=== PATIENT | female | born 1935 | race Caucasian/White ===

== ENCOUNTER 2022-01-25 16:37 | Inpatient (IN) | payer MEDICARE, SELFPAY ==
--- NOTE | ~2022-01-25 | CT_ITS ---
EXAMINATION: CT HEAD WITHOUT CONTRAST CLINICAL INFORMATION: Confusion COMPARISON: None TECHNIQUE: Imaging was performed from the skull base to vertex without intravenous administration of contrast. This CT examination was performed using dose optimization techniques as appropriate, variously including the following: *Automated exposure control *Adjustment of mA and/or kV according to patient size (this includes techniques or standardized protocols for targeted exams where dose is matched to indication/reason for exam; i.e. extremities or head) *Use of iterative reconstruction technique Total exam dose length product: 632 mGy-cm FINDINGS: No intra or extra-axial fluid collection, hemorrhage, or mass. No ventriculomegaly. No midline shift or herniation. Basal cisterns are patent. Serrano-white matter differentiation is maintained. No territorial encephalomalacia. Proportional prominence of the ventricles and sulcal spaces is consistent with mild volume loss. Patchy periventricular and deep white matter hypoattenuation is consistent with moderate small vessel ischemic changes. Basal ganglia, bilateral cerebellar and scattered punctate supratentorial white matter calcifications are noted incidentally. No calvarial fracture or soft tissue abnormality. The mastoid air cells and visualized portions of the paranasal sinuses are well aerated. Status post bilateral lens extractions. CT/CT head/brain wo con IMPRESSION: 1. No acute intracranial pathology. 2. Mild cerebral atrophy and moderate chronic small vessel ischemic white matter change.
--- NOTE | 2022-01-25 16:40 | ED_ITS ---
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 Patient's provider from the assisted living facility, [facility] called and explained the patient has been escalating. States that she tried to order labs on the patient and a urine sample but they haven't been done. She also states she started the patient on Zoloft and Trazadone but it doesn't seem to be helping. Patient is alert and oriented to herself but is confused about time and location. Patient denies any complaints at this time. <IRIS Munroe - Last Filed: 01/25/22 17:46> Onset (ago): day(s) <IRIS Munroe - Last Filed: 01/25/22 17:46> Severity scale (1-10): 1 <IRIS Munroe - Last Filed: 01/25/22 17:46> Relieving factors: none <IRIS Munroe - Last Filed: 01/25/22 17:46> Exacerbating factors: none <IRIS Munroe Last Filed: 01/25/22 17:46> Associated symptoms: denies other symptoms <IRIS Munroe - Last Filed: 01/25/22 17:46> Treatments prior to arrival: none <IRIS Munroe Last Filed: 01/25/22 17:46> Related Data Home medications: Home Medications Medication Instructions Recorded Confirmed sertraline 50 mg tablet 50 mg PO DAILY 01/26/22 01/26/22 trazodone 50 mg tablet 25 mg PO BID 01/26/22 01/26/22 <IRIS Munroe Last Filed: 01/25/22 17:46> Allergies/adverse reactions: Allergies Allergy/AdvReac Type Severity Reaction Status Date / Time codeine Allergy Mild Hives Verified 01/25/22 16:47 Sulfa (Sulfonamide Allergy Mild HIVES Verified 01/25/22 16:47 Antibiotics) <IRIS Munroe Last Filed: 01/25/22 17:46> Review of Systems Constitutional: Constitutional: Reports no additional constitutional complaints, Denies chills, Denies fever(s) and Denies night sweats <IRIS Munroe Last Filed: 01/25/22 17:46> Eyes: Eyes: Reports no additional eye complaints, Denies blurry vision, Denies change in vision, Denies diplopia, Denies eye discharge, Denies loss of vision and Denies eye pain <IRIS Munroe Last Filed: 01/25/22 17:46> ENT: Denies dizziness <IRIS Munroe Last Filed: 01/25/22 17:46> Cardiovascular: Cardiovascular: Reports no additional cardiovascular complaints, Denies chest pain, Denies lightheadedness, Denies Loss of Consciousness and Denies dyspnea <IRIS Munroe Last Filed: 01/25/22 17:46> Respiratory: Respiratory: Reports no additional respiratory complaints and Denies dyspnea <IRIS Munroe Last Filed: 01/25/22 17:46> Gastrointestinal: Gastrointestinal: Reports no additional gastrointestinal complaints, Denies abdominal pain, Denies melena, Denies hematochezia, Denies change in bowel habits and Denies change in stool character <IRIS Munroe Last Filed: 01/25/22 17:46> Genitourinary: Genitourinary: Denies hematuria, Denies urinary frequency, Denies dysuria, Denies urinary incontinence, Denies urinary hesitancy and Denies urinary urgency <IRIS Munroe Last Filed: 01/25/22 17:46> Musculoskeletal: Musculoskeletal: Reports no additional musculoskeletal complaints, Denies numbness and Denies tingling <IRIS Munroe - Last Filed: 01/25/22 17:46> Neurologic: Reports confusion, Denies dizziness, Denies loss of vision, Reports memory loss, Denies numbness and Denies tingling <IRIS Munroe - Last Filed: 01/25/22 17:46> Psychiatric: Psychiatric: Reports confusion, Reports irritability and Reports memory loss <IRIS Munroe - Last Filed: 01/25/22 17:46> Endocrine: Endocrine: Reports no additional endocrine complaints <IRIS Munroe - Last Filed: 01/25/22 17:46> Hematologic/Lymphatic: Hematologic/Lymphatic: Reports no additional hematologic/lymphatic complaints <IRIS Munroe - Last Filed: 01/25/22 17:46> Allergic/Immunologic: Allergic/Immunologic: Reports no additional allergic/imm unologic complaints <IRIS Munroe - Last Filed: 01/25/22 17:46> [facility] Past Medical History Attestation statement: The following information was validated with the patient. <IRIS Munroe - Last Filed: 01/25/22 17:46> Source: old records reviewed <IRIS Munroe - Last Filed: 01/25/22 17:46> Social History Social History: Social History Advance Directives: Yes Advance Directives Information Provided: No Advance Directives on File: No <IRIS Munroe - Last Filed: 01/25/22 17:46> Physical Exam ED Vital Signs: Vital Signs - 24 hr 01/25/22 16:53 01/25/22 18:00 01/25/22 20:00 Temperature 98.4 F 97.9 F 97.2 F Pulse Rate 69 61 64 Respiratory Rate 18 16 16 Blood Pressure 131/49 L 139/76 130/72 Pulse Oximetry 90 L 98 98 Oxygen Delivery Method Room Air Room Air Room Air 01/25/22 22:00 01/26/22 06:00 01/26/22 13:23 Temperature 98.2 F Pulse Rate 61 55 61 Respiratory Rate 16 16 18 Blood Pressure 105/45 L 144/54 H Pulse Oximetry 98 96 97 Oxygen Delivery Method Room Air Nasal Cannula Room Air BMI result Body Mass Index 23.6 <IRIS Munroe - Last Filed: 01/25/22 17:46> Vital Signs - 24 hr 01/25/22 16:53 01/25/22 18:00 01/25/22 20:00 Temperature 98.4 F 97.9 F 97.2 F Pulse Rate 69 61 64 Respiratory Rate 18 16 16 Blood Pressure 131/49 L 139/76 130/72 Pulse Oximetry 90 L 98 98 Oxygen Delivery Method Room Air Room Air Room Air 01/25/22 22:00 01/26/22 06:00 01/26/22 13:23 Temperature 98.2 F Pulse Rate 61 55 61 Respiratory Rate 16 16 18 Blood Pressure 105/45 L 144/54 H Pulse Oximetry 98 96 97 Oxygen Delivery Method Room Air Nasal Cannula Room Air BMI result Body Mass Index 23.6 <IRIS Chacko - Last Filed: 01/26/22 13:40> Const General: confusion <IRIS Munroe - Last Filed: 01/25/22 17:46> Nutritional Appearance: well nourished <IRIS Munroe - Last Filed: 01/25/22 17:46> Orientation/consciousness: confusion <IRIS Munroe - Last Filed: 01/25/22 17:46> Limitations: no limitations <IRIS Munroe - Last Filed: 01/25/22 17:46> HENMT Head: Yes normal to inspection and Yes atraumatic <IRIS Munroe - Last Filed: 01/25/22 17:46> Ears: hearing grossly normal bilaterally and external ears normal <IRIS Munroe - Last Filed: 01/25/22 17:46> General nose exam: Normal external nose present, no nasal discharge noted and no epistaxis <IRIS Munroe - Last Filed: 01/25/22 17:46> Face and sinus: Yes normal facial exam, No abrasion and No laceration <IRIS Munroe Last Filed: 01/25/22 17:46> Mouth: Normal oral and palatal mucosa present, no drooling and no muffled voice <IRIS Munroe Last Filed: 01/25/22 17:46> Eyes General: appearance normal, both eyes and all related structures <IRIS Munroe - Last Filed: 01/25/22 17:46> Periorbital: periorbital findings normal <Xi Harman PA - Last Filed: 01/25/22 17:46> Eyelids: Yes eyelids normal <Xi Harman PA - Last Filed: 01/25/22 17:46> Conjunctivae: conjunctivae normal <Xi Harman PA - Last Filed: 01/25/22 17:46> Pupils: Equal, round and reactive pupils present <Xi Harman PA - Last Filed: 01/25/22 17:46> EOM: EOMs intact bilaterally <Xi Harman PA - Last Filed: 01/25/22 17:46> Neck Neck: Yes normal visual inspection, Yes full ROM and Yes no lymphadenopathy <Xi Harman PA - Last Filed: 01/25/22 17:46> Chest Chest palpation & inspection: normal inspection of the chest <Xi HarmanIRIS - Last Filed: 01/25/22 17:46> Resp Effort & Inspection: normal respiratory effort and able to speak in complete sentences <Xi Harman PA - Last Filed: 01/25/22 17:46> Auscultation: clear to auscultation bilaterally <Xi Harman PA - Last Filed: 01/25/22 17:46> Cardio Rate: regular rate <Xi Harman PA - Last Filed: 01/25/22 17:46> Rhythm: regular rhythm <Xi Harman PA - Last Filed: 01/25/22 17:46> GI Inspection: Yes normal to inspection <Xi Harman PA - Last Filed: 01/25/22 17:46> Palpation (GI): Soft to palpation, not firm, nontender and no guarding <Xi Harman PA - Last Filed: 01/25/22 17:46> Neuro General: confusion <Xi Harman PA - Last Filed: 01/25/22 17:46> Cranial nerves: Yes Equal, round and reactive pupils present <Xi HarmanIRIS - Last Filed: 01/25/22 17:46> Cognition (Neuro): normal cognition <Xi HarmanIRIS - Last Filed: 01/25/22 17:46> Motor exam (neuro): 5/5 motor strength present throughout <IRIS Munroe - Last Filed: 01/25/22 17:46> Sensory Exam: Normal double simultaneous stimulation for sensation <IRIS Munroe - Last Filed: 01/25/22 17:46> Coordination: [id number] test normal <IRIS Munroe - Last Filed: 01/25/22 17:46> Extrem General: Yes normal to inspection, Yes full ROM and Yes capillary refill normal <IRIS Munroe - Last Filed: 01/25/22 17:46> Psych Appearance: grossly normal <IRIS Munroe - Last Filed: 01/25/22 17:46> Mental Status: mental status grossly normal <IRIS Munroe - Last Filed: 01/25/22 17:46> Affect: normal affect <IRIS Munroe - Last Filed: 01/25/22 17:46> Attitude: cooperative <IRIS Munroe - Last Filed: 01/25/22 17:46> Thought process: Illogical thought process present <IRIS Munroe - Last Filed: 0 01/25/22 17:46> Insight: Limited insight present (Psych) <IRIS Munroe - Last Filed: 01/25/22 17:46> Course Course Course Narrative: Spoke to [facility] prior to the patient's arrival. She requested the patient be cleared of delirium with basic labs, urine, and head CT and then started on anti-psychotic medications. She stated that the patient will be accepted back to her current facility as long as she is no longer combative. China can be reached at [phone] <IRIS Munroe - Last Filed: 01/25/22 17:46> Reevaluation(s) Reevaluation #1: 01/26/22--physician observation continued. Labs/imaging reviewed. Pending psychiatry consult. Patient agitated this morning, yelling and arguing with staff, not redirectable. IM Zyprexa ordered for patient and staff safety. <IRIS Chacko Last Filed: 01/26/22 13:40> Time: 09:59 <IRIS Chacko - Last Filed: 01/26/22 13:40> Reevaluation #2: Patient never received previous dose of IM Zyprexa, was able to be redirected. Now patient aggravated/aggressive and striking at staff. Will now give IM Zyprexa <IRIS Chacko - Last Filed: 01/26/22 13:40> Time: 13:24 <IRIS Chacko - Last Filed: 01/26/22 13:40> Medical Decision Making MDM Narrative Medical decision making narrative: Patient is an 86 year old female presenting to the emergency department today with increased agitation. Patient's physical exam was unremarkable. Patient's lab work and imaging is still pending as well as a psychiatry consult. Patient signed out to [facility]. <IRIS Munroe - Last Filed: 01/25/22 17:46> Differential Diagnosis Differential Diagnosis: psychosis <IRIS Munroe - Last Filed: 01/25/22 17:46> Medical Records Medical records reviewed: Yes I reviewed the patient's medical records. <IRIS Munroe - Last Filed: 01/25/22 17:46> Lab Data Result diagrams: : 01/25/22 19:34 01/25/22 19:59 <IRIS Munroe - Last Filed: 01/25/22 17:46> Labs: Lab Results 01/25/22 01/25/22 01/25/22 Range/Units 18:30 18:30 19:34 WBC 12.3 H (4.8-10.8) X10*3/uL RBC 4.19 L (4.20-5.50) X10*6/uL Hgb 13.4 (12.0-16.0) g/dl Hct 39.3 (37.0-47.0) % MCV 93.8 (80.0-98.0) fL MCH 32.0 (27.0-33.0) pg MCHC 34.1 (31.0-35.0) g/dl RDW 12.4 (11.0-16.0) % Plt Count 283 (160-400) X10*3/uL MPV 10.8 (9.4-12.3) fL Immature Gran % (Auto) 0.3 (0.0-0.4) % Neut % (Auto) 63.4 (45-73) % Lymph % (Auto) 27.3 (20-40) % [place] % (Auto) 6.4 (2-11) % Eos % (Auto) 2.0 (0-4) % Baso % (Auto) 0.6 (0-2) % Lymph # (Auto) 3.4 (1.2-4.9) X10*3/uL [place] # (Auto) 0.8 (0.1-1.2) X10*3/uL Eos # (Auto) 0.3 (0.0-0.4) X10*3/uL Baso # (Auto) 0.1 (0.0-0.2) X10*3/uL Abs Immat Gran (auto) 0.04 H (0.00-0.03) X10*3/uL Absolute Neuts (auto) 7.8 (2.0-8.3) x10*3/uL Absolute Nucleated RBC 0.000 (0.0-0.012) X10*3/uL Nucleated RBC % (auto) 0.0 (0.0-0.2) /100WBC Sodium (135-145) mmol/L Potassium (3.3-5.1) mmol/L Chloride (96-108) mmol/L Carbon Dioxide (22-29) mmol/L Anion Gap (12-20) BUN (9-16) mg/dL Creatinine (0.5-1.4) mg/dL Estim Creat Clear Calc Estimated GFR Random Glucose (60-115) mg/dL Calcium (8.4-10.2) mg/dL Magnesium (1.6-2.6) mg/dL Total Bilirubin (0.0-1.0) mg/dL AST (5-31) U/L ALT (0-31) U/L Alkaline Phosphatase (39-117) U/L Total Protein (6.5-8.0) g/dL Albumin (3.5-5.0) g/dL Urine Color Urine Appearance Urine pH (5.0-8.0) Ur Specific Valentine (1.005-1.025) Urine Protein (NEG-TRACE) MG/DL Urine Glucose (UA) (NEG) MG/DL Urine Ketones (NEG) MG/DL Urine Blood (NEG) Urine Nitrite (NEG) Ur Leukocyte Esterase (NEG) Urine RBC (0) /HPF Urine WBC (0-4) /HPF Ur Squamous Epith Cells /LPF Urine Bacteria /LPF Urine Mucus /LPF COVID-19 (KULDIP) Negative (Negative) COVID-19 Clin Com See Note Influenza Type A (LEONIE) Negative (Negative) Influenza Type B (LEONIE) Negative (Negative) Influenza A & B Note See Note 01/25/22 01/25/22 Range/Units 19:59 19:59 WBC (4.8-10.8) X10*3/uL RBC (4.20-5.50) X10*6/uL Hgb (12.0-16.0) g/dl Hct (37.0-47.0) % MCV (80.0-98.0) fL MCH (27.0-33.0) pg MCHC (31.0-35.0) g/dl RDW (11.0-16.0) % Plt Count (160-400) X10*3/uL MPV (9.4-12.3) fL Immature Gran % (Auto) (0.0-0.4) % Neut % (Auto) (45-73) % Lymph % (Auto) (20-40) % [place] % (Auto) (2-11) % Eos % (Auto) (0-4) % Baso % (Auto) (0-2) % Lymph # (Auto) (1.2-4.9) X10*3/uL [place] # (Auto) (0.1-1.2) X10*3/uL Eos # (Auto) (0.0-0.4) X10*3/uL Baso # (Auto) (0.0-0.2) X10*3/uL Abs Immat Gran (auto) (0.00-0.03) X10*3/uL Absolute Neuts (auto) (2.0-8.3) x10*3/uL Absolute Nucleated RBC (0.0-0.012) X10*3/uL Nucleated RBC % (auto) (0.0-0.2) /100WBC Sodium 138 (135-145) mmol/L Potassium 4.0 (3.3-5.1) mmol/L Chloride 110 H (96-108) mmol/L Carbon Dioxide 18 L (22-29) mmol/L Anion Gap 14 (12-20) BUN 20 H (9-16) mg/dL Creatinine 0.82 (0.5-1.4) mg/dL Estim Creat Clear Calc 44.3 Estimated GFR > 60 Random Glucose 102 (60-115) mg/dL Calcium 8.8 (8.4-10.2) mg/dL Magnesium 2.0 (1.6-2.6) mg/dL Total Bilirubin 0.3 (0.0-1.0) mg/dL AST 26 (5-31) U/L ALT 19 (0-31) U/L Alkaline Phosphatase 75 (39-117) U/L Total Protein 6.4 L (6.5-8.0) g/dL Albumin 3.6 (3.5-5.0) g/dL Urine Color YELLOW Urine Appearance CLEAR Urine pH 5.5 (5.0-8.0) Ur Specific Valentine 1.015 (1.005-1.025) Urine Protein NEG (NEG-TRACE) MG/DL Urine Glucose (UA) NEG (NEG) MG/DL Urine Ketones 5 (NEG) MG/DL Urine Blood NEG (NEG) Urine Nitrite NEG (NEG) Ur Leukocyte Esterase TRACE H (NEG) Urine RBC 1-4 (0) /HPF Urine WBC 0-2 (0-4) /HPF Ur Squamous Epith Cells TRACE /LPF Urine Bacteria NONE /LPF Urine Mucus TRACE /LPF COVID-19 (KULDIP) (Negative) COVID-19 Clin Com Influenza Type A (LEONIE) (Negative) Influenza Type B (LEONIE) (Negative) Influenza A & B Note <IRIS Munroe - Last Filed: 01/25/22 17:46> Lab Results 01/25/22 01/25/22 01/25/22 Range/Units 18:30 18:30 19:34 WBC 12.3 H (4.8-10.8) X10*3/uL RBC 4.19 L (4.20-5.50) X10*6/uL Hgb 13.4 (12.0-16.0) g/dl Hct 39.3 (37.0-47.0) % MCV 93.8 (80.0-98.0) fL MCH 32.0 (27.0-33.0) pg MCHC 34.1 (31.0-35.0) g/dl RDW 12.4 (11.0-16.0) % Plt Count 283 (160-400) X10*3/uL MPV 10.8 (9.4-12.3) fL Immature Gran % (Auto) 0.3 (0.0-0.4) % Neut % (Auto) 63.4 (45-73) % Lymph % (Auto) 27.3 (20-40) % [place] % (Auto) 6.4 (2-11) % Eos % (Auto) 2.0 (0-4) % Baso % (Auto) 0.6 (0-2) % Lymph # (Auto) 3.4 (1.2-4.9) X10*3/uL [place] # (Auto) 0.8 (0.1-1.2) X10*3/uL Eos # (Auto) 0.3 (0.0-0.4) X10*3/uL Baso # (Auto) 0.1 (0.0-0.2) X10*3/uL Abs Immat Gran (auto) 0.04 H (0.00-0.03) X10*3/uL Absolute Neuts (auto) 7.8 (2.0-8.3) x10*3/uL Absolute Nucleated RBC 0.000 (0.0-0.012) X10*3/uL Nucleated RBC % (auto) 0.0 (0.0-0.2) /100WBC Sodium (135-145) mmol/L Potassium (3.3-5.1) mmol/L Chloride (96-108) mmol/L Carbon Dioxide (22-29) mmol/L Anion Gap (12-20) BUN (9-16) mg/dL Creatinine (0.5-1.4) mg/dL Estim Creat Clear Calc Estimated GFR Random Glucose (60-115) mg/dL Calcium (8.4-10.2) mg/dL Magnesium (1.6-2.6) mg/dL Total Bilirubin (0.0-1.0) mg/dL AST (5-31) U/L ALT (0-31) U/L Alkaline Phosphatase (39-117) U/L Total Protein (6.5-8.0) g/dL Albumin (3.5-5.0) g/dL Urine Color Urine Appearance Urine pH (5.0-8.0) Ur Specific Valentine (1.005-1.025) Urine Protein (NEG-TRACE) MG/DL Urine Glucose (UA) (NEG) MG/DL Urine Ketones (NEG) MG/DL Urine Blood (NEG) Urine Nitrite (NEG) Ur Leukocyte Esterase (NEG) Urine RBC (0) /HPF Urine WBC (0-4) /HPF Ur Squamous Epith Cells /LPF Urine Bacteria /LPF Urine Mucus /LPF COVID-19 (KULDIP) Negative (Negative) COVID-19 Clin Com See Note Influenza Type A (LEONIE) Negative (Negative) Influenza Type B (LEONIE) Negative (Negative) Influenza A & B Note See Note 01/25/22 01/25/22 Range/Units 19:59 19:59 WBC (4.8-10.8) X10*3/uL RBC (4.20-5.50) X10*6/uL Hgb (12.0-16.0) g/dl Hct (37.0-47.0) % MCV (80.0-98.0) fL MCH (27.0-33.0) pg MCHC (31.0-35.0) g/dl RDW (11.0-16.0) % Plt Count (160-400) X10*3/uL MPV (9.4-12.3) fL Immature Gran % (Auto) (0.0-0.4) % Neut % (Auto) (45-73) % Lymph % (Auto) (20-40) % [place] % (Auto) (2-11) % Eos % (Auto) (0-4) % Baso % (Auto) (0-2) % Lymph # (Auto) (1.2-4.9) X10*3/uL [place] # (Auto) (0.1-1.2) X10*3/uL Eos # (Auto) (0.0-0.4) X10*3/uL Baso # (Auto) (0.0-0.2) X10*3/uL Abs Immat Gran (auto) (0.00-0.03) X10*3/uL Absolute Neuts (auto) (2.0-8.3) x10*3/uL Absolute Nucleated RBC (0.0-0.012) X10*3/uL Nucleated RBC % (auto) (0.0-0.2) /100WBC Sodium 138 (135-145) mmol/L Potassium 4.0 (3.3-5.1) mmol/L Chloride 110 H (96-108) mmol/L Carbon Dioxide 18 L (22-29) mmol/L Anion Gap 14 (12-20) BUN 20 H (9-16) mg/dL Creatinine 0.82 (0.5-1.4) mg/dL Estim Creat Clear Calc 44.3 Estimated GFR > 60 Random Glucose 102 (60-115) mg/dL Calcium 8.8 (8.4-10.2) mg/dL Magnesium 2.0 (1.6-2.6) mg/dL Total Bilirubin 0.3 (0.0-1.0) mg/dL AST 26 (5-31) U/L ALT 19 (0-31) U/L Alkaline Phosphatase 75 (39-117) U/L Total Protein 6.4 L (6.5-8.0) g/dL Albumin 3.6 (3.5-5.0) g/dL Urine Color YELLOW Urine Appearance CLEAR Urine pH 5.5 (5.0-8.0) Ur Specific Valentine 1.015 (1.005-1.025) Urine Protein NEG (NEG-TRACE) MG/DL Urine Glucose (UA) NEG (NEG) MG/DL Urine Ketones 5 (NEG) MG/DL Urine Blood NEG (NEG) Urine Nitrite NEG (NEG) Ur Leukocyte Esterase TRACE H (NEG) Urine RBC 1-4 (0) /HPF Urine WBC 0-2 (0-4) /HPF Ur Squamous Epith Cells TRACE /LPF Urine Bacteria NONE /LPF Urine Mucus TRACE /LPF COVID-19 (KULDIP) (Negative) COVID-19 Clin Com Influenza Type A (LEONIE) (Negative) Influenza Type B (LEONIE) (Negative) Influenza A & B Note <IRIS Chacko - Last Filed: 01/26/22 13:40> Discharge Plan Discharge Clinical Impression: Aggression <IRIS Munroe - Last Filed: 01/25/22 17:46> Patient Disposition: Still a Patient <IRIS Munroe - Last Filed: 01/25/22 17:46> Prescriptions: No Action trazodone 50 mg tablet 25 mg PO BID sertraline 50 mg tablet 50 mg PO DAILY <IRIS Munroe - Last Filed: 01/25/22 17:46>
--- NOTE | 2022-01-25 16:48 | ECG_ITS ---
Test Reason : ALTERED MENTAL Blood Pressure : / mmHG Vent. Rate : 062 BPM Atrial Rate : 062 BPM P-R Int : 134 ms QRS Dur : 088 ms QT Int : 408 ms P-R-T Axes : 062 048 082 degrees QTc Int : 414 ms Normal sinus rhythm Nonspecific T wave abnormality Abnormal ECG No previous ECGs available Referred By: Xi Harman Electronically Signed By:KYLE SANCHEZ MD
[2022-01-25 16:53] VITALS: BP 112/53; BP 131/49; PULSE 100; PULSE 69; RESP 18; TEMP 36.9; O2SAT 90; O2SAT 97; BMI 23.6
[2022-01-25 18:00] VITALS: BP 139/76; PULSE 61; RESP 16; TEMP 36.6; O2SAT 98
[2022-01-25] MEDS: OLANZapine 10 MG TABLET PO (18:36)
[2022-01-25 19:02] LABS: COVID-19 Test Negative (Negative); IDNOW Serial# 16C4AD1C; Influenza A Negative (Negative); Influenza B2 Negative (Negative)
--- NOTE | 2022-01-25 19:16 | PC.NURSE ---
PATIENT IS COMBATIVE ,UNABLE TO GET LABS ,RN AND PROVIDER AWARE .
[2022-01-25 19:40] LABS: MANUAL DIFF FLAG NO
[2022-01-25 19:42] LABS: Basophils Absolute Auto 0.1 X10*3/uL (0.0-0.2); Basophils Percent Auto 0.6 % (0-2); Eosinophils Absolute Auto 0.3 X10*3/uL (0.0-0.4); Hematocrit 39.3 % (37.0-47.0); Hemoglobin 13.4 g/dl (12.0-16.0); Imm Gran Abs Auto 0.04 X10*3/uL (0.00-0.03); Imm Gran Pct Auto 0.3 % (0.0-0.4); Lymphocytes Absolute Auto 3.4 X10*3/uL (1.2-4.9); Lymphocytes Percent Auto 27.3 % (20-40); Mean Corpuscular HGB Conc 34.1 g/dl (31.0-35.0); Mean Corpuscular Volume 93.8 fL (80.0-98.0); Mean Platelet Volume 10.8 fL (9.4-12.3); Monocytes Absolute Auto 0.8 X10*3/uL (0.1-1.2); Monocytes Percent Auto 6.4 % (2-11); Neutrophils Absolute Auto 7.8 x10*3/uL (2.0-8.3); Neutrophils Percent Auto 63.4 % (45-73); Platelet Count 283 X10*3/uL (160-400); Red Blood Count 4.19 X10*6/uL (4.20-5.50); Red Cell Distribution Width 12.4 % (11.0-16.0); White Blood Count 12.3 X10*3/uL (4.8-10.8)
[2022-01-25 20:00] VITALS: BP 130/72; PULSE 64; RESP 16; TEMP 36.2; O2SAT 98
[2022-01-25 20:11] LABS: Appearance Urine CLEAR; Color Urine YELLOW; Glucose Urine UA NEG (NEG); Leukocyte Esterase Urine TRACE (NEG); Nitrite Urine NEG (NEG); PH 5.5 (5.0-8.0); Specific Gravity - Urine 1.015 (1.005-1.025); Urine Blood NEG (NEG); Urine Ketones 5 MG/DL (NEG); Urine Protein NEG (NEG-TRACE)
[2022-01-25 20:25] LABS: Alanine Aminotransferase 19 U/L (0-31); Albumin Level 3.6 g/dL (3.5-5.0); Alkaline Phosphatase 75 U/L (39-117); Anion Gap 14 (12-20); Aspartate Amino Transferase 26 U/L (5-31); Bilirubin Total 0.3 mg/dL (0.0-1.0); Blood Urea Nitrogen 20 mg/dL (9-16); Calcium 8.8 mg/dL (8.4-10.2); Carbon Dioxide 18 mmol/L (22-29); Chloride 110 mmol/L (96-108); Creatinine Clr Calc Pharmacy 44.3; Estimated Glomerular Filt Rate > 60; Glucose Random 102 mg/dL (60-115); Sodium 138 mmol/L (135-145); Total Protein 6.4 g/dL (6.5-8.0)
[2022-01-25 20:36] LABS: Mucus Urine TRACE /LPF; Squamous Epithelial Cell Urine TRACE /LPF; WBC Urine 0-2 /HPF (0-4)
[2022-01-25 22:00] VITALS: PULSE 61; RESP 16; TEMP 36.8; O2SAT 98
[2022-01-26] VITALS (9 sets, daily range): BP systolic 105–152; BP diastolic 45–60; PULSE 55–72; RESP 16–20; TEMP 36.4–36.6; O2SAT 94–99; BMI 21.4
--- NOTE | 2022-01-26 08:11 | PHA.MEDREC ---
Pharmacy Consult ? Medication Reconciliation Pharmacy has completed the medication reconciliation. Patient came from [facility] with a medication list. Katty Botello, JuddD
--- NOTE | 2022-01-26 10:17 | PC.NURSE ---
Patient step miranda Watts cell # [phone]. would like to be updated on patients disposition after psych consult.
[2022-01-26] MEDS: OLANZapine 10 MG VIAL 5 MG IM ×2 (13:24→18:15)
--- NOTE | 2022-01-26 13:24 | PC.NURSE ---
Patient combative, uncooperative, attempting to climb out of bed and is unsteady on feet and unsafe. Not allowing staff to assist or help patient. Patient is violent and unwilling to take any medications. Tried to ensure needs were met. Attempted reorienting patient. Patient medicated with IM olanzapine as ordered. Respirations 20. Will continue to monitor.
--- NOTE | 2022-01-26 13:39 | PC.NURSE ---
Patient remains alert, combative, and disoriented. Continues to attempt to get out of bed. Staff at bedside to keep patient safe. Patient arguing she does not want help but is unsteady. Patient refuses vitals at this time. Respirations- 18.
--- NOTE | 2022-01-26 13:54 | PC.NURSE ---
Patient eating lunch independently on stretcher. Calm and cooperative at this time. Patient becomes agitated when attempting vitals. Respirations appear regular and even with equal chest rise/fall. Will continue to monitor.
--- NOTE | 2022-01-26 14:09 | PC.NURSE ---
Patient remains calm and cooperative. Remaining on stretcher, sitting upright, and alert. Respirations regular and even. Skin PWD. Refusing vitals, states I don't like that! Will continue to monitor.
--- NOTE | 2022-01-26 14:24 | PC.NURSE ---
Patient remains sitting upright on stretcher and is calm and cooperative. Respirations remain regular and even. Chela SIMMONS at bedside for 1 hour re-evaluation.
--- NOTE | 2022-01-26 14:34 | P.CNPS_ITS ---
History of Present Illness Date of Service: 01/26/2022 Chief Complaint: Combativeness Reason for Consult: combative in setting of dementia Discussed with referring provider: Yes Sources of Information: patient interviewed, chart reviewed and crisis/core team assessment reviewed HPI Narrative: Mrs. Luo is a 86 year-old woman with hx of alzheirmer's disease who resides at [facility] Memory unit. Mrs. Luo was brought via EMS to [facility] ED due to increase agression and agitation towards staff and others residents. Utox was negative. CBC with dif show slightly elevated WBC (12), CMP shows elevated BUN (20) but Cr wnl, elevated Cl. Head CT shows no acute pathology but does show volume loss and microvascular changes. Collateral information gathered from pt's OP geriatric provider China Price NP ([phone]) who reports pt has been on memory unit for past 2-3 weeks and has been combative, entering other residents room, at times difficult to redirect. China reports she started pt on sertraline and zoloft. Pt's step son, Mac ([phone]) reports pt with long hx of AD, living in her house until recently but he realizes that impairments had been going on for a very long time. He notes combativeness increasing as pt is confused. Mrs. Luo has been chemically restraint twice while in the ED with Olanzapine 5-10mg IM. Today, pt resting in bed, she tells this content writer that she is at her house and they (pointing at staff in ED) were trying to sit her at the dinner table. She states she didn't want to eat. She also has been yelling at RN and other staff that come to her room to get out of my house! Pt fairly pleasant as this content writer goes with her conversation. She reports she cooks and likes the food (in the hospital) which she thinks she cooked earlier. Past Psychiatric History: Inpatient: none OP: [facility] Past trials: sertraline, trazodone. Medical Evaluation Reviewed: Yes Review of Systems Review of Systems Yes Unobtainable due to mental status PMFSH Family History: unknown Social History: lives in memory unit at [facility] in [place]. She has step son, Mac. Substance History: None Trauma History: Unknown Diagnostics Vital Signs (24Hr): Vital Signs - 24 hr 01/25/22 16:53 01/25/22 18:00 01/25/22 20:00 Temperature 98.4 F 97.9 F 97.2 F Pulse Rate 69 61 64 Respiratory Rate 18 16 16 Blood Pressure 131/49 L 139/76 130/72 Pulse Oximetry 90 L 98 98 Oxygen Delivery Method Room Air Room Air Room Air 01/25/22 22:00 01/26/22 06:00 01/26/22 13:23 Temperature 98.2 F Pulse Rate 61 55 61 Respiratory Rate 16 16 18 Blood Pressure 105/45 L 144/54 H Pulse Oximetry 98 96 97 Oxygen Delivery Method Room Air Nasal Cannula Room Air 01/26/22 13:24 01/26/22 13:39 01/26/22 13:54 Temperature Pulse Rate Respiratory Rate 20 18 18 Blood Pressure Pulse Oximetry Oxygen Delivery Method BMI result Body Mass Index 23.6 Labs Results: 01/25/22 19:34 01/25/22 19:59 Labs: Laboratory Results - last 48 hr 01/25/22 01/25/22 01/25/22 18:30 18:30 19:34 WBC 12.3 H RBC 4.19 L Hgb 13.4 Hct 39.3 MCV 93.8 MCH 32.0 MCHC 34.1 RDW 12.4 Plt Count 283 MPV 10.8 Immature Gran % (Auto) 0.3 Neut % (Auto) 63.4 Lymph % (Auto) 27.3 [place] % (Auto) 6.4 Eos % (Auto) 2.0 Baso % (Auto) 0.6 Lymph # (Auto) 3.4 [place] # (Auto) 0.8 Eos # (Auto) 0.3 Baso # (Auto) 0.1 Abs Immat Gran (auto) 0.04 H Absolute Neuts (auto) 7.8 Absolute Nucleated RBC 0.000 Nucleated RBC % (auto) 0.0 Sodium Potassium Chloride Carbon Dioxide Anion Gap BUN Creatinine Estim Creat Clear Calc Estimated GFR Random Glucose Calcium Magnesium Total Bilirubin AST ALT Alkaline Phosphatase Total Protein Albumin Urine Color Urine Appearance Urine pH Ur Specific [place] Urine Protein Urine Glucose (UA) Urine Ketones Urine Blood Urine Nitrite Ur Leukocyte Esterase Urine RBC Urine WBC Ur Squamous Epith Cells Urine Bacteria Urine Mucus COVID-19 (KULDIP) Negative COVID-19 Clin Com See Note Influenza Type A (LEONIE) Negative Influenza Type B (LEONIE) Negative Influenza A & B Note See Note 01/25/22 01/25/22 19:59 19:59 WBC RBC Hgb Hct MCV MCH MCHC RDW Plt Count MPV Immature Gran % (Auto) Neut % (Auto) Lymph % (Auto) [place] % (Auto) Eos % (Auto) Baso % (Auto) Lymph # (Auto) [place] # (Auto) Eos # (Auto) Baso # (Auto) Abs Immat Gran (auto) Absolute Neuts (auto) Absolute Nucleated RBC Nucleated RBC % (auto) Sodium 138 Potassium 4.0 Chloride 110 H Carbon Dioxide 18 L Anion Gap 14 BUN 20 H Creatinine 0.82 Estim Creat Clear Calc 44.3 Estimated GFR > 60 Random Glucose 102 Calcium 8.8 Magnesium 2.0 Total Bilirubin 0.3 AST 26 ALT 19 Alkaline Phosphatase 75 Total Protein 6.4 L Albumin 3.6 Urine Color YELLOW Urine Appearance CLEAR Urine pH 5.5 Ur Specific [place] 1.015 Urine Protein NEG Urine Glucose (UA) NEG Urine Ketones 5 Urine Blood NEG Urine Nitrite NEG Ur Leukocyte Esterase TRACE H Urine RBC 1-4 Urine WBC 0-2 Ur Squamous Epith Cells TRACE Urine Bacteria NONE Urine Mucus TRACE COVID-19 (KULDIP) COVID-19 Clin Com Influenza Type A (LEONIE) Influenza Type B (LEONIE) Influenza A & B Note Imaging Radiology Impressions: ITS Impressions Head CT 01/25/22 17:57 IMPRESSION: 1. No acute intracranial pathology. 2. Mild cerebral atrophy and moderate chronic small vessel ischemic white matter change. Mental Status Exam Mental Status Exam Narrative: Appearance: casually groomed, fair hygiene in NAD Behavior:cooperative. psychomotor:some agitation when redirected due to confusion Speech:some degree of expressive aphasia Thought process:derailment, disorganized Thought content:enyong food but upset staff having her sit around dinner table Mood: good Affect: calm SI:none HI:none VH/AH:none Delusions:none- pt does confabulate but this is not delusion Insight/judgment:impaired x 2. Memory/cog: alert, not oriented to place, situation, month, severely impaired. Medications Medications Current Medications Divalproex Sodium (Divalproex Sodium Sprinkles 125 Mg ) 125 mg PO TID [facility] Pharmacy Consult (Consult Rx Perform Med Rec) 1 each MISCELLANE ONCE PRN PRN Reason: Consult order Risperidone (Risperidone 0.5 Mg Tablet) 0.5 mg PO TID MELANIA Allergies Allergies Allergy/AdvReac Type Severity Reaction Status Date / Time codeine Allergy Mild Hives Verified 01/25/22 16:47 Sulfa (Sulfonamide Allergy Mild HIVES Verified 01/25/22 16:47 Antibiotics) Assessment & Plan Assessment & Plan (1) Alzheimer's dementia with behavioral disturbance: Status: Acute Code(s): G30.9 - Alzheimer's disease, unspecified; F02.81 - Dementia in other diseases classified elsewhere with behavioral disturbance Plan Mrs. Luo is a 86 year-old woman with hx of dementia, brought in via EMS due to increase combative behaviors on memory unit at [facility]. Pt presents as severely impaired in terms of cognitive, orientation, language, executive function. Periods of combativeness in setting of increase confusions s/s to advance dementia. Don't suspect this due to delrium. Discussed risks, benefits and alternative treatment option with pt's step son, Mac who is her HCP ([phone]). PLAN 1. Admit to Older adult unit, at moment on sect 12b as pt does not have capacity to sign CV. May consider CV by HCP once one is brought in. 2. Start depakote 125mg po TID for agitation, combativeness 3. risperidone 0.5mg po TID- monitor EPS, sedation, VS and EKG (maintain Qtc<5 00ms, Mg>2 and K>4) 4. Olanzpaine 5mg po q6h prn agitation, can use olanzapine IM if needed for agit ation 5. aftercare planning- pt can return to [facility] once more stable. I spent minutes with the patient and/or on the patient floor today, greater than?50% of which was spent counseling/coordinating care.
[2022-01-26] MEDS: Divalproex Sodium Sprinkles 125 MG CAP.DR.SPR PO ×2 (14:43→22:07)
[2022-01-26] MEDS: risperiDONE 0.5 MG TABLET PO ×2 (14:43→22:07)
--- NOTE | 2022-01-26 16:35 | MHC.CARE ---
Plan for Pt to be admitted to [place] [id number] for psychiatric treatment.
--- NOTE | 2022-01-26 19:11 | PC.NURSE ---
assumed care at approx 01/26/22 190
[2022-01-26] MEDS: Acetaminophen 325 MG TABLET 650 MG PO (22:07)
[2022-01-26] MEDS: hydrOXYzine HCL 25 MG TABLET PO (22:07)
--- NOTE | 2022-01-27 00:20 | PC.ADMIT ---
Admitted these 86 years old female from the ED department per stretcher accompanied by ED staff, w/ presenting problem of increased aggression and agitation from [facility].Upon admission patient is oriented to the unit, room and staff.Patient is alert and oriented to self only, confused to time and location,Memory does not appear intact. Patient is pleasant,calm and cooperative w/ admission process. She answers some of the questions appropriately and sometimes does not answer appropriately. Skin assessment done.Skin warm and dry, no open areas noted. W/ two bruises noted on her L. arm and no edema noted.Patient said, she wears eyeglasses and has her own teeth. Abdomen soft w/ +bowel sounds i 4 quadrants. Patient said her las BM on 01/26/22. Pt. was in Medication restraint in the ED. Patient can get easily agitated due to confusion. Patient ambulates independently w/ staff assist at times, she is unsteady at times and scored as high fall risk.Has hx of hypothyroidism and has hx of high cholesterol.Patient c/o of pain on her R.thigh and given Tylenol 650 mg. w/ effect.Patient took also her scheduled HS meds. Patient given also Atarax 25 mg. for anxiety, restlessness w/ effect.Patient unable to sign the consents due to confusion.Patient is a section 12-b. Patient is q 5 mins safety checks. We'll continue to monitor patient.Ariana Hernandez made new orders and has been acknowleged.
[2022-01-27 06:00] VITALS: BP 164/78; PULSE 63; RESP 16; TEMP 36.8; O2SAT 96
[2022-01-27 09:56] LABS: Alanine Aminotransferase 21 U/L (0-31); Albumin Level 3.5 g/dL (3.5-5.0); Alkaline Phosphatase 69 U/L (39-117); Anion Gap 16 (12-20); Aspartate Amino Transferase 29 U/L (5-31); Bilirubin Total 0.7 mg/dL (0.0-1.0); Blood Urea Nitrogen 18 mg/dL (9-16); Calcium 8.8 mg/dL (8.4-10.2); Carbon Dioxide 18 mmol/L (22-29); Chloride 111 mmol/L (96-108); Cholesterol 227 mg/dL; Creatinine Clr Calc Pharmacy 49.7; Estimated Glomerular Filt Rate > 60; Glucose Fasting 95 mg/dL (60-99); HDL Cholesterol 35 mg/dL; LDL Cholesterol Calculated 148 mg/dl; Potassium 4.7 mmol/L (3.3-5.1); Sodium 140 mmol/L (135-145); Total Protein 6.3 g/dL (6.5-8.0); Triglycerides 220 mg/dL
[2022-01-27 11:36] VITALS: BP 164/78; PULSE 63; O2SAT 96
--- NOTE | 2022-01-27 15:38 | HO.PSYADMNOT ---
HPI Date of Service: 01/27/22 Chief Complaint: Combativeness Sources of Information: patient interviewed, chart reviewed and crisis/core team assessment reviewed HPI Subjective Notes: Section 12B Narrative: The patient is an 86-year-old female, resident of assisted living facility on the memory unit, with prior diagnosis of dementia Alzheimer's type and psychosis and according to the medication reconciliation form she has been on antipsychotics before. According to the [facility] staff, the patient has been on more aggressive with verbal threats, anxiety and agitation. She was assessed in the emergency room and there were no collateral information at that moment. Medical worker was started and since the patient was not at her baseline she was transferred to this facility. On interview, the patient was pleasant, confused and easily redirectable but she was a very poor historian, she was unable to disclose how come she in the in the hospital what happened it. According to the nursing staff she was compliant with treatment here. The healthcare social worker has talked with the patient and will try to gather collateral information from her family and prior providers. At the moment of the intervention, the patient denies active psychotic symptoms Past Psychiatric History: Inpatient: none OP: [facility] Past trials: sertraline, trazodone. Medical Evaluation Reviewed: Yes [facility] Family History: unknown Social History: lives in memory unit at [facility] in [place]. She has step son, Mac. Substance History: denies Trauma History: Unknown Diagnostics Vital Signs (24Hr): Vital Signs - 24 hr 01/26/22 20:20 01/27/22 06:00 01/27/22 11:36 Temperature 98 F 98.2 F Pulse Rate 72 63 63 Respiratory Rate 17 16 Blood Pressure 131/60 164/78 H 164/78 H Pulse Oximetry 94 96 96 Oxygen Delivery Method Room Air Room Air BMI result Body Mass Index 21.4 Labs Results: 01/25/22 19:34 01/27/22 08:56 Labs: Laboratory Results - last 48 hr 01/25/22 01/25/22 01/25/22 18:30 18:30 19:34 WBC 12.3 H RBC 4.19 L Hgb 13.4 Hct 39.3 MCV 93.8 MCH 32.0 MCHC 34.1 RDW 12.4 Plt Count 283 MPV 10.8 Immature Gran % (Auto) 0.3 Neut % (Auto) 63.4 Lymph % (Auto) 27.3 [place] % (Auto) 6.4 Eos % (Auto) 2.0 Baso % (Auto) 0.6 Lymph # (Auto) 3.4 [place] # (Auto) 0.8 Eos # (Auto) 0.3 Baso # (Auto) 0.1 Abs Immat Gran (auto) 0.04 H Absolute Neuts (auto) 7.8 Absolute Nucleated RBC 0.000 Nucleated RBC % (auto) 0.0 Sodium Potassium Chloride Carbon Dioxide Anion Gap BUN Creatinine Estim Creat Clear Calc Estimated GFR Random Glucose Fasting Glucose Calcium Magnesium Total Bilirubin AST ALT Alkaline Phosphatase Total Protein Albumin Triglycerides Cholesterol LDL Cholesterol, Calc HDL Cholesterol TSH Urine Color Urine Appearance Urine pH Ur Specific [place] Urine Protein Urine Glucose (UA) Urine Ketones Urine Blood Urine Nitrite Ur Leukocyte Esterase Urine RBC Urine WBC Ur Squamous Epith Cells Urine Bacteria Urine Mucus COVID-19 (KULDIP) Negative COVID-19 Clin Com See Note Influenza Type A (LEONIE) Negative Influenza Type B (LEONIE) Negative Influenza A & B Note See Note 01/25/22 01/25/22 01/27/22 19:59 19:59 08:56 WBC RBC Hgb Hct MCV MCH MCHC RDW Plt Count MPV Immature Gran % (Auto) Neut % (Auto) Lymph % (Auto) [place] % (Auto) Eos % (Auto) Baso % (Auto) Lymph # (Auto) [place] # (Auto) Eos # (Auto) Baso # (Auto) Abs Immat Gran (auto) Absolute Neuts (auto) Absolute Nucleated RBC Nucleated RBC % (auto) Sodium 138 140 Potassium 4.0 4.7 Chloride 110 H 111 H Carbon Dioxide 18 L 18 L Anion Gap 14 16 BUN 20 H 18 H Creatinine 0.82 0.73 Estim Creat Clear Calc 44.3 49.7 Estimated GFR > 60 > 60 Random Glucose 102 Fasting Glucose 95 Calcium 8.8 8.8 Magnesium 2.0 Total Bilirubin 0.3 0.7 AST 26 29 ALT 19 21 Alkaline Phosphatase 75 69 Total Protein 6.4 L 6.3 L Albumin 3.6 3.5 Triglycerides 220 Cholesterol 227 LDL Cholesterol, Calc 148 HDL Cholesterol 35 TSH Cancelled Urine Color YELLOW Urine Appearance CLEAR Urine pH 5.5 Ur Specific [place] 1.015 Urine Protein NEG Urine Glucose (UA) NEG Urine Ketones 5 Urine Blood NEG Urine Nitrite NEG Ur Leukocyte Esterase TRACE H Urine RBC 1-4 Urine WBC 0-2 Ur Squamous Epith Cells TRACE Urine Bacteria NONE Urine Mucus TRACE COVID-19 (KULDIP) COVID-19 Clin Com Influenza Type A (LEONIE) Influenza Type B (LEONIE) Influenza A & B Note Imaging Radiology Impressions: ITS Impressions Head CT 01/25/22 17:57 IMPRESSION: 1. No acute intracranial pathology. 2. Mild cerebral atrophy and moderate chronic small vessel ischemic white matter change. Meds/Allergies Meds Home Medications Medication Instructions Recorded Confirmed Type sertraline 50 mg tablet 50 mg PO DAILY 01/26/22 01/26/22 History trazodone 50 mg tablet 25 mg PO BID 01/26/22 01/26/22 History Allergies Allergies Allergy/AdvReac Type Severity Reaction Status Date / Time codeine Allergy Mild Hives Verified 01/25/22 16:47 Sulfa (Sulfonamide Allergy Mild HIVES Verified 01/25/22 16:47 Antibiotics) Mental Status Exam Mental Status Exam Patient Appearance: Appropriate Patient Orientation: Person Level of Consciousness: Awake Patient Behavior: Guarded and Suspicious Mood Description: Withdrawn Affect Description: Anxious and Labile Patient Cognition Impaired: Yes Ability to Follow Directions: Fair Speech Pattern: Clear and Soft-Spoken Hallucinations: None Delusions: Paranoid Ideation Thought Process: Illogical and Evasive Thought Content: positive for [place] and positive for Poverty of Content Judgement: Fair Assessment & Plan Assessment & Plan (1) Alzheimer's dementia with behavioral disturbance: Status: Acute Code(s): G30.9 - Alzheimer's disease, unspecified; F02.81 - Dementia in other diseases classified elsewhere with behavioral disturbance (2) Aggression: Status: Acute Code(s): R46.89 - Other symptoms and signs involving appearance and behavior (3) Mood disorder: Status: Acute Code(s): F39 - Unspecified mood [affective] disorder Plan The patient is an 86-year-old female, resident of a memory unit of an hotel 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 The patient carries a diagnosis of Alzheimer's dementia and psychosis and she has being more disruptive sings she did not compliant with medication. Plan 1. Gather collateral information. 2. Continue with Risperdal and other antipsychotics. 3. Continue with medication workout. Patient educated on: diagnosis Informed Consent: further education needed Reason for continued inpatient stay Substantial Risk for: harm to self, harm to others, inability to function, rapid decompensation and med/psych decompensation
--- NOTE | 2022-01-27 16:27 | PC.NURSE ---
Pt placed on 1:1 as she has been observed wandering into other pts rooms, and is unsteady at times. The pt is combative (swinging a closed fist; pushing against people) when staff becomes to close to her or attempts to provide hands on assistance. The pt refused a lab draw and an EKG today.
[2022-01-27 20:30] VITALS: BP 136/74; PULSE 65; RESP 16; TEMP 37.1; O2SAT 95
[2022-01-27] MEDS: Divalproex Sodium Sprinkles 125 MG CAP.DR.SPR PO (20:56)
[2022-01-27] MEDS: risperiDONE 0.5 MG TABLET PO (20:56)
[2022-01-28 06:00] VITALS: BP 159/68; PULSE 79; RESP 16; TEMP 36.5; O2SAT 98
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
[2022-01-28] MEDS: Divalproex Sodium Sprinkles 125 MG CAP.DR.SPR PO (14:26)
[2022-01-28] MEDS: risperiDONE 0.5 MG TABLET PO (14:26)
--- NOTE | 2022-01-29 09:37 | HO.PSYCHPN ---
Subjective Subjective Date of Service: 01/29/22 Reason For Visit: Combativeness Subjective Notes: Section 12B Healthcare Proxy: Yes Guardianship: Yes Medical Problems Affecting Mental Status: No Interim History: Pt managing - 1:1 sometimes ok and sometimes provoked- pt was friendly with this provider- reports sleep and eating ok denies aches or pains denies trouble with constipation - thinks it is 1979, can't name president or where we are - Medication Compliance: Yes Side effects from medications: No Attending Groups: Intermittent Review of Systems Acute medical concerns: No slight elevation of wbc- clear urine Medical Review of Systems: unchanged Review of Systems Review of Systems no complaints Mental Status Exam Mental Status Exam Narrative: variable presentation at times Patient Appearance: Well Grooomed and Appropriate Patient Orientation: Person Level of Consciousness: Awake and Appropriate Patient Behavior: Appropriate Mood Description: Calm Affect Description: Calm Patient Cognition Impaired: Yes Ability to Follow Directions: Fair Speech Pattern: Clear Memory Description: Immediate Impaired and Normal for Patient Hallucinations: None Delusions: Not Present Thought Process: Disoriented Judgement: Poor Diagnostics Vital Signs (24Hr): BMI result Body Mass Index 21.4 Labs Results: 01/25/22 19:34 01/27/22 08:56 Labs: Laboratory Results - last 48 hr 01/27/22 01/27/22 08:56 08:56 Sodium 140 Potassium 4.7 Chloride 111 H Carbon Dioxide 18 L Anion Gap 16 BUN 18 H Creatinine 0.73 Estim Creat Clear Calc 49.7 Estimated GFR > 60 Fasting Glucose 95 Calcium 8.8 Total Bilirubin 0.7 AST 29 ALT 21 Alkaline Phosphatase 69 Total Protein 6.3 L Albumin 3.5 Triglycerides 220 Cholesterol 227 LDL Cholesterol, Calc 148 HDL Cholesterol 35 Vitamin B12 Cancelled Folate Cancelled TSH Cancelled EKG EKG: reviewed (qtc 414) Imaging Radiology Impressions: ITS Impressions Head CT 01/25/22 17:57 IMPRESSION: 1. No acute intracranial pathology. 2. Mild cerebral atrophy and moderate chronic small vessel ischemic white matter change. Medications Medications Current Medications Acetaminophen (Acetaminophen 325 Mg Tablet) 650 mg PO Q6H PRN PRN Reason: Headache/Pain Mild Scale (1-3) Last Admin: 01/26/22 22:07 Dose: 650 mg Al Hydroxide/Mg Hydroxide (Magnesium Hydrox/Alum Hydrox 30 Ml Oral.Susp) 30 ml PO Q6H PRN PRN Reason: Heartburn/Nausea Divalproex Sodium (Divalproex Sodium Sprinkles 125 Mg ) 125 mg PO TID [facility] Last Admin: 01/29/22 09:09 Dose: Not Given Hydroxyzine HCl (Hydroxyzine Hcl 25 Mg Tablet) 25 mg PO Q6H PRN PRN Reason: Anxiety Last Admin: 01/26/22 22:07 Dose: 25 mg Magnesium Hydroxide (Milk Of Magnesia 30 Ml Oral.Susp) 30 ml PO DAILY PRN PRN Reason: Constipation Olanzapine (Olanzapine 5 Mg Tablet) 5 mg PO Q6H PRN PRN Reason: agitation Pharmacy Consult (Consult Rx Perform Med Rec) 1 each MISCELLANE ONCE PRN PRN Reason: Consult order Risperidone (Risperidone 0.5 Mg Tablet) 0.5 mg PO TID [facility] Last Admin: 01/29/22 09:09 Dose: Not Given Sertraline HCl (Sertraline Hcl 50 Mg Tablet) 50 mg PO DAILY [facility] Last Admin: 01/29/22 09:09 Dose: Not Given Trazodone HCl (Trazodone Hcl 50 Mg Tablet) 50 mg PO BEDTIME PRN PRN Reason: Insomnia Allergies Allergies Allergy/AdvReac Type Severity Reaction Status Date / Time codeine Allergy Mild Hives Verified 01/25/22 16:47 Sulfa (Sulfonamide Allergy Mild HIVES Verified 01/25/22 16:47 Antibiotics) Assessment & Plan Assessment & Plan (1) Alzheimer's dementia with behavioral disturbance: Status: Acute Code(s): G30.9 - Alzheimer's disease, unspecified; F02.81 - Dementia in other diseases classified elsewhere with behavioral disturbance Assessment and Plan: continue supportive care (2) Aggression: Status: Acute Code(s): R46.89 - Other symptoms and signs involving appearance and behavior Assessment and Plan: on depakote and risperidone (3) Mood disorder: Status: Acute Code(s): F39 - Unspecified mood [affective] disorder Assessment and Plan: on risperidone and depakote and sertraline Plan The patient is an 86-year-old female, 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 The patient carries a diagnosis of Alzheimer's dementia and psychosis and she has being more disruptive and she did not compliant with medication. Plan 1. Gather collateral information. 2. Continue with Risperdal and other antipsychotics. 3. Continue with Medical workout. I spent minutes with the patient and/or on the patient floor today, greater than?50% of which was spent counseling/coordinating care. Patient educated on: other (given support) Reason for contiued inpatient stay Substantial Risk for: rapid decompensation
[2022-01-29 18:00] VITALS: BP 137/60; PULSE 88; RESP 14; TEMP 37.4; O2SAT 96
[2022-01-29] MEDS: Divalproex Sodium Sprinkles 125 MG CAP.DR.SPR PO (20:27)
[2022-01-29] MEDS: risperiDONE 0.5 MG TABLET PO (20:27)
[2022-01-30 07:50] VITALS: BP 161/76; PULSE 67; RESP 16; TEMP 36.1; O2SAT 93
--- NOTE | 2022-01-30 10:25 | P.PNPSI_ITS ---
Subjective Subjective Date of Service: 01/30/22 Reason For Visit: Combativeness Subjective Notes: Section 12B Healthcare Proxy: Yes (? should be invoked if not) Medical Problems Affecting Mental Status: Yes (dementia) Interim History: Yesterday pleasant, today refusing medication and irritable Medication Compliance: Intermittent Side effects from medications: No Attending Groups: Intermittent Review of Systems Acute medical concerns: No Medical Review of Systems: unchanged Mental Status Exam Mental Status Exam Narrative: s/p shower in wander eating a sandwich after her lunch cursing cutting up sandwich into smaller sections Patient Appearance: Appropriate (with help) Patient Orientation: Person Level of Consciousness: Awake Patient Behavior: Impulsive Mood Description: Angry Affect Description: Labile Patient Cognition Impaired: Yes Ability to Follow Directions: Fair Speech Pattern: Clear Thought Process: Confusion Thought Content: positive for Circumstantial Depressive Symptoms: Increased Irritability Abnormal Motor Activity Signs and Symptoms: Agitation Judgement: Poor Diagnostics Vital Signs (24Hr): Vital Signs - 24 hr 01/29/22 18:00 01/30/22 07:50 Temperature 99.4 F 97 F Pulse Rate 88 67 Respiratory Rate 14 16 Blood Pressure 137/60 161/76 H Pulse Oximetry 96 93 Oxygen Delivery Method Room Air BMI result Body Mass Index 21.4 Labs Results: 01/25/22 19:34 01/27/22 08:56 Imaging Radiology Impressions: ITS Impressions Head CT 01/25/22 17:57 IMPRESSION: 1. No acute intracranial pathology. 2. Mild cerebral atrophy and moderate chronic small vessel ischemic white matter change. Medications Medications Current Medications Acetaminophen (Acetaminophen 325 Mg Tablet) 650 mg PO Q6H PRN PRN Reason: Headache/Pain Mild Scale (1-3) Last Admin: 01/26/22 22:07 Dose: 650 mg Al Hydroxide/Mg Hydroxide (Magnesium Hydrox/Alum Hydrox 30 Ml Oral.Susp) 30 ml PO Q6H PRN PRN Reason: Heartburn/Nausea Divalproex Sodium (Divalproex Sodium Sprinkles 125 Mg ) 125 mg PO TID [facility] Last Admin: 01/30/22 09:32 Dose: Not Given Hydroxyzine HCl (Hydroxyzine Hcl 25 Mg Tablet) 25 mg PO Q6H PRN PRN Reason: Anxiety Last Admin: 01/26/22 22:07 Dose: 25 mg Magnesium Hydroxide (Milk Of Magnesia 30 Ml Oral.Susp) 30 ml PO DAILY PRN PRN Reason: Constipation Olanzapine (Olanzapine 5 Mg Tablet) 5 mg PO Q6H PRN PRN Reason: agitation Pharmacy Consult (Consult Rx Perform Med Rec) 1 each MISCELLANE ONCE PRN PRN Reason: Consult order Risperidone (Risperidone 0.5 Mg Tablet) 0.5 mg PO TID [facility] Last Admin: 01/30/22 09:32 Dose: Not Given Sertraline HCl (Sertraline Hcl 50 Mg Tablet) 50 mg PO DAILY [facility] Last Admin: 01/30/22 09:32 Dose: Not Given Trazodone HCl (Trazodone Hcl 50 Mg Tablet) 50 mg PO BEDTIME PRN PRN Reason: Insomnia Allergies Allergies Allergy/AdvReac Type Severity Reaction Status Date / Time codeine Allergy Mild Hives Verified 01/25/22 16:47 Sulfa (Sulfonamide Allergy Mild HIVES Verified 01/25/22 16:47 Antibiotics) Assessment & Plan Assessment & Plan (1) Alzheimer's dementia with behavioral disturbance: Status: Acute Code(s): G30.9 - Alzheimer's disease, unspecified; F02.81 - Dementia in other diseases classified elsewhere with behavioral disturbance Assessment and Plan: continue supportive care (2) Aggression: Status: Acute Code(s): R46.89 - Other symptoms and signs involving appearance and behavior Assessment and Plan: on depakote and risperidone (3) Mood disorder: Status: Acute Code(s): F39 - Unspecified mood [affective] disorder Assessment and Plan: on risperidone and depakote and sertraline Plan The patient is an 86-year-old female, 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 The patient carries a diagnosis of Alzheimer's dementia and psychosis and she has being more disruptive and she did not compliant with medication. Plan 1. Gather collateral information. 2. Continue with Risperdal and other antipsychotics. 3. Continue with Medical workout. I spent minutes with the patient and/or on the patient floor today, greater than?50% of which was spent counseling/coordinating care. Reason for contiued inpatient stay Substantial Risk for: inability to function and rapid decompensation
[2022-01-30 18:00] VITALS: BP 131/61; PULSE 70; RESP 17; TEMP 37.1; O2SAT 97
[2022-01-30] MEDS: OLANZapine 5 MG TABLET PO (20:13)
[2022-01-30] MEDS: Divalproex Sodium Sprinkles 125 MG CAP.DR.SPR PO (20:13)
[2022-01-30] MEDS: risperiDONE 0.5 MG TABLET PO (20:14)
[2022-01-31] MEDS: traZODone HCL 50 MG TABLET PO (00:11)
[2022-01-31] MEDS: hydrOXYzine HCL 25 MG TABLET PO (00:11)
[2022-01-31 06:00] VITALS: PULSE 62; RESP 18; TEMP 36.6; O2SAT 98
[2022-01-31 13:22] LABS: COVID-19 Test Negative (Negative); IDNOW Serial# 55D5AD1C
--- NOTE | 2022-01-31 14:03 | HO.PSYCHPN ---
Subjective Subjective Date of Service: 01/31/22 Reason For Visit: Combativeness Subjective Notes: Conditional Voluntary Interim History: the nursing staff reported the patient has been confused. Over the weekend she was wondering, ext seeking and suspicious. She also present with level mood from happy to extremely angry without any major or stressor. She has been fully compliant with medications. Today we interview the patient and explained her that we need to have a COVID test and she cooperated with encouragement. She looks pleasantly confused but with very labile mood. Mental Status Exam Mental Status Exam Patient Appearance: Appropriate Patient Orientation: Person and Situation Level of Consciousness: Awake Patient Behavior: Guarded, Passive and Suspicious Mood Description: Withdrawn Affect Description: Labile Patient Cognition Impaired: Yes Ability to Follow Directions: Fair Speech Pattern: Clear Hallucinations: None Delusions: Paranoid Ideation Thought Process: Distracted, Slowed Thinking and Confusion Thought Content: positive for [place] and positive for [place] of Content Judgement: Fair Diagnostics Vital Signs (24Hr): Vital Signs - 24 hr 01/30/22 18:00 01/31/22 06:00 Temperature 98.7 F 97.8 F Pulse Rate 70 62 Respiratory Rate 17 18 Blood Pressure 131/61 Pulse Oximetry 97 98 Oxygen Delivery Method Room Air Room Air BMI result Body Mass Index 21.4 Labs Results: 01/25/22 19:34 01/27/22 08:56 Labs: Laboratory Results - last 48 hr 01/31/22 12:35 COVID-19 ([facility]) Negative COVID-19 Clin Com See Note Imaging Radiology Impressions: ITS Impressions Head CT 01/25/22 17:57 IMPRESSION: 1. No acute intracranial pathology. 2. Mild cerebral atrophy and moderate chronic small vessel ischemic white matter change. Medications Medications Current Medications Acetaminophen (Acetaminophen 325 Mg Tablet) 650 mg PO Q6H PRN PRN Reason: Headache/Pain Mild Scale (1-3) Last Admin: 01/26/22 22:07 Dose: 650 mg Al Hydroxide/Mg Hydroxide (Magnesium Hydrox/Alum Hydrox 30 Ml Oral.Susp) 30 ml PO Q6H PRN PRN Reason: Heartburn/Nausea Divalproex Sodium (Divalproex Sodium Sprinkles 125 Mg ) 125 mg PO TID [facility] Last Admin: 01/31/22 09:12 Dose: Not Given Hydroxyzine HCl (Hydroxyzine Hcl 25 Mg Tablet) 25 mg PO Q6H PRN PRN Reason: Anxiety Last Admin: 01/31/22 00:11 Dose: 25 mg Magnesium Hydroxide (Milk Of Magnesia 30 Ml Oral.Susp) 30 ml PO DAILY PRN PRN Reason: Constipation Olanzapine (Olanzapine 5 Mg Tablet) 5 mg PO Q6H PRN PRN Reason: agitation Last Admin: 01/30/22 20:13 Dose: 5 mg Pharmacy Consult (Consult Rx Perform Med Rec) 1 each MISCELLANE ONCE PRN PRN Reason: Consult order Risperidone (Risperidone 0.5 Mg Tablet) 0.5 mg PO TID [facility] Last Admin: 01/31/22 09:12 Dose: Not Given Sertraline HCl (Sertraline Hcl 50 Mg Tablet) 50 mg PO DAILY [facility] Last Admin: 01/31/22 09:12 Dose: Not Given Trazodone HCl (Trazodone Hcl 50 Mg Tablet) 50 mg PO BEDTIME PRN PRN Reason: Insomnia Last Admin: 01/31/22 00:11 Dose: 50 mg Allergies Allergies Allergy/AdvReac Type Severity Reaction Status Date / Time codeine Allergy Mild Hives Verified 01/25/22 16:47 Sulfa (Sulfonamide Allergy Mild HIVES Verified 01/25/22 16:47 Antibiotics) Assessment & Plan Assessment & Plan (1) Alzheimer's dementia with behavioral disturbance: Status: Acute Code(s): G30.9 - Alzheimer's disease, unspecified; F02.81 - Dementia in other diseases classified elsewhere with behavioral disturbance Assessment and Plan: continue supportive care (2) Aggression: Status: Acute Code(s): R46.89 - Other symptoms and signs involving appearance and behavior Assessment and Plan: on depakote and risperidone (3) Mood disorder: Status: Acute Code(s): F39 - Unspecified mood [affective] disorder Assessment and Plan: on risperidone and depakote and sertraline Plan The patient is an 86-year-old female, 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 The patient carries a diagnosis of Alzheimer's dementia and psychosis and she has being more disruptive and she did not compliant with medication. Plan 1. Gather collateral information. 2. Increase Risperdal up to 2 mg a day 0.5 mg p.o. b.i.d. and 1 mg at night. 3. Continue with Medical workout. I spent __20____ minutes with the patient and/or on the patient floor today, greater than?50% of which was spent counseling/coordinating care. Informed Consent: does not understand Reason for contiued inpatient stay Substantial Risk for: inability to function, rapid decompensation and med/psych decompensation
[2022-01-31 18:00] VITALS: BP 130/65; PULSE 81; RESP 18; TEMP 36.7; O2SAT 96
[2022-02-01 06:00] VITALS: BP 141/64; PULSE 68; RESP 16; TEMP 36.9; O2SAT 97
[2022-02-01] MEDS: Divalproex Sodium Sprinkles 125 MG CAP.DR.SPR PO ×3 (08:49→20:06)
[2022-02-01] MEDS: risperiDONE 0.5 MG TABLET PO ×2 (08:49→16:51)
[2022-02-01] MEDS: Sertraline HCL 50 MG TABLET PO (08:49)
--- NOTE | 2022-02-01 14:18 | P.PNPSI_ITS ---
Subjective Subjective Date of Service: 02/01/22 Reason For Visit: Combativeness Subjective Notes: Conditional Voluntary Interim History: The nursing staff reported that the patient has not been compliant with medications, especially Risperdal since Monday. Even though, she was pleasant, confused, redirectable. More agitated in the afternoon, she couldn't find her room. On interview, she was pleasantly confused, unable to follow the interview. Mental Status Exam Mental Status Exam Patient Appearance: Appropriate Patient Orientation: Person Level of Consciousness: Disoriented and Restless Patient Behavior: Guarded and Passive Mood Description: Suspicious Affect Description: Labile Patient Cognition Impaired: Yes Ability to Follow Directions: Good Speech Pattern: Clear Hallucinations: None Delusions: Paranoid Ideation Thought Process: Illogical and Distracted Thought Content: positive for [place] and positive for Circumstantial Judgement: Fair Diagnostics Vital Signs (24Hr): Vital Signs - 24 hr 01/31/22 18:00 02/01/22 06:00 Temperature 98.1 F 98.5 F Pulse Rate 81 68 Respiratory Rate 18 16 Blood Pressure 130/65 141/64 H Pulse Oximetry 96 97 Oxygen Delivery Method Room Air Room Air BMI result Body Mass Index 21.4 Labs Results: 01/25/22 19:34 01/27/22 08:56 Labs: Laboratory Results - last 48 hr 01/31/22 12:35 COVID-19 ([facility]) Negative COVID-19 Clin Com See Note Imaging Radiology Impressions: ITS Impressions Head CT 01/25/22 17:57 IMPRESSION: 1. No acute intracranial pathology. 2. Mild cerebral atrophy and moderate chronic small vessel ischemic white matter change. Medications Medications Current Medications Acetaminophen (Acetaminophen 325 Mg Tablet) 650 mg PO Q6H PRN PRN Reason: Headache/Pain Mild Scale (1-3) Last Admin: 01/26/22 22:07 Dose: 650 mg Al Hydroxide/Mg Hydroxide (Magnesium Hydrox/Alum Hydrox 30 Ml Oral.Susp) 30 ml PO Q6H PRN PRN Reason: Heartburn/Nausea Divalproex Sodium (Divalproex Sodium Sprinkles 125 Mg Gagan.) 125 mg PO TID [facility] Last Admin: 02/01/22 08:49 Dose: 125 mg Hydroxyzine HCl (Hydroxyzine Hcl 25 Mg Tablet) 25 mg PO Q6H PRN PRN Reason: Anxiety Last Admin: 01/31/22 00:11 Dose: 25 mg Magnesium Hydroxide (Milk Of Magnesia 30 Ml Oral.Susp) 30 ml PO DAILY PRN PRN Reason: Constipation Olanzapine (Olanzapine 5 Mg Tablet) 5 mg PO Q6H PRN PRN Reason: agitation Last Admin: 01/30/22 20:13 Dose: 5 mg Pharmacy Consult (Consult Rx Perform Med Rec) 1 each MISCELLANE ONCE PRN PRN Reason: Consult order Risperidone (Risperidone 0.5 Mg Tablet) 0.5 mg PO BID@0800,1500 [facility] Last Admin: 02/01/22 08:49 Dose: 0.5 mg Risperidone (Risperidone 1 Mg Tablet) 1 mg PO BEDTIME [facility] Last Admin: 02/01/22 01:21 Dose: Not Given Sertraline HCl (Sertraline Hcl 50 Mg Tablet) 50 mg PO DAILY [facility] Last Admin: 02/01/22 08:49 Dose: 50 mg Trazodone HCl (Trazodone Hcl 50 Mg Tablet) 50 mg PO BEDTIME PRN PRN Reason: Insomnia Last Admin: 01/31/22 00:11 Dose: 50 mg Allergies Allergies Allergy/AdvReac Type Severity Reaction Status Date / Time codeine Allergy Mild Hives Verified 01/25/22 16:47 Sulfa (Sulfonamide Allergy Mild HIVES Verified 01/25/22 16:47 Antibiotics) Assessment & Plan Assessment & Plan (1) Alzheimer's dementia with behavioral disturbance: Status: Acute Code(s): G30.9 - Alzheimer's disease, unspecified; F02.81 - Dementia in other diseases classified elsewhere with behavioral disturbance Assessment and Plan: continue supportive care (2) Aggression: Status: Acute Code(s): R46.89 - Other symptoms and signs involving appearance and behavior Assessment and Plan: on depakote and risperidone (3) Mood disorder: Status: Acute Code(s): F39 - Unspecified mood [affective] disorder Assessment and Plan: on risperidone and depakote and sertraline Plan The patient is an 86-year-old female, 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 The patient carries a diagnosis of Alzheimer's dementia and psychosis and she has being more disruptive and she did not compliant with medication. Plan 1. Gather collateral information. 2. Increase Risperdal up to 2 mg a day 0.5 mg p.o. b.i.d. and 1 mg at night. Encourage compliance. 3. Continue with Medical workout. I spent __20____ minutes with the patient and/or on the patient floor today, greater than?50% of which was spent counseling/coordinating care. Reason for contiued inpatient stay Substantial Risk for: inability to function, rapid decompensation and med/psych decompensation
[2022-02-01 18:00] VITALS: BP 126/57; PULSE 83; TEMP 37.1; O2SAT 95
[2022-02-01] MEDS: hydrOXYzine HCL 25 MG TABLET PO (20:06)
[2022-02-01] MEDS: traZODone HCL 50 MG TABLET PO (20:06)
[2022-02-01] MEDS: risperiDONE 1 MG TABLET PO (20:06)
[2022-02-02 08:10] VITALS: BP 129/58; PULSE 76; RESP 16; TEMP 36.6; O2SAT 96
[2022-02-02] MEDS: Sertraline HCL 50 MG TABLET PO (08:22)
[2022-02-02] MEDS: Divalproex Sodium Sprinkles 125 MG CAP.DR.SPR PO ×2 (08:22→20:36)
[2022-02-02] MEDS: risperiDONE 0.5 MG TABLET PO (08:22)
--- NOTE | 2022-02-02 13:54 | P.PNPSI_ITS ---
Subjective Subjective Date of Service: 02/02/22 Reason For Visit: Combativeness Subjective Notes: Conditional Voluntary Interim History: The nursing staff reported the patient has been less confused. Her vital signs have been stable. Yesterday she was fully compliant with her medications. We had a family meeting and we explained to the family the patient is severely demented and she is unable to take care of any informed decisions so we will affirm her healthcare proxy. Mental Status Exam Mental Status Exam Patient Appearance: Well Grooomed Patient Orientation: Person and Situation Level of Consciousness: Awake Patient Behavior: Passive Mood Description: Calm Affect Description: Labile Patient Cognition Impaired: Yes Ability to Follow Directions: Good Speech Pattern: Clear Hallucinations: None Thought Process: Illogical and Distracted Thought Content: positive for [place] Judgement: Poor Diagnostics Vital Signs (24Hr): Vital Signs - 24 hr 02/01/22 18:00 02/02/22 08:10 Temperature 98.7 F 98 F Pulse Rate 83 76 Respiratory Rate 16 Blood Pressure 126/57 L 129/58 L Pulse Oximetry 95 96 Oxygen Delivery Method Room Air Room Air BMI result Body Mass Index 21.4 Labs Results: 01/25/22 19:34 01/27/22 08:56 Imaging Radiology Impressions: ITS Impressions Head CT 01/25/22 17:57 IMPRESSION: 1. No acute intracranial pathology. 2. Mild cerebral atrophy and moderate chronic small vessel ischemic white matter change. Medications Medications Current Medications Acetaminophen (Acetaminophen 325 Mg Tablet) 650 mg PO Q6H PRN PRN Reason: Headache/Pain Mild Scale (1-3) Last Admin: 01/26/22 22:07 Dose: 650 mg Al Hydroxide/Mg Hydroxide (Magnesium Hydrox/Alum Hydrox 30 Ml Oral.Susp) 30 ml PO Q6H PRN PRN Reason: Heartburn/Nausea Divalproex Sodium (Divalproex Sodium Sprinkles 125 Mg ) 125 mg PO TID [facility] Last Admin: 02/02/22 08:22 Dose: 125 mg Hydroxyzine HCl (Hydroxyzine Hcl 25 Mg Tablet) 25 mg PO Q6H PRN PRN Reason: Anxiety Last Admin: 02/01/22 20:06 Dose: 25 mg Magnesium Hydroxide (Milk Of Magnesia 30 Ml Oral.Susp) 30 ml PO DAILY PRN PRN Reason: Constipation Olanzapine (Olanzapine 5 Mg Tablet) 5 mg PO Q6H PRN PRN Reason: agitation Last Admin: 01/30/22 20:13 Dose: 5 mg Pharmacy Consult (Consult Rx Perform Med Rec) 1 each MISCELLANE ONCE PRN PRN Reason: Consult order Risperidone (Risperidone 0.5 Mg Tablet) 0.5 mg PO BID@0800,1500 [facility] Last Admin: 02/02/22 08:22 Dose: 0.5 mg Risperidone (Risperidone 1 Mg Tablet) 1 mg PO BEDTIME [facility] Last Admin: 02/01/22 20:06 Dose: 1 mg Sertraline HCl (Sertraline Hcl 50 Mg Tablet) 50 mg PO DAILY [facility] Last Admin: 02/02/22 08:22 Dose: 50 mg Trazodone HCl (Trazodone Hcl 50 Mg Tablet) 50 mg PO BEDTIME PRN PRN Reason: Insomnia Last Admin: 02/01/22 20:06 Dose: 50 mg Allergies Allergies Allergy/AdvReac Type Severity Reaction Status Date / Time codeine Allergy Mild Hives Verified 01/25/22 16:47 Sulfa (Sulfonamide Allergy Mild HIVES Verified 01/25/22 16:47 Antibiotics) Assessment & Plan Assessment & Plan (1) Alzheimer's dementia with behavioral disturbance: Status: Acute Code(s): G30.9 - Alzheimer's disease, unspecified; F02.81 - Dementia in other diseases classified elsewhere with behavioral disturbance Assessment and Plan: continue supportive care (2) Aggression: Status: Acute Code(s): R46.89 - Other symptoms and signs involving appearance and behavior Assessment and Plan: on depakote and risperidone (3) Mood disorder: Status: Acute Code(s): F39 - Unspecified mood [affective] disorder Assessment and Plan: on risperidone and depakote and sertraline Plan The patient is an 86-year-old female, 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 The patient carries a diagnosis of Alzheimer's dementia and psychosis and she has being more disruptive and she did not compliant with medication. Plan 1. Gather collateral information. 2. Increase Risperdal up to 2 mg a day 0.5 mg p.o. b.i.d. and 1 mg at night. Encourage compliance. 3. Continue with Medical workout. I spent __20____ minutes with the patient and/or on the patient floor today, greater than?50% of which was spent counseling/coordinating care. Informed Consent: does not understand Reason for contiued inpatient stay Substantial Risk for: inability to function, rapid decompensation and med/psych decompensation
[2022-02-02 18:00] VITALS: BP 128/60; PULSE 83; TEMP 37.6; O2SAT 96
[2022-02-02] MEDS: risperiDONE 1 MG TABLET PO (20:36)
[2022-02-02] MEDS: hydrOXYzine HCL 25 MG TABLET PO (20:36)
[2022-02-03 06:00] VITALS: BP 156/69; PULSE 74; RESP 14; TEMP 37.1; O2SAT 94
--- NOTE | 2022-02-03 15:02 | HO.PSYCHPN ---
Subjective Subjective Date of Service: 02/03/22 Reason For Visit: Combativeness Subjective Notes: Conditional Voluntary Interim History: The nursing staff reported the patient was compliant with medications last night, but she was not compliant today. She looks pleasant and cooperative but she is very confused. Later in the morning she was seen trying to exit seeking a needed to be redirected, easily angry. On interview she was pleasantly confused. Mental Status Exam Mental Status Exam Patient Appearance: Appropriate Patient Orientation: Person and Situation Level of Consciousness: Disoriented Patient Behavior: Guarded and Suspicious Mood Description: Withdrawn Affect Description: Labile Patient Cognition Impaired: Yes Speech Pattern: Clear Hallucinations: None Delusions: Paranoid Ideation Thought Process: Racing and Distracted Thought Content: positive for [place], positive for Poverty of Content, positive for Disorganized and positive for Evasive Judgement: Fair Diagnostics Vital Signs (24Hr): Vital Signs - 24 hr 02/02/22 18:00 02/03/22 06:00 Temperature 99.7 F 98.8 F Pulse Rate 83 74 Respiratory Rate 14 Blood Pressure 128/60 156/69 H Pulse Oximetry 96 94 Oxygen Delivery Method Room Air Room Air BMI result Body Mass Index 21.4 Labs Results: 01/25/22 19:34 01/27/22 08:56 Imaging Radiology Impressions: ITS Impressions Head CT 01/25/22 17:57 IMPRESSION: 1. No acute intracranial pathology. 2. Mild cerebral atrophy and moderate chronic small vessel ischemic white matter change. Medications Medications Current Medications Acetaminophen (Acetaminophen 325 Mg Tablet) 650 mg PO Q6H PRN PRN Reason: Headache/Pain Mild Scale (1-3) Last Admin: 01/26/22 22:07 Dose: 650 mg Al Hydroxide/Mg Hydroxide (Magnesium Hydrox/Alum Hydrox 30 Ml Oral.Susp) 30 ml PO Q6H PRN PRN Reason: Heartburn/Nausea Divalproex Sodium (Divalproex Sodium Sprinkles 125 Mg ) 125 mg PO TID MELANIA Last Admin: 02/03/22 10:51 Dose: Not Given Hydroxyzine HCl (Hydroxyzine Hcl 25 Mg Tablet) 25 mg PO Q6H PRN PRN Reason: Anxiety Last Admin: 02/02/22 20:36 Dose: 25 mg Magnesium Hydroxide (Milk Of Magnesia 30 Ml Oral.Susp) 30 ml PO DAILY PRN PRN Reason: Constipation Olanzapine (Olanzapine 5 Mg Tablet) 5 mg PO Q6H PRN PRN Reason: agitation Last Admin: 01/30/22 20:13 Dose: 5 mg Pharmacy Consult (Consult Rx Perform Med Rec) 1 each MISCELLANE ONCE PRN PRN Reason: Consult order Risperidone (Risperidone 0.5 Mg Tablet) 0.5 mg PO BID@0800,1500 [facility] Last Admin: 02/03/22 10:51 Dose: Not Given Risperidone (Risperidone 1 Mg Tablet) 1 mg PO BEDTIME [facility] Last Admin: 02/02/22 20:36 Dose: 1 mg Sertraline HCl (Sertraline Hcl 50 Mg Tablet) 50 mg PO DAILY [facility] Last Admin: 02/03/22 10:52 Dose: Not Given Trazodone HCl (Trazodone Hcl 50 Mg Tablet) 50 mg PO BEDTIME PRN PRN Reason: Insomnia Last Admin: 02/01/22 20:06 Dose: 50 mg Allergies Allergies Allergy/AdvReac Type Severity Reaction Status Date / Time codeine Allergy Mild Hives Verified 01/25/22 16:47 Sulfa (Sulfonamide Allergy Mild HIVES Verified 01/25/22 16:47 Antibiotics) Assessment & Plan Assessment & Plan (1) Alzheimer's dementia with behavioral disturbance: Status: Acute Code(s): G30.9 - Alzheimer's disease, unspecified; F02.81 - Dementia in other diseases classified elsewhere with behavioral disturbance Assessment and Plan: continue supportive care (2) Aggression: Status: Acute Code(s): R46.89 - Other symptoms and signs involving appearance and behavior Assessment and Plan: on depakote and risperidone (3) Mood disorder: Status: Acute Code(s): F39 - Unspecified mood [affective] disorder Assessment and Plan: on risperidone and depakote and sertraline Plan The patient is an 86-year-old female, resident of a memory unit of an academic support assistant living facility referred to this hospital for increased agitation and aggression without a clear stressor. The patient carries a diagnosis of Alzheimer's dementia and psychosis and she has being more disruptive and she did not compliant with medication. Plan 1. Gather collateral information. 2. Increase Risperdal up to 2 mg a day 0.5 mg p.o. b.i.d. and 1 mg at night. Encourage compliance. 3. We will try to schedule a family meeting for placement I spent __20____ minutes with the patient and/or on the patient floor today, greater than?50% of which was spent counseling/coordinating care. Reason for contiued inpatient stay Substantial Risk for: inability to function, rapid decompensation and med/psych decompensation
[2022-02-03] MEDS: risperiDONE 0.5 MG TABLET PO (15:16)
[2022-02-03] MEDS: Divalproex Sodium Sprinkles 125 MG CAP.DR.SPR PO ×2 (15:16→22:02)
[2022-02-03] MEDS: hydrOXYzine HCL 25 MG TABLET PO (22:02)
[2022-02-03] MEDS: traZODone HCL 50 MG TABLET PO (22:02)
[2022-02-03] MEDS: risperiDONE 1 MG TABLET PO (22:02)
[2022-02-04 07:00] VITALS: BP 148/70; PULSE 71; RESP 18; TEMP 36.4; O2SAT 97
--- NOTE | 2022-02-04 10:53 | P.PNPSI_ITS ---
Subjective Subjective Date of Service: 02/04/22 Reason For Visit: Combativeness Subjective Notes: Conditional Voluntary (By healthcare proxy) Healthcare Proxy: Yes Interim History: The nursing staff reported the patient had a very unstable mood, she can be sweet and kind and later very angry. Yesterday she was trying to elope of the unit and needed to be redirected, easily redirectable. She has missed some of her medications but in general she slept well last night after p.r.n. medication. On interview the patient looks pleasantly confused. We will try to encourage compliance of her medication Mental Status Exam Mental Status Exam Patient Appearance: Well Grooomed Patient Orientation: Person and Situation Level of Consciousness: Awake Patient Behavior: Guarded Mood Description: Cheerful Affect Description: Labile Patient Cognition Impaired: Yes Ability to Follow Directions: Good Speech Pattern: Clear Hallucinations: None Delusions: Paranoid Ideation and Bizarre Thought Process: Distracted and Slowed Thinking Thought Content: positive for [place] Judgement: Fair Diagnostics Vital Signs (24Hr): Vital Signs - 24 hr 02/04/22 07:00 Temperature 97.6 F Pulse Rate 71 Respiratory Rate 18 Blood Pressure 148/70 H Pulse Oximetry 97 Oxygen Delivery Method Room Air BMI result Body Mass Index 21.4 Labs Results: 01/25/22 19:34 01/27/22 08:56 Imaging Radiology Impressions: ITS Impressions Head CT 01/25/22 17:57 IMPRESSION: 1. No acute intracranial pathology. 2. Mild cerebral atrophy and moderate chronic small vessel ischemic white matter change. Medications Medications Current Medications Acetaminophen (Acetaminophen 325 Mg Tablet) 650 mg PO Q6H PRN PRN Reason: Headache/Pain Mild Scale (1-3) Last Admin: 01/26/22 22:07 Dose: 650 mg Al Hydroxide/Mg Hydroxide (Magnesium Hydrox/Alum Hydrox 30 Ml Oral.Susp) 30 ml PO Q6H PRN PRN Reason: Heartburn/Nausea Divalproex Sodium (Divalproex Sodium Sprinkles 125 Mg ) 250 mg PO TID MELANIA Hydroxyzine HCl (Hydroxyzine Hcl 25 Mg Tablet) 25 mg PO Q6H PRN PRN Reason: Anxiety Last Admin: 02/03/22 22:02 Dose: 25 mg Magnesium Hydroxide (Milk Of Magnesia 30 Ml Oral.Susp) 30 ml PO DAILY PRN PRN Reason: Constipation Olanzapine (Olanzapine 5 Mg Tablet) 5 mg PO Q6H PRN PRN Reason: agitation Last Admin: 01/30/22 20:13 Dose: 5 mg Pharmacy Consult (Consult Rx Perform Med Rec) 1 each MISCELLANE ONCE PRN PRN Reason: Consult order Risperidone (Risperidone 0.5 Mg Tablet) 0.5 mg PO BID@0800,1500 [facility] Last Admin: 02/04/22 09:46 Dose: Not Given Risperidone (Risperidone 1 Mg Tablet) 1 mg PO BEDTIME [facility] Last Admin: 02/03/22 22:02 Dose: 1 mg Sertraline HCl (Sertraline Hcl 50 Mg Tablet) 50 mg PO DAILY [facility] Last Admin: 02/04/22 09:47 Dose: Not Given Trazodone HCl (Trazodone Hcl 50 Mg Tablet) 50 mg PO BEDTIME PRN PRN Reason: Insomnia Last Admin: 02/03/22 22:02 Dose: 50 mg Allergies Allergies Allergy/AdvReac Type Severity Reaction Status Date / Time codeine Allergy Mild Hives Verified 01/25/22 16:47 Sulfa (Sulfonamide Allergy Mild HIVES Verified 01/25/22 16:47 Antibiotics) Assessment & Plan Assessment & Plan (1) Alzheimer's dementia with behavioral disturbance: Status: Acute Code(s): G30.9 - Alzheimer's disease, unspecified; F02.81 - Dementia in other diseases classified elsewhere with behavioral disturbance Assessment and Plan: continue supportive care (2) Aggression: Status: Acute Code(s): R46.89 - Other symptoms and signs involving appearance and behavior Assessment and Plan: on depakote and risperidone (3) Mood disorder: Status: Acute Code(s): F39 - Unspecified mood [affective] disorder Assessment and Plan: on risperidone and depakote and sertraline Plan The patient is an 86-year-old female, resident of a memory unit of an 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 The patient carries a diagnosis of Alzheimer's dementia and psychosis and she has being more disruptive and she did not compliant with medication. Plan 1. Gather collateral information. 2. Increase Risperdal up to 2 mg a day 0.5 mg p.o. b.i.d. and 1 mg at night. Encourage compliance. 3. We will try to schedule a family meeting for placement. 4. Increased Depakote up to 250 mg p.o. t.i.d.. We will get a Depakote level early next week after assuring full compliance. I spent ___20___ minutes with the patient and/or on the patient floor today, greater than?50% of which was spent counseling/coordinating care. Informed Consent: does not understand Reason for contiued inpatient stay Substantial Risk for: inability to function, rapid decompensation and med/psych decompensation
[2022-02-04] MEDS: Divalproex Sodium Sprinkles 125 MG CAP.DR.SPR 250 MG PO (15:02)
[2022-02-04] MEDS: risperiDONE 0.5 MG TABLET PO (15:02)
[2022-02-04 20:51] VITALS: BP 153/67; PULSE 75; RESP 16; TEMP 36.3; O2SAT 99
[2022-02-05 07:00] VITALS: BP 132/80; PULSE 74; RESP 16; TEMP 36.5; O2SAT 94
[2022-02-05] MEDS: risperiDONE 0.5 MG TABLET PO ×2 (08:50→15:44)
[2022-02-05] MEDS: Sertraline HCL 50 MG TABLET PO (08:50)
[2022-02-05] MEDS: Divalproex Sodium Sprinkles 125 MG CAP.DR.SPR 250 MG PO ×3 (08:50→20:25)
--- NOTE | 2022-02-05 13:52 | P.PNPSI_ITS ---
Subjective Subjective Date of Service: 02/05/22 Reason For Visit: Combativeness Subjective Notes: Conditional Voluntary Interim History: Pt has periods of agitation which are related to her confusion. Per nursing, pt slept through the night and is eating well. Today, pt sitting with peers. She reports doing well. She denies SI/HI. Pt not oriented to place, situation, month, date. Pt refuses medications at times as she does not remember medical conditions. Staff has to inform every time as if new diagnosis and encourage her to take meds. Pt denies any pain or discomfort. Medication Compliance: Intermittent Side effects from medications: No Attending Groups: Intermittent Review of Systems Review of Systems no complaints Yes Unobtainable due to mental status Constitutional: Reports no additional constitutional complaints, Denies chills, Denies fever(s) and Denies night sweats Eyes: Reports no additional eye complaints, Denies blurry vision, Denies change in vision, Denies diplopia, Denies eye discharge, Denies loss of vision and Denies eye pain Denies dizziness Cardiovascular: Reports no additional cardiovascular complaints, Denies chest pain, Denies lightheadedness, Denies Loss of Consciousness and Denies dyspnea Respiratory: Reports no additional respiratory complaints and Denies dyspnea Gastrointestinal: Reports no additional gastrointestinal complaints, Denies abdominal pain, Denies melena, Denies hematochezia, Denies change in bowel habits and Denies change in stool character Musculoskeletal: Reports no additional musculoskeletal complaints, Denies numbness and Denies tingling Reports confusion, Denies dizziness, Denies loss of vision, Reports memory loss, Denies numbness and Denies tingling Psychiatric: Reports confusion, Reports irritability and Reports memory loss Endocrine: Reports no additional endocrine complaints Hematologic/Lymphatic: Reports no additional hematologic/lymphatic complaints Allergic/Immunologic: Reports no additional allergic/immunologic complaints Mental Status Exam Mental Status Exam Narrative: Appearance: casually groomed, fair hygiene in NAD Behavior:cooperative. psychomotor:some agitation when redirected due to confusion Speech: mostly clear, regular rate, rhythm, volume, spontaneous Thought process:derailment, disorganized Thought content: enjoying company of peer. Mood: good Affect: calm SI:none HI:none VH/AH:none Delusions:none- pt does confabulate but this is not delusion Insight/judgment:impaired x 2. Memory/cog: alert, not oriented to place, situation, month, severely impaired. Diagnostics Vital Signs (24Hr): Vital Signs - 24 hr 02/05/22 18:00 02/06/22 06:00 Temperature 99.1 F 98.7 F Pulse Rate 75 66 Respiratory Rate 16 17 Blood Pressure 131/62 127/60 Pulse Oximetry 95 95 Oxygen Delivery Method Room Air Room Air BMI result Body Mass Index 21.4 Labs Results: 01/25/22 19:34 01/27/22 08:56 Imaging Radiology Impressions: ITS Impressions Head CT 01/25/22 17:57 IMPRESSION: 1. No acute intracranial pathology. 2. Mild cerebral atrophy and moderate chronic small vessel ischemic white matter change. Medications Medications Current Medications Acetaminophen (Acetaminophen 325 Mg Tablet) 650 mg PO Q6H PRN PRN Reason: Headache/Pain Mild Scale (1-3) Last Admin: 01/26/22 22:07 Dose: 650 mg Al Hydroxide/Mg Hydroxide (Magnesium Hydrox/Alum Hydrox 30 Ml Oral.Susp) 30 ml PO Q6H PRN PRN Reason: Heartburn/Nausea Divalproex Sodium (Divalproex Sodium Sprinkles 125 Mg Gagan.) 250 mg PO TID [facility] Last Admin: 02/06/22 12:39 Dose: 250 mg Hydroxyzine HCl (Hydroxyzine Hcl 25 Mg Tablet) 25 mg PO Q6H PRN PRN Reason: Anxiety Last Admin: 02/03/22 22:02 Dose: 25 mg Magnesium Hydroxide (Milk Of Magnesia 30 Ml Oral.Susp) 30 ml PO DAILY PRN PRN Reason: Constipation Olanzapine (Olanzapine 5 Mg Tablet) 5 mg PO Q6H PRN PRN Reason: agitation Last Admin: 01/30/22 20:13 Dose: 5 mg Pharmacy Consult (Consult Rx Perform Med Rec) 1 each MISCELLANE ONCE PRN PRN Reason: Consult order Risperidone (Risperidone 0.5 Mg Tablet) 0.5 mg PO BID@0800,1500 [facility] Last Admin: 02/06/22 12:40 Dose: 0.5 mg Risperidone (Risperidone 1 Mg Tablet) 1 mg PO BEDTIME [facility] Last Admin: 02/05/22 20:27 Dose: 1 mg Sertraline HCl (Sertraline Hcl 50 Mg Tablet) 50 mg PO DAILY [facility] Last Admin: 02/06/22 12:39 Dose: 50 mg Trazodone HCl (Trazodone Hcl 50 Mg Tablet) 50 mg PO BEDTIME PRN PRN Reason: Insomnia Last Admin: 02/03/22 22:02 Dose: 50 mg Allergies Allergies Allergy/AdvReac Type Severity Reaction Status Date / Time codeine Allergy Mild Hives Verified 01/25/22 16:47 Sulfa (Sulfonamide Allergy Mild HIVES Verified 01/25/22 16:47 Antibiotics) Assessment & Plan Assessment & Plan (1) Alzheimer's dementia with behavioral disturbance: Status: Acute Code(s): G30.9 - Alzheimer's disease, unspecified; F02.81 - Dementia in other diseases classified elsewhere with behavioral disturbance Assessment and Plan: continue supportive care (2) Aggression: Status: Acute Code(s): R46.89 - Other symptoms and signs involving appearance and behavior Assessment and Plan: on depakote and risperidone (3) Mood disorder: Status: Acute Code(s): F39 - Unspecified mood [affective] disorder Assessment and Plan: on risperidone and depakote and sertraline Plan The patient is an 86-year-old female, resident of a memory unit of an marketing administrative assistant living facility referred to this hospital for increased agitation and aggression without a clear stressor. The patient carries a diagnosis of Alzheimer's dementia and psychosis and she has being more disruptive and she did not compliant with medication. Plan 1. Gather collateral information. 2. Increase Risperdal up to 2 mg a day 0.5 mg p.o. b.i.d. and 1 mg at night. Encourage compliance. 3. We will try to schedule a family meeting for placement. 4. Increased Depakote up to 250 mg p.o. t.i.d.. We will get a Depakote level early next week after assuring full compliance. 02/05. continue current medications. Periods of agitation mainly due to confusio n. I spent minutes with the patient and/or on the patient floor today, greater than?50% of which was spent counseling/coordinating care. Reason for contiued inpatient stay Substantial Risk for: inability to function
[2022-02-05 18:00] VITALS: BP 131/62; PULSE 75; RESP 16; TEMP 37.3; O2SAT 95
[2022-02-05] MEDS: risperiDONE 1 MG TABLET PO (20:27)
[2022-02-06 06:00] VITALS: BP 127/60; PULSE 66; RESP 17; TEMP 37.1; O2SAT 95
[2022-02-06] MEDS: Sertraline HCL 50 MG TABLET PO (12:39)
[2022-02-06] MEDS: Divalproex Sodium Sprinkles 125 MG CAP.DR.SPR 250 MG PO ×2 (12:39→20:29)
[2022-02-06] MEDS: risperiDONE 0.5 MG TABLET PO (12:40)
--- NOTE | 2022-02-06 13:57 | HO.PSYCHPN ---
Subjective Subjective Date of Service: 02/06/22 Reason For Visit: Combativeness Subjective Notes: Conditional Voluntary Interim History: Pt was yelling at staff when staff told her she was in someone's else room. Pt insisted this was her room and believed staff was either lying or not informed of her living there. Pt redirected when this senior grant writer went along with confusion, explaining to her that this person was confused and will inform him...pt calmed down. She continued somewhat upset as she thought staff was intruder in her room (again this is not delusional this is confabulation). Pt declines medications as she does not remember her own medical conditions but if she is told doctor just diagnose her with such and such condition and prescribed this medication she is much more willing to take it. Medication Compliance: Yes Side effects from medications: No Attending Groups: Intermittent Review of Systems Review of Systems no complaints Yes Unobtainable due to mental status Constitutional: Reports no additional constitutional complaints, Denies chills, Denies fever(s) and Denies night sweats Eyes: Reports no additional eye complaints, Denies blurry vision, Denies change in vision, Denies diplopia, Denies eye discharge, Denies loss of vision and Denies eye pain Denies dizziness Cardiovascular: Reports no additional cardiovascular complaints, Denies chest pain, Denies lightheadedness, Denies Loss of Consciousness and Denies dyspnea Respiratory: Reports no additional respiratory complaints and Denies dyspnea Gastrointestinal: Reports no additional gastrointestinal complaints, Denies abdominal pain, Denies melena, Denies hematochezia, Denies change in bowel habits and Denies change in stool character Musculoskeletal: Reports no additional musculoskeletal complaints, Denies numbness and Denies tingling Reports confusion, Denies dizziness, Denies loss of vision, Reports memory loss, Denies numbness and Denies tingling Psychiatric: Reports confusion, Reports irritability and Reports memory loss Endocrine: Reports no additional endocrine complaints Hematologic/Lymphatic: Reports no additional hematologic/lymphatic complaints Allergic/Immunologic: Reports no additional allergic/immunologic complaints Mental Status Exam Mental Status Exam Narrative: Appearance: casually groomed, fair hygiene in NAD Behavior:cooperative. psychomotor:some agitation when redirected due to confusion Speech: mostly clear, regular rate, rhythm, volume, spontaneous Thought process:derailment, disorganized Thought content: upset because staff redirect her to a different room, she insists that is her room and thinks she is at her house. Mood: upset Affect: angry and anxious SI:none HI:none VH/AH:none Delusions:none- pt does confabulate but this is not delusion Insight/judgment:impaired x 2. Memory/cog: alert, not oriented to place, situation, month, severely impaired. Diagnostics Vital Signs (24Hr): Vital Signs - 24 hr 02/05/22 18:00 02/06/22 06:00 Temperature 99.1 F 98.7 F Pulse Rate 75 66 Respiratory Rate 16 17 Blood Pressure 131/62 127/60 Pulse Oximetry 95 95 Oxygen Delivery Method Room Air Room Air BMI result Body Mass Index 21.4 Labs Results: 01/25/22 19:34 01/27/22 08:56 Imaging Radiology Impressions: ITS Impressions Head CT 01/25/22 17:57 IMPRESSION: 1. No acute intracranial pathology. 2. Mild cerebral atrophy and moderate chronic small vessel ischemic white matter change. Medications Medications Current Medications Acetaminophen (Acetaminophen 325 Mg Tablet) 650 mg PO Q6H PRN PRN Reason: Headache/Pain Mild Scale (1-3) Last Admin: 01/26/22 22:07 Dose: 650 mg Al Hydroxide/Mg Hydroxide (Magnesium Hydrox/Alum Hydrox 30 Ml Oral.Susp) 30 ml PO Q6H PRN PRN Reason: Heartburn/Nausea Divalproex Sodium (Divalproex Sodium Sprinkles 125 Mg Gagan.) 250 mg PO TID [facility] Last Admin: 02/06/22 12:39 Dose: 250 mg Hydroxyzine HCl (Hydroxyzine Hcl 25 Mg Tablet) 25 mg PO Q6H PRN PRN Reason: Anxiety Last Admin: 02/03/22 22:02 Dose: 25 mg Magnesium Hydroxide (Milk Of Magnesia 30 Ml Oral.Susp) 30 ml PO DAILY PRN PRN Reason: Constipation Olanzapine (Olanzapine 5 Mg Tablet) 5 mg PO Q6H PRN PRN Reason: agitation Last Admin: 01/30/22 20:13 Dose: 5 mg Pharmacy Consult (Consult Rx Perform Med Rec) 1 each MISCELLANE ONCE PRN PRN Reason: Consult order Risperidone (Risperidone 0.5 Mg Tablet) 0.5 mg PO BID@0800,1500 [facility] Last Admin: 02/06/22 12:40 Dose: 0.5 mg Risperidone (Risperidone 1 Mg Tablet) 1 mg PO BEDTIME [facility] Last Admin: 02/05/22 20:27 Dose: 1 mg Sertraline HCl (Sertraline Hcl 50 Mg Tablet) 50 mg PO DAILY [facility] Last Admin: 02/06/22 12:39 Dose: 50 mg Trazodone HCl (Trazodone Hcl 50 Mg Tablet) 50 mg PO BEDTIME PRN PRN Reason: Insomnia Last Admin: 02/03/22 22:02 Dose: 50 mg Allergies Allergies Allergy/AdvReac Type Severity Reaction Status Date / Time codeine Allergy Mild Hives Verified 01/25/22 16:47 Sulfa (Sulfonamide Allergy Mild HIVES Verified 01/25/22 16:47 Antibiotics) Assessment & Plan Assessment & Plan (1) Alzheimer's dementia with behavioral disturbance: Status: Acute Code(s): G30.9 - Alzheimer's disease, unspecified; F02.81 - Dementia in other diseases classified elsewhere with behavioral disturbance Assessment and Plan: continue supportive care (2) Aggression: Status: Acute Code(s): R46.89 - Other symptoms and signs involving appearance and behavior Assessment and Plan: on depakote and risperidone (3) Mood disorder: Status: Acute Code(s): F39 - Unspecified mood [affective] disorder Assessment and Plan: on risperidone and depakote and sertraline Plan The patient is an 86-year-old female, resident of a memory unit of an assistant to the [facility] living facility referred to this hospital for increased agitation and aggression (in setting of increase confusion as we are seeing in the hospital). The patient carries a diagnosis of Alzheimer's dementia and psychosis and she has being more disruptive and she did not compliant with medication. Plan 1. Gather collateral information. 2. Increase Risperdal up to 2 mg a day 0.5 mg p.o. b.i.d. and 1 mg at night. Encourage compliance. 3. We will try to schedule a family meeting for placement. 4. Increased Depakote up to 250 mg p.o. t.i.d.. We will get a Depakote level early next week after assuring full compliance. 02/05. continue current medications. Periods of agitation mainly due to confusion/disorientation (thinks is somewhere else). 02/06 continue current medications. I spent minutes with the patient and/or on the patient floor today, greater than?50% of which was spent counseling/coordinating care. Reason for contiued inpatient stay Substantial Risk for: inability to function
[2022-02-06 18:00] VITALS: BP 151/73; PULSE 77; RESP 18; O2SAT 95
[2022-02-06] MEDS: risperiDONE 1 MG TABLET PO (20:29)
[2022-02-07 08:25] VITALS: BP 120/57; PULSE 75; RESP 18; TEMP 37.1; O2SAT 94
[2022-02-07] MEDS: risperiDONE 0.5 MG TABLET PO ×2 (08:28→14:38)
[2022-02-07] MEDS: Divalproex Sodium Sprinkles 125 MG CAP.DR.SPR 250 MG PO ×3 (08:29→20:40)
[2022-02-07] MEDS: Sertraline HCL 50 MG TABLET PO (08:29)
--- NOTE | 2022-02-07 13:20 | HO.PSYCHPN ---
Subjective Subjective Date of Service: 02/07/22 Reason For Visit: Combativeness Subjective Notes: Conditional Voluntary Interim History: The nursing staff reported the patient has been cooperative and pleasant. She took her medications today in the morning but apparently over the weekend she did not take at night. On interview the patient denies new symptoms she looks pleasantly confused. Mental Status Exam Mental Status Exam Patient Appearance: Appropriate Patient Orientation: Person Level of Consciousness: Awake Patient Behavior: Cooperative Mood Description: Constricted and Anxious Affect Description: Labile Patient Cognition Impaired: Yes Ability to Follow Directions: Good Speech Pattern: Clear Hallucinations: None Delusions: Not Present Thought Process: Illogical and Distracted Thought Content: positive for [place], positive for [place] and positive for Evasive Judgement: Poor Diagnostics Vital Signs (24Hr): Vital Signs - 24 hr 02/06/22 18:00 02/07/22 08:25 Temperature 98.8 F Pulse Rate 77 75 Respiratory Rate 18 18 Blood Pressure 151/73 H 120/57 L Pulse Oximetry 95 94 Oxygen Delivery Method Room Air Room Air BMI result Body Mass Index 21.4 Labs Results: 01/25/22 19:34 01/27/22 08:56 Imaging Radiology Impressions: ITS Impressions Head CT 01/25/22 17:57 IMPRESSION: 1. No acute intracranial pathology. 2. Mild cerebral atrophy and moderate chronic small vessel ischemic white matter change. Medications Medications Current Medications Acetaminophen (Acetaminophen 325 Mg Tablet) 650 mg PO Q6H PRN PRN Reason: Headache/Pain Mild Scale (1-3) Last Admin: 01/26/22 22:07 Dose: 650 mg Al Hydroxide/Mg Hydroxide (Magnesium Hydrox/Alum Hydrox 30 Ml Oral.Susp) 30 ml PO Q6H PRN PRN Reason: Heartburn/Nausea Divalproex Sodium (Divalproex Sodium Sprinkles 125 Mg ) 250 mg PO TID MELANIA Last Admin: 02/07/22 08:29 Dose: 250 mg Hydroxyzine HCl (Hydroxyzine Hcl 25 Mg Tablet) 25 mg PO Q6H PRN PRN Reason: Anxiety Last Admin: 02/03/22 22:02 Dose: 25 mg Magnesium Hydroxide (Milk Of Magnesia 30 Ml Oral.Susp) 30 ml PO DAILY PRN PRN Reason: Constipation Olanzapine (Olanzapine 5 Mg Tablet) 5 mg PO Q6H PRN PRN Reason: agitation Last Admin: 01/30/22 20:13 Dose: 5 mg Pharmacy Consult (Consult Rx Perform Med Rec) 1 each MISCELLANE ONCE PRN PRN Reason: Consult order Risperidone (Risperidone 0.5 Mg Tablet) 0.5 mg PO BID@0800,1500 [facility] Last Admin: 02/07/22 08:28 Dose: 0.5 mg Risperidone (Risperidone 1 Mg Tablet) 1 mg PO BEDTIME [facility] Last Admin: 02/06/22 20:29 Dose: 1 mg Sertraline HCl (Sertraline Hcl 50 Mg Tablet) 50 mg PO DAILY [facility] Last Admin: 02/07/22 08:29 Dose: 50 mg Trazodone HCl (Trazodone Hcl 50 Mg Tablet) 50 mg PO BEDTIME PRN PRN Reason: Insomnia Last Admin: 02/03/22 22:02 Dose: 50 mg Allergies Allergies Allergy/AdvReac Type Severity Reaction Status Date / Time codeine Allergy Mild Hives Verified 01/25/22 16:47 Sulfa (Sulfonamide Allergy Mild HIVES Verified 01/25/22 16:47 Antibiotics) Assessment & Plan Assessment & Plan (1) Alzheimer's dementia with behavioral disturbance: Status: Acute Code(s): G30.9 - Alzheimer's disease, unspecified; F02.81 - Dementia in other diseases classified elsewhere with behavioral disturbance Assessment and Plan: continue supportive care (2) Aggression: Status: Acute Code(s): R46.89 - Other symptoms and signs involving appearance and behavior Assessment and Plan: on depakote and risperidone (3) Mood disorder: Status: Acute Code(s): F39 - Unspecified mood [affective] disorder Assessment and Plan: on risperidone and depakote and sertraline Plan The patient is an 86-year-old female, 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 The patient carries a diagnosis of Alzheimer's dementia and psychosis and she has being more disruptive and she did not compliant with medication. Plan 1. Gather collateral information. 2. Increase Risperdal up to 2 mg a day 0.5 mg p.o. b.i.d. and 1 mg at night. Encourage compliance. 3. We will try to schedule a family meeting for placement. 4. Increased Depakote up to 250 mg p.o. t.i.d.. We will get a Depakote level early next week after assuring full compliance. I spent ___20___ minutes with the patient and/or on the patient floor today, greater than?50% of which was spent counseling/coordinating care. Reason for contiued inpatient stay Substantial Risk for: inability to function, rapid decompensation and med/psych decompensation
[2022-02-07 18:00] VITALS: BP 146/78; PULSE 89; TEMP 36.6; O2SAT 96
[2022-02-07] MEDS: risperiDONE 1 MG TABLET PO (20:40)
[2022-02-07] MEDS: hydrOXYzine HCL 25 MG TABLET PO (20:40)
[2022-02-08 08:00] VITALS: BP 161/70; PULSE 78; RESP 20; TEMP 36.6; O2SAT 97
[2022-02-08] MEDS: Divalproex Sodium Sprinkles 125 MG CAP.DR.SPR 250 MG PO ×3 (08:13→19:36)
[2022-02-08] MEDS: Sertraline HCL 50 MG TABLET PO (08:13)
[2022-02-08] MEDS: risperiDONE 0.5 MG TABLET PO ×2 (08:13→14:44)
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
[2022-02-08 18:00] VITALS: BP 136/60; PULSE 89; RESP 14; TEMP 37.2; O2SAT 96
[2022-02-08] MEDS: risperiDONE 1 MG TABLET PO (19:38)
[2022-02-09 07:30] VITALS: BP 139/64; PULSE 76; RESP 16; TEMP 36.3; O2SAT 94
--- NOTE | 2022-02-09 14:03 | P.PNPSI_ITS ---
Subjective Subjective Date of Service: 02/09/22 Reason For Visit: Combativeness Subjective Notes: Conditional Voluntary Interim History: The nursing staff reported the patient has been confused, easily triggered by other peers and staff. She refused her medications in the morning but she usually needs encouragement for compliance. On interview the patient is confused but easily redirectable. Mental Status Exam Mental Status Exam Patient Appearance: Appropriate Patient Orientation: Person and Situation Level of Consciousness: Awake Patient Behavior: Guarded and Suspicious Mood Description: Withdrawn Affect Description: Constricted Patient Cognition Impaired: Yes Ability to Follow Directions: Good Speech Pattern: Monotone Hallucinations: None Delusions: Paranoid Ideation Perceptual Disturbances: Hallucinations Thought Process: Distracted and Slowed Thinking Thought Content: positive for Poverty of Content Judgement: Fair Diagnostics Vital Signs (24Hr): Vital Signs - 24 hr 02/08/22 18:00 02/09/22 07:30 Temperature 98.9 F 97.3 F Pulse Rate 89 76 Respiratory Rate 14 16 Blood Pressure 136/60 139/64 Pulse Oximetry 96 94 Oxygen Delivery Method Room Air Room Air BMI result Body Mass Index 21.4 Labs Results: 01/25/22 19:34 01/27/22 08:56 Imaging Radiology Impressions: ITS Impressions Head CT 01/25/22 17:57 IMPRESSION: 1. No acute intracranial pathology. 2. Mild cerebral atrophy and moderate chronic small vessel ischemic white matter change. Medications Medications Current Medications Acetaminophen (Acetaminophen 325 Mg Tablet) 650 mg PO Q6H PRN PRN Reason: Headache/Pain Mild Scale (1-3) Last Admin: 01/26/22 22:07 Dose: 650 mg Al Hydroxide/Mg Hydroxide (Magnesium Hydrox/Alum Hydrox 30 Ml Oral.Susp) 30 ml PO Q6H PRN PRN Reason: Heartburn/Nausea Divalproex Sodium (Divalproex Sodium Sprinkles 125 Mg ) 250 mg PO TID MELANIA Last Admin: 02/09/22 09:22 Dose: Not Given Hydroxyzine HCl (Hydroxyzine Hcl 25 Mg Tablet) 25 mg PO Q6H PRN PRN Reason: Anxiety Last Admin: 02/07/22 20:40 Dose: 25 mg Magnesium Hydroxide (Milk Of Magnesia 30 Ml Oral.Susp) 30 ml PO DAILY PRN PRN Reason: Constipation Olanzapine (Olanzapine 5 Mg Tablet) 5 mg PO Q6H PRN PRN Reason: agitation Last Admin: 01/30/22 20:13 Dose: 5 mg Pharmacy Consult (Consult Rx Perform Med Rec) 1 each MISCELLANE ONCE PRN PRN Reason: Consult order Risperidone (Risperidone 0.5 Mg Tablet) 0.5 mg PO BID@0800,1500 [facility] Last Admin: 02/09/22 09:22 Dose: Not Given Risperidone (Risperidone 1 Mg Tablet) 1 mg PO BEDTIME [facility] Last Admin: 02/08/22 19:38 Dose: 1 mg Sertraline HCl (Sertraline Hcl 50 Mg Tablet) 50 mg PO DAILY [facility] Last Admin: 02/08/22 08:13 Dose: 50 mg Trazodone HCl (Trazodone Hcl 50 Mg Tablet) 50 mg PO BEDTIME PRN PRN Reason: Insomnia Last Admin: 02/03/22 22:02 Dose: 50 mg Allergies Allergies Allergy/AdvReac Type Severity Reaction Status Date / Time codeine Allergy Mild Hives Verified 01/25/22 16:47 Sulfa (Sulfonamide Allergy Mild HIVES Verified 01/25/22 16:47 Antibiotics) Assessment & Plan Assessment & Plan (1) Alzheimer's dementia with behavioral disturbance: Status: Acute Code(s): G30.9 - Alzheimer's disease, unspecified; F02.81 - Dementia in other diseases classified elsewhere with behavioral disturbance Assessment and Plan: continue supportive care (2) Aggression: Status: Acute Code(s): R46.89 - Other symptoms and signs involving appearance and behavior Assessment and Plan: on depakote and risperidone (3) Mood disorder: Status: Acute Code(s): F39 - Unspecified mood [affective] disorder Assessment and Plan: on risperidone and depakote and sertraline Plan The patient is an 86-year-old female, 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 The patient carries a diagnosis of Alzheimer's dementia and psychosis and she has being more disruptive and she did not compliant with medication. Plan 1. Gather collateral information. 2. Increase Risperdal up to 2 mg a day 0.5 mg p.o. b.i.d. and 1 mg at night. Encourage compliance. 3. We will try to schedule a family meeting for placement. I spent ___20___ minutes with the patient and/or on the patient floor today, greater than?50% of which was spent counseling/coordinating care. Reason for contiued inpatient stay Substantial Risk for: inability to function, rapid decompensation and med/psych decompensation
[2022-02-09 18:00] VITALS: BP 123/56; PULSE 84; RESP 14; TEMP 37.2; O2SAT 93
[2022-02-09] MEDS: Divalproex Sodium Sprinkles 125 MG CAP.DR.SPR 250 MG PO (19:53)
[2022-02-09] MEDS: risperiDONE 1 MG TABLET PO (19:56)
[2022-02-10 07:00] VITALS: BMI 22.7
[2022-02-10] MEDS: risperiDONE 0.5 MG TABLET PO ×2 (10:06→14:30)
[2022-02-10] MEDS: Divalproex Sodium Sprinkles 125 MG CAP.DR.SPR 250 MG PO ×3 (10:06→20:36)
[2022-02-10] MEDS: Sertraline HCL 50 MG TABLET PO (10:06)
[2022-02-10 10:40] VITALS: BP 150/67; PULSE 78; RESP 16; TEMP 36.8; O2SAT 93
--- NOTE | 2022-02-10 13:22 | HO.PSYCHPN ---
Subjective Subjective Date of Service: 02/10/22 Reason For Visit: Combativeness Subjective Notes: Conditional Voluntary Interim History: The nursing staff reported the patient refuses medications today in the morning but she to call at night. She has been quite redirectable no exit seeking behavior. 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 On interview the patient was pleasantly confused. Mental Status Exam Mental Status Exam Patient Appearance: Well Grooomed Patient Orientation: Person and Situation Level of Consciousness: Awake Patient Behavior: Cooperative Mood Description: Withdrawn Affect Description: Labile Patient Cognition Impaired: Yes Ability to Follow Directions: Fair Speech Pattern: Clear Delusions: Not Present Thought Content: positive for [place] Judgement: Poor Diagnostics Vital Signs (24Hr): Vital Signs - 24 hr 02/09/22 18:00 02/10/22 10:40 Temperature 99 F 98.3 F Pulse Rate 84 78 Respiratory Rate 14 16 Blood Pressure 123/56 L 150/67 H Pulse Oximetry 93 93 Oxygen Delivery Method Room Air Room Air BMI result Body Mass Index 22.7 Labs Results: 01/25/22 19:34 01/27/22 08:56 Imaging Radiology Impressions: ITS Impressions Head CT 01/25/22 17:57 IMPRESSION: 1. No acute intracranial pathology. 2. Mild cerebral atrophy and moderate chronic small vessel ischemic white matter change. Medications Medications Current Medications Acetaminophen (Acetaminophen 325 Mg Tablet) 650 mg PO Q6H PRN PRN Reason: Headache/Pain Mild Scale (1-3) Last Admin: 01/26/22 22:07 Dose: 650 mg Al Hydroxide/Mg Hydroxide (Magnesium Hydrox/Alum Hydrox 30 Ml Oral.Susp) 30 ml PO Q6H PRN PRN Reason: Heartburn/Nausea Divalproex Sodium (Divalproex Sodium Sprinkles 125 Mg ) 250 mg PO TID MELANIA Last Admin: 02/10/22 10:06 Dose: 250 mg Hydroxyzine HCl (Hydroxyzine Hcl 25 Mg Tablet) 25 mg PO Q6H PRN PRN Reason: Anxiety Last Admin: 02/07/22 20:40 Dose: 25 mg Magnesium Hydroxide (Milk Of Magnesia 30 Ml Oral.Susp) 30 ml PO DAILY PRN PRN Reason: Constipation Olanzapine (Olanzapine 5 Mg Tablet) 5 mg PO Q6H PRN PRN Reason: agitation Last Admin: 01/30/22 20:13 Dose: 5 mg Pharmacy Consult (Consult Rx Perform Med Rec) 1 each MISCELLANE ONCE PRN PRN Reason: Consult order Risperidone (Risperidone 0.5 Mg Tablet) 0.5 mg PO BID@0800,1500 [facility] Last Admin: 02/10/22 10:06 Dose: 0.5 mg Risperidone (Risperidone 1 Mg Tablet) 1 mg PO BEDTIME [facility] Last Admin: 02/09/22 19:56 Dose: 1 mg Sertraline HCl (Sertraline Hcl 50 Mg Tablet) 50 mg PO DAILY [facility] Last Admin: 02/10/22 10:06 Dose: 50 mg Trazodone HCl (Trazodone Hcl 50 Mg Tablet) 50 mg PO BEDTIME PRN PRN Reason: Insomnia Last Admin: 02/03/22 22:02 Dose: 50 mg Allergies Allergies Allergy/AdvReac Type Severity Reaction Status Date / Time codeine Allergy Mild Hives Verified 01/25/22 16:47 Sulfa (Sulfonamide Allergy Mild HIVES Verified 01/25/22 16:47 Antibiotics) Assessment & Plan Assessment & Plan (1) Alzheimer's dementia with behavioral disturbance: Status: Acute Code(s): G30.9 - Alzheimer's disease, unspecified; F02.81 - Dementia in other diseases classified elsewhere with behavioral disturbance Assessment and Plan: continue supportive care (2) Aggression: Status: Acute Code(s): R46.89 - Other symptoms and signs involving appearance and behavior Assessment and Plan: on depakote and risperidone (3) Mood disorder: Status: Acute Code(s): F39 - Unspecified mood [affective] disorder Assessment and Plan: on risperidone and depakote and sertraline Plan The patient is an 86-year-old female, 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 The patient carries a diagnosis of Alzheimer's dementia and psychosis and she has being more disruptive and she did not compliant with medication. Plan 1. Gather collateral information. 2. Increase Risperdal up to 2 mg a day 0.5 mg p.o. b.i.d. and 1 mg at night. Encourage compliance. 3. We will try to schedule a family meeting for placement. I spent __20____ minutes with the patient and/or on the patient floor today, greater than?50% of which was spent counseling/coordinating care. Reason for contiued inpatient stay Substantial Risk for: inability to function, rapid decompensation and med/psych decompensation
[2022-02-10 18:00] VITALS: BP 142/59; PULSE 78; TEMP 36.9; O2SAT 95
[2022-02-10] MEDS: risperiDONE 1 MG TABLET PO (20:37)
[2022-02-11 07:30] VITALS: BP 152/66; PULSE 72; RESP 18; TEMP 36.4; O2SAT 96
[2022-02-11] MEDS: risperiDONE 0.5 MG TABLET PO ×2 (10:02→16:49)
[2022-02-11] MEDS: Divalproex Sodium Sprinkles 125 MG CAP.DR.SPR 250 MG PO ×3 (10:02→20:52)
[2022-02-11] MEDS: Sertraline HCL 50 MG TABLET PO (10:02)
--- NOTE | 2022-02-11 11:18 | P.PNPSI_ITS ---
Subjective Subjective Date of Service: 02/11/22 Reason For Visit: Combativeness Subjective Notes: Conditional Voluntary Interim History: The nursing staff reported the patient has been pleasantly confused, cooperative with care and and fully compliant with medication. On interview the patient denies new symptoms she looks confused but easily redirectable. Mental Status Exam Mental Status Exam Patient Appearance: Well Grooomed Patient Orientation: Person Level of Consciousness: Awake Patient Behavior: Guarded and Suspicious Mood Description: Labile Affect Description: Constricted Patient Cognition Impaired: Yes Ability to Follow Directions: Fair Speech Pattern: Clear Hallucinations: None Delusions: Not Present Thought Process: Distracted and Slowed Thinking Thought Content: positive for [place] and positive for Poverty of Content Judgement: Fair Diagnostics Vital Signs (24Hr): Vital Signs - 24 hr 02/10/22 18:00 Temperature 98.5 F Pulse Rate 78 Blood Pressure 142/59 H Pulse Oximetry 95 Oxygen Delivery Method Room Air BMI result Body Mass Index 22.7 Labs Results: 01/25/22 19:34 01/27/22 08:56 Imaging Radiology Impressions: ITS Impressions Head CT 01/25/22 17:57 IMPRESSION: 1. No acute intracranial pathology. 2. Mild cerebral atrophy and moderate chronic small vessel ischemic white matter change. Medications Medications Current Medications Acetaminophen (Acetaminophen 325 Mg Tablet) 650 mg PO Q6H PRN PRN Reason: Headache/Pain Mild Scale (1-3) Last Admin: 01/26/22 22:07 Dose: 650 mg Al Hydroxide/Mg Hydroxide (Magnesium Hydrox/Alum Hydrox 30 Ml Oral.Susp) 30 ml PO Q6H PRN PRN Reason: Heartburn/Nausea Divalproex Sodium (Divalproex Sodium Sprrayshawn 125 Mg ) 250 mg PO TID [facility] Last Admin: 02/11/22 10:02 Dose: 250 mg Hydroxyzine HCl (Hydroxyzine Hcl 25 Mg Tablet) 25 mg PO Q6H PRN PRN Reason: Anxiety Last Admin: 02/07/22 20:40 Dose: 25 mg Magnesium Hydroxide (Milk Of Magnesia 30 Ml Oral.Susp) 30 ml PO DAILY PRN PRN Reason: Constipation Olanzapine (Olanzapine 5 Mg Tablet) 5 mg PO Q6H PRN PRN Reason: agitation Last Admin: 01/30/22 20:13 Dose: 5 mg Pharmacy Consult (Consult Rx Perform Med Rec) 1 each MISCELLANE ONCE PRN PRN Reason: Consult order Risperidone (Risperidone 0.5 Mg Tablet) 0.5 mg PO BID@0800,1500 [facility] Last Admin: 02/11/22 10:02 Dose: 0.5 mg Risperidone (Risperidone 1 Mg Tablet) 1 mg PO BEDTIME [facility] Last Admin: 02/10/22 20:37 Dose: 1 mg Sertraline HCl (Sertraline Hcl 50 Mg Tablet) 50 mg PO DAILY [facility] Last Admin: 02/11/22 10:02 Dose: 50 mg Trazodone HCl (Trazodone Hcl 50 Mg Tablet) 50 mg PO BEDTIME PRN PRN Reason: Insomnia Last Admin: 02/03/22 22:02 Dose: 50 mg Allergies Allergies Allergy/AdvReac Type Severity Reaction Status Date / Time codeine Allergy Mild Hives Verified 01/25/22 16:47 Sulfa (Sulfonamide Allergy Mild HIVES Verified 01/25/22 16:47 Antibiotics) Assessment & Plan Assessment & Plan (1) Alzheimer's dementia with behavioral disturbance: Status: Acute Code(s): G30.9 - Alzheimer's disease, unspecified; F02.81 - Dementia in other diseases classified elsewhere with behavioral disturbance Assessment and Plan: continue supportive care (2) Aggression: Status: Acute Code(s): R46.89 - Other symptoms and signs involving appearance and behavior Assessment and Plan: on depakote and risperidone (3) Mood disorder: Status: Acute Code(s): F39 - Unspecified mood [affective] disorder Assessment and Plan: on risperidone and depakote and sertraline Plan The patient is an 86-year-old female, 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 The patient carries a diagnosis of Alzheimer's dementia and psychosis and she has being more disruptive and she did not compliant with medication. Plan 1. Gather collateral information. 2. Increase Risperdal up to 2 mg a day 0.5 mg p.o. b.i.d. and 1 mg at night. Encourage compliance. 3. We will try to schedule a family meeting for placement. I spent __20____ minutes with the patient and/or on the patient floor today, greater than?50% of which was spent counseling/coordinating care. Reason for contiued inpatient stay Substantial Risk for: inability to function, rapid decompensation and med/psych decompensation
[2022-02-11 18:00] VITALS: BP 156/70; PULSE 78; RESP 20; TEMP 36.6; O2SAT 96
[2022-02-11] MEDS: risperiDONE 1 MG TABLET PO (20:52)
--- NOTE | 2022-02-12 08:48 | P.PNPSI_ITS ---
Subjective Subjective Date of Service: 02/12/22 Reason For Visit: Combativeness Subjective Notes: Conditional Voluntary Interim History: The nursing staff reported that the patient has been compliant with treatment, she is sleeping early in the morning. On interview the patient looks pleasantly confused, easily redirectable. Mental Status Exam Mental Status Exam Patient Appearance: Well Grooomed Patient Orientation: Person and Situation Level of Consciousness: Awake Patient Behavior: Guarded and Passive Mood Description: Calm Affect Description: Constricted Patient Cognition Impaired: Yes Ability to Follow Directions: Good Speech Pattern: Clear Hallucinations: None Delusions: Not Present Thought Process: Distracted and Slowed Thinking Thought Content: positive for Disoriented Judgement: Fair Diagnostics Vital Signs (24Hr): Vital Signs - 24 hr 02/11/22 18:00 Temperature 98 F Pulse Rate 78 Respiratory Rate 20 Blood Pressure 156/70 H Pulse Oximetry 96 Oxygen Delivery Method Room Air BMI result Body Mass Index 22.7 Labs Results: 01/25/22 19:34 01/27/22 08:56 Imaging Radiology Impressions: ITS Impressions Head CT 01/25/22 17:57 IMPRESSION: 1. No acute intracranial pathology. 2. Mild cerebral atrophy and moderate chronic small vessel ischemic white matter change. Medications Medications Current Medications Acetaminophen (Acetaminophen 325 Mg Tablet) 650 mg PO Q6H PRN PRN Reason: Headache/Pain Mild Scale (1-3) Last Admin: 01/26/22 22:07 Dose: 650 mg Al Hydroxide/Mg Hydroxide (Magnesium Hydrox/Alum Hydrox 30 Ml Oral.Susp) 30 ml PO Q6H PRN PRN Reason: Heartburn/Nausea Divalproex Sodium (Divalproex Sodium Sprinkles 125 Mg ) 250 mg PO TID MELANIA Last Admin: 02/11/22 20:52 Dose: 250 mg Hydroxyzine HCl (Hydroxyzine Hcl 25 Mg Tablet) 25 mg PO Q6H PRN PRN Reason: Anxiety Last Admin: 02/07/22 20:40 Dose: 25 mg Magnesium Hydroxide (Milk Of Magnesia 30 Ml Oral.Susp) 30 ml PO DAILY PRN PRN Reason: Constipation Olanzapine (Olanzapine 5 Mg Tablet) 5 mg PO Q6H PRN PRN Reason: agitation Last Admin: 01/30/22 20:13 Dose: 5 mg Pharmacy Consult (Consult Rx Perform Med Rec) 1 each MISCELLANE ONCE PRN PRN Reason: Consult order Risperidone (Risperidone 0.5 Mg Tablet) 0.5 mg PO BID@0800,1500 [facility] Last Admin: 02/11/22 16:49 Dose: 0.5 mg Risperidone (Risperidone 1 Mg Tablet) 1 mg PO BEDTIME [facility] Last Admin: 02/11/22 20:52 Dose: 1 mg Sertraline HCl (Sertraline Hcl 50 Mg Tablet) 50 mg PO DAILY [facility] Last Admin: 02/11/22 10:02 Dose: 50 mg Trazodone HCl (Trazodone Hcl 50 Mg Tablet) 50 mg PO BEDTIME PRN PRN Reason: Insomnia Last Admin: 02/03/22 22:02 Dose: 50 mg Allergies Allergies Allergy/AdvReac Type Severity Reaction Status Date / Time codeine Allergy Mild Hives Verified 01/25/22 16:47 Sulfa (Sulfonamide Allergy Mild HIVES Verified 01/25/22 16:47 Antibiotics) Assessment & Plan Assessment & Plan (1) Alzheimer's dementia with behavioral disturbance: Status: Acute Code(s): G30.9 - Alzheimer's disease, unspecified; F02.81 - Dementia in other diseases classified elsewhere with behavioral disturbance Assessment and Plan: continue supportive care (2) Aggression: Status: Acute Code(s): R46.89 - Other symptoms and signs involving appearance and behavior Assessment and Plan: on depakote and risperidone (3) Mood disorder: Status: Acute Code(s): F39 - Unspecified mood [affective] disorder Assessment and Plan: on risperidone and depakote and sertraline Plan The patient is an 86-year-old female, resident of a memory unit of an personal banking assistant living facility referred to this hospital for increased agitation and aggression (in setting of increase confusion as we are seeing in the hospital). The patient carries a diagnosis of Alzheimer's dementia and psychosis and she has being more disruptive and she did not compliant with medication. Plan 1. Gather collateral information. 2. Increase Risperdal up to 2 mg a day 0.5 mg p.o. b.i.d. and 1 mg at night. Encourage compliance. 3. We will try to schedule a family meeting for placement. I spent _20 minutes with the patient and/or on the patient floor today, greater than?50% of which was spent counseling/coordinating care. Informed Consent: further education needed Reason for contiued inpatient stay Substantial Risk for: inability to function, rapid decompensation and med/psych decompensation
[2022-02-12 09:22] VITALS: BP 125/59; PULSE 77; RESP 16; TEMP 36.3; O2SAT 94
[2022-02-12] MEDS: Sertraline HCL 50 MG TABLET PO (09:23)
[2022-02-12] MEDS: risperiDONE 0.5 MG TABLET PO ×2 (09:23→16:04)
[2022-02-12] MEDS: Divalproex Sodium Sprinkles 125 MG CAP.DR.SPR 250 MG PO ×3 (09:24→20:17)
[2022-02-12] MEDS: Acetaminophen 325 MG TABLET 650 MG PO (09:50)
[2022-02-12 20:00] VITALS: BP 151/64; PULSE 75; RESP 16; TEMP 37.1; O2SAT 94
[2022-02-12] MEDS: risperiDONE 1 MG TABLET PO (20:17)
[2022-02-13 06:00] VITALS: BP 142/65; PULSE 76; RESP 20; TEMP 36.5; O2SAT 98
[2022-02-13] MEDS: Sertraline HCL 50 MG TABLET PO (08:50)
[2022-02-13] MEDS: risperiDONE 0.5 MG TABLET PO ×2 (08:50→16:21)
[2022-02-13] MEDS: Divalproex Sodium Sprinkles 125 MG CAP.DR.SPR 250 MG PO ×3 (08:51→20:53)
--- NOTE | 2022-02-13 09:47 | P.PNPSI_ITS ---
Subjective Subjective Date of Service: 02/13/22 Reason For Visit: Combativeness Subjective Notes: Conditional Voluntary Interim History: The nursing staff reported that the patient is still confused at times, she was sitting in the floor but no evidence of a fall. On interview the patient denies new symptoms she looks pleasantly confused. Mental Status Exam Mental Status Exam Patient Appearance: Well Grooomed Patient Orientation: Person and Situation Level of Consciousness: Awake Patient Behavior: Guarded and Cooperative Mood Description: Withdrawn Affect Description: Labile Patient Cognition Impaired: Yes Ability to Follow Directions: Good Speech Pattern: Clear Hallucinations: None Delusions: Not Present Thought Process: Distracted and Evasive Thought Content: positive for [place] and positive for Poverty of Content Judgement: Fair Diagnostics Vital Signs (24Hr): Vital Signs - 24 hr 02/12/22 20:00 02/13/22 06:00 Temperature 98.7 F 97.7 F Pulse Rate 75 76 Respiratory Rate 16 20 Blood Pressure 151/64 H 142/65 H Pulse Oximetry 94 98 Oxygen Delivery Method Room Air Room Air BMI result Body Mass Index 22.7 Labs Results: 01/25/22 19:34 01/27/22 08:56 Imaging Radiology Impressions: ITS Impressions Head CT 01/25/22 17:57 IMPRESSION: 1. No acute intracranial pathology. 2. Mild cerebral atrophy and moderate chronic small vessel ischemic white matter change. Medications Medications Current Medications Acetaminophen (Acetaminophen 325 Mg Tablet) 650 mg PO Q6H PRN PRN Reason: Headache/Pain Mild Scale (1-3) Last Admin: 02/12/22 09:50 Dose: 650 mg Al Hydroxide/Mg Hydroxide (Magnesium Hydrox/Alum Hydrox 30 Ml Oral.Susp) 30 ml PO Q6H PRN PRN Reason: Heartburn/Nausea Divalproex Sodium (Divalproex Sodium Sprinkles 125 Mg ) 250 mg PO TID MELANIA Last Admin: 02/13/22 08:51 Dose: 250 mg Hydroxyzine HCl (Hydroxyzine Hcl 25 Mg Tablet) 25 mg PO Q6H PRN PRN Reason: Anxiety Last Admin: 02/07/22 20:40 Dose: 25 mg Magnesium Hydroxide (Milk Of Magnesia 30 Ml Oral.Susp) 30 ml PO DAILY PRN PRN Reason: Constipation Olanzapine (Olanzapine 5 Mg Tablet) 5 mg PO Q6H PRN PRN Reason: agitation Last Admin: 01/30/22 20:13 Dose: 5 mg Pharmacy Consult (Consult Rx Perform Med Rec) 1 each MISCELLANE ONCE PRN PRN Reason: Consult order Risperidone (Risperidone 0.5 Mg Tablet) 0.5 mg PO BID@0800,1500 [facility] Last Admin: 02/13/22 08:50 Dose: 0.5 mg Risperidone (Risperidone 1 Mg Tablet) 1 mg PO BEDTIME [facility] Last Admin: 02/12/22 20:17 Dose: 1 mg Sertraline HCl (Sertraline Hcl 50 Mg Tablet) 50 mg PO DAILY [facility] Last Admin: 02/13/22 08:50 Dose: 50 mg Trazodone HCl (Trazodone Hcl 50 Mg Tablet) 50 mg PO BEDTIME PRN PRN Reason: Insomnia Last Admin: 02/03/22 22:02 Dose: 50 mg Allergies Allergies Allergy/AdvReac Type Severity Reaction Status Date / Time codeine Allergy Mild Hives Verified 01/25/22 16:47 Sulfa (Sulfonamide Allergy Mild HIVES Verified 01/25/22 16:47 Antibiotics) Assessment & Plan Assessment & Plan (1) Alzheimer's dementia with behavioral disturbance: Status: Acute Code(s): G30.9 - Alzheimer's disease, unspecified; F02.81 - Dementia in other diseases classified elsewhere with behavioral disturbance Assessment and Plan: continue supportive care (2) Aggression: Status: Acute Code(s): R46.89 - Other symptoms and signs involving appearance and behavior Assessment and Plan: on depakote and risperidone (3) Mood disorder: Status: Acute Code(s): F39 - Unspecified mood [affective] disorder Assessment and Plan: on risperidone and depakote and sertraline Plan The patient is an 86-year-old female, resident of a memory unit of an floral assistant living facility referred to this hospital for increased agitation and aggression (in setting of increase confusion as we are seeing in the hospital). The patient carries a diagnosis of Alzheimer's dementia and psychosis and she has being more disruptive and she did not compliant with medication. Plan 1. Gather collateral information. 2. Increase Risperdal up to 2 mg a day 0.5 mg p.o. b.i.d. and 1 mg at night. Encourage compliance. 3. We will try to schedule a family meeting for placement. I spent ___20___ minutes with the patient and/or on the patient floor today, greater than?50% of which was spent counseling/coordinating care. Reason for contiued inpatient stay Substantial Risk for: inability to function, rapid decompensation and med/psych decompensation
[2022-02-13 18:00] VITALS: BP 160/67; PULSE 81; RESP 16; TEMP 37.1; O2SAT 94
[2022-02-13] MEDS: risperiDONE 1 MG TABLET PO (20:54)
[2022-02-13] MEDS: hydrOXYzine HCL 25 MG TABLET PO (21:22)
[2022-02-14 06:00] VITALS: BP 157/73; PULSE 74; RESP 17; TEMP 36.2; O2SAT 97
--- NOTE | 2022-02-14 11:10 | HO.PSYCHPN ---
Subjective Subjective Date of Service: 02/14/22 Reason For Visit: Combativeness Subjective Notes: Conditional Voluntary Interim History: The nursing staff reported the patient has been pleasant, cooperative interacting fairly well with the patient's and staff. But yesterday, while she was playing cards she went very angry stating that they were HD on her. The nursing staff reported that she slept well compliant with treatment. On interview the patient is pleasantly confused, easily redirectable. Mental Status Exam Mental Status Exam Patient Appearance: Well Grooomed Patient Orientation: Person and Situation Level of Consciousness: Awake Patient Behavior: Guarded Mood Description: Withdrawn Affect Description: Labile Patient Cognition Impaired: Yes Ability to Follow Directions: Good Speech Pattern: Clear Hallucinations: None Delusions: Not Present Thought Process: Distracted and Evasive Thought Content: positive for [place] and positive for Poverty of Content Judgement: Fair Diagnostics Vital Signs (24Hr): Vital Signs - 24 hr 02/13/22 18:00 Temperature 98.7 F Pulse Rate 81 Respiratory Rate 16 Blood Pressure 160/67 H Pulse Oximetry 94 Oxygen Delivery Method Room Air BMI result Body Mass Index 22.7 Labs Results: 01/25/22 19:34 01/27/22 08:56 Imaging Radiology Impressions: ITS Impressions Head CT 01/25/22 17:57 IMPRESSION: 1. No acute intracranial pathology. 2. Mild cerebral atrophy and moderate chronic small vessel ischemic white matter change. Medications Medications Current Medications Acetaminophen (Acetaminophen 325 Mg Tablet) 650 mg PO Q6H PRN PRN Reason: Headache/Pain Mild Scale (1-3) Last Admin: 02/12/22 09:50 Dose: 650 mg Al Hydroxide/Mg Hydroxide (Magnesium Hydrox/Alum Hydrox 30 Ml Oral.Susp) 30 ml PO Q6H PRN PRN Reason: Heartburn/Nausea Divalproex Sodium (Divalproex Sodium Sprinkles 125 Mg ) 250 mg PO TID MELANIA Last Admin: 02/13/22 20:53 Dose: 250 mg Hydroxyzine HCl (Hydroxyzine Hcl 25 Mg Tablet) 25 mg PO Q6H PRN PRN Reason: Anxiety Last Admin: 02/13/22 21:22 Dose: 25 mg Magnesium Hydroxide (Milk Of Magnesia 30 Ml Oral.Susp) 30 ml PO DAILY PRN PRN Reason: Constipation Olanzapine (Olanzapine 5 Mg Tablet) 5 mg PO Q6H PRN PRN Reason: agitation Last Admin: 01/30/22 20:13 Dose: 5 mg Pharmacy Consult (Consult Rx Perform Med Rec) 1 each MISCELLANE ONCE PRN PRN Reason: Consult order Risperidone (Risperidone 0.5 Mg Tablet) 0.5 mg PO BID@0800,1500 [facility] Last Admin: 02/13/22 16:21 Dose: 0.5 mg Risperidone (Risperidone 1 Mg Tablet) 1 mg PO BEDTIME [facility] Last Admin: 02/13/22 20:54 Dose: 1 mg Sertraline HCl (Sertraline Hcl 50 Mg Tablet) 50 mg PO DAILY [facility] Last Admin: 02/13/22 08:50 Dose: 50 mg Trazodone HCl (Trazodone Hcl 50 Mg Tablet) 50 mg PO BEDTIME PRN PRN Reason: Insomnia Last Admin: 02/03/22 22:02 Dose: 50 mg Allergies Allergies Allergy/AdvReac Type Severity Reaction Status Date / Time codeine Allergy Mild Hives Verified 01/25/22 16:47 Sulfa (Sulfonamide Allergy Mild HIVES Verified 01/25/22 16:47 Antibiotics) Assessment & Plan Assessment & Plan (1) Alzheimer's dementia with behavioral disturbance: Status: Acute Code(s): G30.9 - Alzheimer's disease, unspecified; F02.81 - Dementia in other diseases classified elsewhere with behavioral disturbance Assessment and Plan: continue supportive care (2) Aggression: Status: Acute Code(s): R46.89 - Other symptoms and signs involving appearance and behavior Assessment and Plan: on depakote and risperidone (3) Mood disorder: Status: Acute Code(s): F39 - Unspecified mood [affective] disorder Assessment and Plan: on risperidone and depakote and sertraline Plan The patient is an 86-year-old female, resident of a memory unit of an post production assistant living facility referred to this hospital for increased agitation and aggression (in setting of increase confusion as we are seeing in the hospital). The patient carries a diagnosis of Alzheimer's dementia and psychosis and she has being more disruptive and she did not compliant with medication. Plan 1. Gather collateral information. 2. Increase Risperdal up to 2 mg a day 0.5 mg p.o. b.i.d. and 1 mg at night. Encourage compliance. 3. We will try to schedule a family meeting for placement. I spent ___20___ minutes with the patient and/or on the patient floor today, greater than?50% of which was spent counseling/coordinating care. Reason for contiued inpatient stay Substantial Risk for: inability to function, rapid decompensation and med/psych decompensation
[2022-02-14] MEDS: risperiDONE 0.5 MG TABLET PO ×2 (11:21→15:34)
[2022-02-14] MEDS: Divalproex Sodium Sprinkles 125 MG CAP.DR.SPR 250 MG PO ×3 (11:22→20:24)
[2022-02-14] MEDS: Sertraline HCL 50 MG TABLET PO (11:22)
[2022-02-14 18:00] VITALS: BP 118/80; PULSE 75; RESP 16; TEMP 36.8; O2SAT 97
[2022-02-14] MEDS: traZODone HCL 50 MG TABLET PO (20:23)
[2022-02-14] MEDS: risperiDONE 1 MG TABLET PO (20:23)
[2022-02-15 08:55] VITALS: BP 122/58; PULSE 78; RESP 17; TEMP 36.6; O2SAT 94
[2022-02-15] MEDS: Sertraline HCL 50 MG TABLET PO (10:21)
[2022-02-15] MEDS: Divalproex Sodium Sprinkles 125 MG CAP.DR.SPR 250 MG PO ×3 (10:21→19:51)
[2022-02-15] MEDS: risperiDONE 0.5 MG TABLET PO ×2 (10:23→15:28)
--- NOTE | 2022-02-15 13:49 | P.PNPSI_ITS ---
Subjective Subjective Date of Service: 02/15/22 Reason For Visit: Combativeness Subjective Notes: Conditional Voluntary Interim History: The nursing staff reported the patient has been confused but compliant with treatment. She before and the other peer. We will discuss discharge planning with the elementary school social worker and the estate attorney that is following her case. On interview the patient denies new symptoms she looks pleasantly confused. Mental Status Exam Mental Status Exam Patient Appearance: Well Grooomed Patient Orientation: Person and Situation Level of Consciousness: Awake Patient Behavior: Cooperative Mood Description: Calm Affect Description: Labile Patient Cognition Impaired: Yes Ability to Follow Directions: Good Speech Pattern: Clear Hallucinations: None Delusions: Paranoid Ideation Thought Process: Distracted Thought Content: positive for [place] Judgement: Poor Diagnostics Vital Signs (24Hr): Vital Signs - 24 hr 02/14/22 18:00 02/15/22 08:55 Temperature 98.3 F 97.9 F Pulse Rate 75 78 Respiratory Rate 16 17 Blood Pressure 118/80 122/58 L Pulse Oximetry 97 94 Oxygen Delivery Method Room Air Room Air BMI result Body Mass Index 22.7 Labs Results: 01/25/22 19:34 01/27/22 08:56 Imaging Radiology Impressions: ITS Impressions Head CT 01/25/22 17:57 IMPRESSION: 1. No acute intracranial pathology. 2. Mild cerebral atrophy and moderate chronic small vessel ischemic white matter change. Medications Medications Current Medications Acetaminophen (Acetaminophen 325 Mg Tablet) 650 mg PO Q6H PRN PRN Reason: Headache/Pain Mild Scale (1-3) Last Admin: 02/12/22 09:50 Dose: 650 mg Al Hydroxide/Mg Hydroxide (Magnesium Hydrox/Alum Hydrox 30 Ml Oral.Susp) 30 ml PO Q6H PRN PRN Reason: Heartburn/Nausea Divalproex Sodium (Divalproex Sodium Sprinkles 125 Mg ) 250 mg PO TID MELANIA Last Admin: 02/15/22 10:21 Dose: 250 mg Hydroxyzine HCl (Hydroxyzine Hcl 25 Mg Tablet) 25 mg PO Q6H PRN PRN Reason: Anxiety Last Admin: 02/13/22 21:22 Dose: 25 mg Magnesium Hydroxide (Milk Of Magnesia 30 Ml Oral.Susp) 30 ml PO DAILY PRN PRN Reason: Constipation Olanzapine (Olanzapine 5 Mg Tablet) 5 mg PO Q6H PRN PRN Reason: agitation Last Admin: 01/30/22 20:13 Dose: 5 mg Pharmacy Consult (Consult Rx Perform Med Rec) 1 each MISCELLANE ONCE PRN PRN Reason: Consult order Risperidone (Risperidone 0.5 Mg Tablet) 0.5 mg PO BID@0800,1500 [facility] Last Admin: 02/15/22 10:23 Dose: 0.5 mg Risperidone (Risperidone 1 Mg Tablet) 1 mg PO BEDTIME [facility] Last Admin: 02/14/22 20:23 Dose: 1 mg Sertraline HCl (Sertraline Hcl 50 Mg Tablet) 50 mg PO DAILY [facility] Last Admin: 02/15/22 10:21 Dose: 50 mg Trazodone HCl (Trazodone Hcl 50 Mg Tablet) 50 mg PO BEDTIME PRN PRN Reason: Insomnia Last Admin: 02/14/22 20:23 Dose: 50 mg Allergies Allergies Allergy/AdvReac Type Severity Reaction Status Date / Time codeine Allergy Mild Hives Verified 01/25/22 16:47 Sulfa (Sulfonamide Allergy Mild HIVES Verified 01/25/22 16:47 Antibiotics) Assessment & Plan Assessment & Plan (1) Alzheimer's dementia with behavioral disturbance: Status: Acute Code(s): G30.9 - Alzheimer's disease, unspecified; F02.81 - Dementia in other diseases classified elsewhere with behavioral disturbance Assessment and Plan: continue supportive care (2) Aggression: Status: Acute Code(s): R46.89 - Other symptoms and signs involving appearance and behavior Assessment and Plan: on depakote and risperidone (3) Mood disorder: Status: Acute Code(s): F39 - Unspecified mood [affective] disorder Assessment and Plan: on risperidone and depakote and sertraline Plan The patient is an 86-year-old female, resident of a memory unit of an physician's assistant living facility referred to this hospital for increased agitation and aggression (in setting of increase confusion as we are seeing in the hospital). The patient carries a diagnosis of Alzheimer's dementia and psychosis and she has being more disruptive and she did not compliant with medication. Plan 1. Gather collateral information. 2. Increase Risperdal up to 2 mg a day 0.5 mg p.o. b.i.d. and 1 mg at night. Encourage compliance. 3. We will try to schedule a family meeting for placement. I spent __20____ minutes with the patient and/or on the patient floor today, greater than?50% of which was spent counseling/coordinating care. Reason for contiued inpatient stay Substantial Risk for: inability to function, rapid decompensation and med/psych decompensation
[2022-02-15] MEDS: Acetaminophen 325 MG TABLET 650 MG PO (17:41)
[2022-02-15 18:00] VITALS: BP 128/58; PULSE 70; RESP 14; TEMP 37.1; O2SAT 93
[2022-02-15] MEDS: risperiDONE 1 MG TABLET PO (19:52)
[2022-02-16 08:10] VITALS: BP 124/59; PULSE 67; RESP 16; TEMP 36.9; O2SAT 95
[2022-02-16] MEDS: Sertraline HCL 50 MG TABLET PO (08:15)
[2022-02-16] MEDS: risperiDONE 0.5 MG TABLET PO ×2 (08:15→14:52)
[2022-02-16] MEDS: Divalproex Sodium Sprinkles 125 MG CAP.DR.SPR 250 MG PO ×3 (08:15→19:57)
--- NOTE | 2022-02-16 11:50 | HO.PSYCHPN ---
Subjective Subjective Date of Service: 02/16/22 Reason For Visit: Combativeness Subjective Notes: Conditional Voluntary Interim History: The nursing staff reported the patient has been pleasantly confused but easily redirectable. The healthcare social worker reported that she was be referred to several [facility] sent most likely she will be assessed in the next days. On interview the patient denies new symptoms she looks confused but pleasant. She was participating in groups. Mental Status Exam Mental Status Exam Patient Appearance: Well Grooomed Patient Orientation: Person and Situation Level of Consciousness: Awake Patient Behavior: Cooperative Mood Description: Withdrawn Affect Description: Constricted Patient Cognition Impaired: Yes Ability to Follow Directions: Good Speech Pattern: Clear Hallucinations: None Delusions: Not Present Thought Process: Distracted and Slowed Thinking Thought Content: positive for Disoriented and positive for [place] Judgement: Fair Diagnostics Vital Signs (24Hr): Vital Signs - 24 hr 02/15/22 18:00 02/16/22 08:10 Temperature 98.8 F 98.5 F Pulse Rate 70 67 Respiratory Rate 14 16 Blood Pressure 128/58 L 124/59 L Pulse Oximetry 93 95 Oxygen Delivery Method Room Air Room Air BMI result Body Mass Index 22.7 Labs Results: 01/25/22 19:34 01/27/22 08:56 Imaging Radiology Impressions: ITS Impressions Head CT 01/25/22 17:57 IMPRESSION: 1. No acute intracranial pathology. 2. Mild cerebral atrophy and moderate chronic small vessel ischemic white matter change. Medications Medications Current Medications Acetaminophen (Acetaminophen 325 Mg Tablet) 650 mg PO Q6H PRN PRN Reason: Headache/Pain Mild Scale (1-3) Last Admin: 02/15/22 17:41 Dose: 650 mg Al Hydroxide/Mg Hydroxide (Magnesium Hydrox/Alum Hydrox 30 Ml Oral.Susp) 30 ml PO Q6H PRN PRN Reason: Heartburn/Nausea Divalproex Sodium (Divalproex Sodium Sprinkles 125 Mg ) 250 mg PO TID MELANIA Last Admin: 02/16/22 08:15 Dose: 250 mg Hydroxyzine HCl (Hydroxyzine Hcl 25 Mg Tablet) 25 mg PO Q6H PRN PRN Reason: Anxiety Last Admin: 02/13/22 21:22 Dose: 25 mg Magnesium Hydroxide (Milk Of Magnesia 30 Ml Oral.Susp) 30 ml PO DAILY PRN PRN Reason: Constipation Olanzapine (Olanzapine 5 Mg Tablet) 5 mg PO Q6H PRN PRN Reason: agitation Last Admin: 01/30/22 20:13 Dose: 5 mg Pharmacy Consult (Consult Rx Perform Med Rec) 1 each MISCELLANE ONCE PRN PRN Reason: Consult order Risperidone (Risperidone 0.5 Mg Tablet) 0.5 mg PO BID@0800,1500 [facility] Last Admin: 02/16/22 08:15 Dose: 0.5 mg Risperidone (Risperidone 1 Mg Tablet) 1 mg PO BEDTIME [facility] Last Admin: 02/15/22 19:52 Dose: 1 mg Sertraline HCl (Sertraline Hcl 50 Mg Tablet) 50 mg PO DAILY [facility] Last Admin: 02/16/22 08:15 Dose: 50 mg Trazodone HCl (Trazodone Hcl 50 Mg Tablet) 50 mg PO BEDTIME PRN PRN Reason: Insomnia Last Admin: 02/14/22 20:23 Dose: 50 mg Allergies Allergies Allergy/AdvReac Type Severity Reaction Status Date / Time codeine Allergy Mild Hives Verified 01/25/22 16:47 Sulfa (Sulfonamide Allergy Mild HIVES Verified 01/25/22 16:47 Antibiotics) Assessment & Plan Assessment & Plan (1) Alzheimer's dementia with behavioral disturbance: Status: Acute Code(s): G30.9 - Alzheimer's disease, unspecified; F02.81 - Dementia in other diseases classified elsewhere with behavioral disturbance Assessment and Plan: continue supportive care (2) Aggression: Status: Acute Code(s): R46.89 - Other symptoms and signs involving appearance and behavior Assessment and Plan: on depakote and risperidone (3) Mood disorder: Status: Acute Code(s): F39 - Unspecified mood [affective] disorder Assessment and Plan: on risperidone and depakote and sertraline Plan The patient is an 86-year-old female, resident of a memory unit of an therapy assistant living facility referred to this hospital for increased agitation and aggression (in setting of increase confusion as we are seeing in the hospital). The patient carries a diagnosis of Alzheimer's dementia and psychosis and she has being more disruptive and she did not compliant with medication. Plan 1. Gather collateral information. 2. Increase Risperdal up to 2 mg a day 0.5 mg p.o. b.i.d. and 1 mg at night. Encourage compliance. 3. We will try to schedule a family meeting for placement. I spent __20____ minutes with the patient and/or on the patient floor today, greater than?50% of which was spent counseling/coordinating care. Reason for contiued inpatient stay Substantial Risk for: inability to function, rapid decompensation and med/psych decompensation
[2022-02-16 18:00] VITALS: BP 135/61; PULSE 69; RESP 18; TEMP 36.8; O2SAT 91
[2022-02-16] MEDS: risperiDONE 1 MG TABLET PO (19:57)
[2022-02-17 06:00] VITALS: BP 135/63; PULSE 75; RESP 16; TEMP 36.6; O2SAT 95
[2022-02-17] MEDS: Divalproex Sodium Sprinkles 125 MG CAP.DR.SPR 250 MG PO ×3 (09:30→20:28)
[2022-02-17] MEDS: risperiDONE 0.5 MG TABLET PO ×2 (09:30→15:03)
[2022-02-17] MEDS: Sertraline HCL 50 MG TABLET PO (09:30)
[2022-02-17] MEDS: Acetaminophen 325 MG TABLET 650 MG PO (10:40)
[2022-02-17 10:45] LABS: COVID-19 Test Negative (Negative)
--- NOTE | 2022-02-17 10:54 | HO.PSYCHPN ---
Subjective Subjective Date of Service: 02/17/22 Reason For Visit: Combativeness Subjective Notes: Conditional Voluntary Interim History: The nursing staff reported the patient has been pleasant, confused but cooperative, she complained of sore throat so we will do a COVID test today. On interview the patient is pleasantly confused. No new symptoms Mental Status Exam Mental Status Exam Patient Appearance: Well Grooomed Patient Orientation: Person and Situation Level of Consciousness: Awake Patient Behavior: Cooperative Mood Description: Calm Affect Description: Constricted Patient Cognition Impaired: Yes Ability to Follow Directions: Fair Speech Pattern: Impoverished Hallucinations: None Delusions: Not Present Thought Process: Distracted Thought Content: positive for [place] and positive for Loose Associations Judgement: Fair Diagnostics Vital Signs (24Hr): Vital Signs - 24 hr 02/16/22 18:00 Temperature 98.2 F Pulse Rate 69 Respiratory Rate 18 Blood Pressure 135/61 Pulse Oximetry 91 L Oxygen Delivery Method Room Air BMI result Body Mass Index 22.7 Labs Results: 01/25/22 19:34 01/27/22 08:56 Labs: Laboratory Results - last 48 hr 02/17/22 10:23 COVID-19 (KULDIP) Negative COVID-19 Clin Com See Note Imaging Radiology Impressions: ITS Impressions Head CT 01/25/22 17:57 IMPRESSION: 1. No acute intracranial pathology. 2. Mild cerebral atrophy and moderate chronic small vessel ischemic white matter change. Medications Medications Current Medications Acetaminophen (Acetaminophen 325 Mg Tablet) 650 mg PO Q6H PRN PRN Reason: Headache/Pain Mild Scale (1-3) Last Admin: 02/17/22 10:40 Dose: 650 mg Al Hydroxide/Mg Hydroxide (Magnesium Hydrox/Alum Hydrox 30 Ml Oral.Susp) 30 ml PO Q6H PRN PRN Reason: Heartburn/Nausea Divalproex Sodium (Divalproex Sodium Sprinkles 125 Mg ) 250 mg PO TID MELANIA Last Admin: 02/17/22 09:30 Dose: 250 mg Hydroxyzine HCl (Hydroxyzine Hcl 25 Mg Tablet) 25 mg PO Q6H PRN PRN Reason: Anxiety Last Admin: 02/13/22 21:22 Dose: 25 mg Magnesium Hydroxide (Milk Of Magnesia 30 Ml Oral.Susp) 30 ml PO DAILY PRN PRN Reason: Constipation Olanzapine (Olanzapine 5 Mg Tablet) 5 mg PO Q6H PRN PRN Reason: agitation Last Admin: 01/30/22 20:13 Dose: 5 mg Pharmacy Consult (Consult Rx Perform Med Rec) 1 each MISCELLANE ONCE PRN PRN Reason: Consult order Risperidone (Risperidone 0.5 Mg Tablet) 0.5 mg PO BID@0800,1500 [facility] Last Admin: 02/17/22 09:30 Dose: 0.5 mg Risperidone (Risperidone 1 Mg Tablet) 1 mg PO BEDTIME [facility] Last Admin: 02/16/22 19:57 Dose: 1 mg Sertraline HCl (Sertraline Hcl 50 Mg Tablet) 50 mg PO DAILY [facility] Last Admin: 02/17/22 09:30 Dose: 50 mg Trazodone HCl (Trazodone Hcl 50 Mg Tablet) 50 mg PO BEDTIME PRN PRN Reason: Insomnia Last Admin: 02/14/22 20:23 Dose: 50 mg Allergies Allergies Allergy/AdvReac Type Severity Reaction Status Date / Time codeine Allergy Mild Hives Verified 01/25/22 16:47 Sulfa (Sulfonamide Allergy Mild HIVES Verified 01/25/22 16:47 Antibiotics) Assessment & Plan Assessment & Plan (1) Alzheimer's dementia with behavioral disturbance: Status: Acute Code(s): G30.9 - Alzheimer's disease, unspecified; F02.81 - Dementia in other diseases classified elsewhere with behavioral disturbance Assessment and Plan: continue supportive care (2) Aggression: Status: Acute Code(s): R46.89 - Other symptoms and signs involving appearance and behavior Assessment and Plan: on depakote and risperidone (3) Mood disorder: Status: Acute Code(s): F39 - Unspecified mood [affective] disorder Assessment and Plan: on risperidone and depakote and sertraline Plan The patient is an 86-year-old female, resident of a memory unit of an 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 The patient carries a diagnosis of Alzheimer's dementia and psychosis and she has being more disruptive and she did not compliant with medication. Plan 1. Gather collateral information. 2. Increase Risperdal up to 2 mg a day 0.5 mg p.o. b.i.d. and 1 mg at night. Encourage compliance. 3. We will try to schedule a family meeting for placement. I spent ___20___ minutes with the patient and/or on the patient floor today, greater than?50% of which was spent counseling/coordinating care. Reason for contiued inpatient stay Substantial Risk for: inability to function, rapid decompensation and med/psych decompensation
[2022-02-17 13:38] VITALS: BMI 23.1
[2022-02-17 18:00] VITALS: BP 124/59; PULSE 79; RESP 17; TEMP 36.6; O2SAT 97
[2022-02-17] MEDS: risperiDONE 1 MG TABLET PO (20:29)
[2022-02-18 08:14] VITALS: BP 146/63; PULSE 83; RESP 16; TEMP 36.8; O2SAT 95
[2022-02-18] MEDS: Sertraline HCL 50 MG TABLET PO (08:16)
[2022-02-18] MEDS: risperiDONE 0.5 MG TABLET PO (08:16)
[2022-02-18] MEDS: Divalproex Sodium Sprinkles 125 MG CAP.DR.SPR 250 MG PO (08:16)
--- NOTE | 2022-02-18 08:22 | PM.PSYDC ---
DS: Providers Provider Date of Service: 02/18/22 Date of admission: 01/26/22 16:33 Date of discharge: 02/18/22 Primary care physician: Amy Barber MD Attending physician on discharge: Ino Crouch DS: Diagnosis Discharge Diagnosis (1) Alzheimer's dementia with behavioral disturbance: Status: Acute (2) Aggression: Status: Acute (3) Mood disorder: Status: Acute DS: Medications Discharge Medications Home Medications: Home Medications Medication Instructions Recorded Confirmed sertraline 50 mg tablet 50 mg PO DAILY 01/26/22 01/26/22 trazodone 50 mg tablet 25 mg PO BID 01/26/22 01/26/22 Mental Status Exam Mental Status Exam Patient Appearance: Well Grooomed Patient Orientation: Person and Situation Level of Consciousness: Awake Patient Behavior: Appropriate and Guarded Mood Description: Withdrawn Affect Description: Labile Patient Cognition Impaired: Yes Ability to Follow Directions: Good Speech Pattern: Clear Hallucinations: None Delusions: Not Present Thought Process: Distracted, Slowed Thinking and Confusion Thought Content: positive for [place] and positive for Poverty of Content Judgement: Fair Data Data Completed and Pending Completed studies during hospitalization [Text1]: 02/17/22 10:23 COVID-19 (KULDIP) Negative COVID-19 Clin Com See Note Imaging Diagnostic Imaging Impressions Head CT 01/25/22 17:57 IMPRESSION: 1. No acute intracranial pathology. 2. Mild cerebral atrophy and moderate chronic small vessel ischemic white matter change. DS: Summary Hospital Course Hospital Course: The patient was transferred from her regular assisting living facility memory unit for increased aggression and confusion. Please see the HPI of the admission and for further details. On admission the patient was started on Depakote to target her mood lability and later on added Risperdal titrated up 2.5 p.o. b.i.d. and 1 mg p.o. q.h.s. to target disorganized behavior with very groove male. The patient has been chronically impaired with poor short-term memory and confusion but easily redirectable. The patient was able to participate in groups and she needed prompts and cues for ADL's. Since there were no safety concerns discharge planning was discussed Time spent discussing smoking cessation with patient: 3 to 10 minutes Status at Discharge Cognitive/behavioral status at discharge: Impaired at baseline Functional status at discharge: independent ambulation Overall status at discharge: patient is back to baseline Time Spent with Patient Time attestation: Total time spent providing and/or coordinating discharge services: Time spent: Less than 30 minutes Discharge Plan Discharge Patient Disposition: [facility] Discharge Diagnosis: Delirium Dementia Alzheimer type Referrals: Amy Barber MD [Primary Care Provider] - 1 Week Discharge Medications: New trazodone 50 mg Tablet 50 mg PO BEDTIME PRN (Reason: Insomnia) 30 Days Qty: 30 0RF divalproex 125 mg Capsule, Delayed Rel Sprinkle 250 mg PO TID 30 Days Qty: 180 0RF risperidone 1 mg Tablet 1 mg PO BEDTIME 30 Days Qty: 30 0RF risperidone 0.5 mg Tablet 0.5 mg PO BID@0800,1500 30 Days Qty: 60 0RF Continued sertraline 50 mg tablet 50 mg PO DAILY 30 Days Qty: 30 0RF Discontinued trazodone 50 mg tablet 25 mg PO BID Discharge Orders: Discharge Order (Routine); Ordered 02/18/22 Ordered By: Ino Crouch Diet: Advance to usual diet Activity on Discharge: As tolerated Stand Alone Forms: Patient Portal Discharge page Care Plan Goals: Care plan goals achieved in this admission Health Concerns: Continue treatment as an outpatient Plan of Treatment: Continue medication management as an outpatient Assessment: Elderly female with a long history of dementia admitted for exacerbation of aggression in the context of UTI. Currently stable ready to be discharged to the assisted living facility
== END 2022-02-18 11:55 | DRG 885 ==
LOC: HO.ED 01-26 16:44 → HO.PGERI 01-26 18:19
PROVIDERS: Physician Assistant Medical; Admitting Provider Social Worker; Emergency Provider Emergency Medicine; PCP Internal Medicine; Visit Provider Psychiatry & Neurology Psychiatry
DX: F39 Unspecified mood [affective] disorder (principal); F02.81 Dementia in other diseases classified elsewhere, unspecified severity, with behavioral disturbance; N39.0 Urinary tract infection, site not specified; G30.9 Alzheimer's disease, unspecified; Z20.822 Contact with and (suspected) exposure to COVID-19; Z87.891 Personal history of nicotine dependence; Z88.2 Allergy status to sulfonamides; Z88.5 Allergy status to narcotic agent; Z79.51 Long term (current) use of inhaled steroids; Z79.890 Hormone replacement therapy; Z79.899 Other long term (current) drug therapy
CPT/HCPCS: 36415; 70450; 80053; 80061; 81001; 83735; 85025; 87502; 87635; 93005; 97161; 99285

== ENCOUNTER 2022-02-19 20:01 | Inpatient (IN) | payer MEDICARE, SELFPAY ==
[2022-02-19 21:56] VITALS: BP 122/78; PULSE 81; RESP 18; TEMP 36.9; O2SAT 96; BMI 25.4
[2022-02-19] MEDS: risperiDONE 1 MG TABLET PO (22:35)
[2022-02-19] MEDS: traZODone HCL 50 MG TABLET PO (22:35)
[2022-02-20 06:00] VITALS: BP 126/56; PULSE 71; RESP 16; TEMP 36.6; O2SAT 95
--- NOTE | 2022-02-20 06:11 | PC.ADMIT ---
Pt. admitted to the geriatric BH unit at 2123 on 02/19/2022 from [facility]. Pt. has a diagnosis of dementia. Pt. admitted to from 01/26/2022 to 02/18/2022. Pt. was discharged and when she arrived at the [facility] locked memory unit at the [facility] she was turned away due to combativeness. The pt. was brought to [facility]. She was admitted to a medical unit. Doctor to doctor report and nurse to nurse report done prior to admission. Pt. is a Section 12B due to memory impairment. Pt. was alert to person only. She was pleasant, calm and cooperative, but unable to recall pertinent information regarding medical history. Pt. unable to sign legals. Med reconciliation completed with discharge medication list from [facility]. Pt. does not express SI/HI/AH/VH. She was not combative, agitated or aggressive. Mood was stable upon admission. Pt. took HS medications. She was social with two female peers and staff. Previous admission indicates more than one fall in the last six months. Pt. ambulated in the hallway holding a staff member's arm for support. Gait appears steady. Pt. is incontinent of urine at times. She is using a brief. VS: 98.4, 122/78, 81, 96% on RA, 18. Hospitalist notified of admission.
[2022-02-20 07:01] LABS: MANUAL DIFF FLAG NO
[2022-02-20 07:04] LABS: Basophils Absolute Auto 0.1 X10*3/uL (0.0-0.2); Basophils Percent Auto 0.7 % (0-2); Eosinophils Absolute Auto 0.3 X10*3/uL (0.0-0.4); Eosinophils Percent Auto 3.5 % (0-4); Hematocrit 35.7 % (37.0-47.0); Hemoglobin 12.2 g/dl (12.0-16.0); Imm Gran Abs Auto 0.15 X10*3/uL (0.00-0.03); Imm Gran Pct Auto 1.6 % (0.0-0.4); Lymphocytes Absolute Auto 2.2 X10*3/uL (1.2-4.9); Lymphocytes Percent Auto 24.5 % (20-40); Mean Corpuscular HGB Conc 34.2 g/dl (31.0-35.0); Mean Corpuscular Hemoglobin 32.6 pg (27.0-33.0); Mean Corpuscular Volume 95.5 fL (80.0-98.0); Mean Platelet Volume 10.7 fL (9.4-12.3); Monocytes Absolute Auto 1.1 X10*3/uL (0.1-1.2); Monocytes Percent Auto 12.4 % (2-11); Neutrophils Absolute Auto 5.3 x10*3/uL (2.0-8.3); Neutrophils Percent Auto 57.3 % (45-73); Platelet Count 219 X10*3/uL (160-400); Red Blood Count 3.74 X10*6/uL (4.20-5.50); Red Cell Distribution Width 12.6 % (11.0-16.0); White Blood Count 9.2 X10*3/uL (4.8-10.8)
[2022-02-20 07:16] LABS: Estimated Average Glucose 108 mg/dL; Hemoglobin A1c % 5.4 %
[2022-02-20 07:25] LABS: Alanine Aminotransferase 15 U/L (0-31); Albumin Level 3.2 g/dL (3.5-5.0); Alkaline Phosphatase 62 U/L (39-117); Anion Gap 14 (12-20); Aspartate Amino Transferase 19 U/L (5-31); Bilirubin Total 0.4 mg/dL (0.0-1.0); Blood Urea Nitrogen 14 mg/dL (9-16); Calcium 8.4 mg/dL (8.4-10.2); Carbon Dioxide 23 mmol/L (22-29); Chloride 104 mmol/L (96-108); Cholesterol 234 mg/dL; Estimated Glomerular Filt Rate > 60; Glucose Fasting 88 mg/dL (60-99); HDL Cholesterol 28 mg/dL; LDL Cholesterol Calculated 143 mg/dl; Magnesium 2.1 mg/dL (1.6-2.6); Potassium 4.1 mmol/L (3.3-5.1); Sodium 137 mmol/L (135-145); Total Protein 5.8 g/dL (6.5-8.0); Triglycerides 319 mg/dL
[2022-02-20 07:46] LABS: Free T4 (Free Thyroxine) 0.77 ng/dL (0.71-1.85); Thyroid Stimulating Hormone 6.56 uIU/mL (0.32-4.0)
--- NOTE | 2022-02-20 13:09 | HO.PSYADMNOT ---
[facility] Date of Service: 02/20/22 Chief Complaint: dementia Sources of Information: patient interviewed, chart reviewed and crisis/core team assessment reviewed Additional Sources of Information: Transfer information from [facility] Subjective Notes: Section 12B Medical Problems Affecting Mental Status: No Narrative: As per appeals coordinator note 02/19: Pt. admitted to the geriatric BH unit at 2123 on 02/19/2022 from [facility]. Pt. has a diagnosis of dementia. Pt. admitted to from 01/26/2022 to 02/18/2022. Pt. was discharged and when she arrived at the [facility] locked memory unit at [facility] she was turned away due to combativeness. The pt. was brought to [facility]. She was admitted to a medical unit. Doctor to doctor report and nurse to nurse report done prior to admission. Pt. is a Section 12B due to memory impairment. Pt. was alert to person only. She was pleasant, calm and cooperative, but unable to recall pertinent information regarding medical history. Pt. unable to sign legals. Med reconciliation completed with discharge medication list from [facility]. Pt. does not express SI/HI/AH/VH. She was not combative, agitated or aggressive. Mood was stable upon admission. Pt. took HS medications. She was social with two female peers and staff. Previous admission indicates more than one fall in the last six months. Pt. ambulated in the hallway holding a staff member's arm for support. Gait appears steady. Pt. is incontinent of urine at times. She is using a brief. VS: 98.4, 122/78, 81, 96% on RA, 18. Hospitalist notified of admission. [facility]. Discharge medications include Risperdal 0.5 mg twice daily 1 mg at bedtime, Depakote 250 mg 3 times per day, Zoloft 50 mg and trazodone 50 mg as needed. Discharge summary showed group participation and needing prompts for ADLs. Today patient presents with clear established dementia. Was trying to exit the unit. Pleasant on engagement. Reports she has been here since October. Unable to say the year. Reports she comes here to get some good sleep at nighttime and in the daytime go shopping. Reports that she looks forward to the children getting out of school and looking after them. No aggression or agitation noted. Denies depression. No evidence of SI or HI. Past Psychiatric History: Inpatient: Discharge from on 02/19/2022 OP: [facility] Past trials: sertraline, trazodone. Medical Evaluation Reviewed: Hospitalist Vidhya Pending [facility] Family History: unknown Social History: lives in memory unit at [facility] in [place]. She has step son, Mac. Trauma History: Unknown Diagnostics Vital Signs (24Hr): Vital Signs - 24 hr 02/19/22 21:56 Temperature 98.4 F Pulse Rate 81 Respiratory Rate 18 Blood Pressure 122/78 Pulse Oximetry 96 Oxygen Delivery Method Room Air BMI result Body Mass Index 25.4 Labs Results: 02/20/22 06:52 02/20/22 06:52 Labs: Laboratory Results - last 48 hr 02/20/22 02/20/22 02/20/22 06:52 06:52 06:52 WBC 9.2 RBC 3.74 L Hgb 12.2 Hct 35.7 L MCV 95.5 MCH 32.6 MCHC 34.2 RDW 12.6 Plt Count 219 MPV 10.7 Immature Gran % (Auto) 1.6 H Neut % (Auto) 57.3 Lymph % (Auto) 24.5 [place] % (Auto) 12.4 H Eos % (Auto) 3.5 Baso % (Auto) 0.7 Lymph # (Auto) 2.2 [place] # (Auto) 1.1 Eos # (Auto) 0.3 Baso # (Auto) 0.1 Abs Immat Gran (auto) 0.15 H Absolute Neuts (auto) 5.3 Absolute Nucleated RBC 0.000 Nucleated RBC % (auto) 0.0 Sodium 137 Potassium 4.1 Chloride 104 Carbon Dioxide 23 Anion Gap 14 BUN 14 Creatinine 0.72 Estim Creat Clear Calc 49.0 Estimated GFR > 60 Fasting Glucose 88 Estimat Average Glucose 108 Hemoglobin A1c % 5.4 Calcium 8.4 Magnesium 2.1 Total Bilirubin 0.4 AST 19 ALT 15 Alkaline Phosphatase 62 Total Protein 5.8 L Albumin 3.2 L Triglycerides 319 Cholesterol 234 LDL Cholesterol, Calc 143 HDL Cholesterol 28 TSH 6.56 H Free T4 0.77 Meds/Allergies Meds Home Medications Medication Instructions Recorded Confirmed Type cholecalciferol (vitamin D3) 25 25 mcg PO DAILY 02/19/22 02/19/22 History mcg (1,000 unit) tablet fluticasone propionate 50 2 spray intranasal DAILY 02/19/22 02/19/22 History mcg/actuation nasal spray,suspension latanoprost 0.005 % eye drops 1 drp ophthalmic (eye) QPM 02/19/22 02/19/22 History levothyroxine 50 mcg tablet 1 tab PO DAILY 02/19/22 02/19/22 History timolol maleate 0.5 % once daily 1 drp ophthalmic (eye) DAILY 02/19/22 02/19/22 History eye drops Allergies Allergies Allergy/AdvReac Type Severity Reaction Status Date / Time codeine Allergy Mild Hives Verified 01/25/22 16:47 Sulfa (Sulfonamide Allergy Mild HIVES Verified 01/25/22 16:47 Antibiotics) Mental Status Exam Mental Status Exam Narrative: Pleasant. Engaged. Clear cognitive impairment consistent with established dementia. Believes is October. Unclear on year. Otherwise she is in hospital. No evidence of paranoia depression SI or HI. Assessment & Plan Assessment & Plan (1) Alzheimer's dementia with behavioral disturbance: Status: Acute Code(s): G30.9 - Alzheimer's disease, unspecified; F02.81 - Dementia in other diseases classified elsewhere with behavioral disturbance Plan Continue with medications as per discharge on 02/18/2022: Risperdal 0.5 mg twice daily 1 mg at bedtime, Depakote 250 mg 3 times per day, Zoloft 50 mg and trazodone 50 mg as needed. Primary treatment team to reengage with family Patient educated on: therapeutic strategies (Groups and reoriented to staff and unit) Informed Consent: further education needed Reason for continued inpatient stay Substantial Risk for: inability to function
[2022-02-20 19:07] VITALS: BP 114/56; PULSE 80; RESP 16; TEMP 37.2; O2SAT 93
[2022-02-20] MEDS: traZODone HCL 50 MG TABLET PO (20:16)
[2022-02-20] MEDS: risperiDONE 1 MG TABLET PO (20:16)
[2022-02-20] MEDS: Divalproex Sodium 250 MG TABLET.DR PO (20:20)
[2022-02-21] MEDS: Levothyroxine Sodium 50 MCG TABLET PO (05:57)
[2022-02-21 07:30] VITALS: BP 116/57; PULSE 67; RESP 16; TEMP 36.4; O2SAT 90
[2022-02-21] MEDS: Divalproex Sodium 250 MG TABLET.DR PO ×2 (08:23→15:35)
[2022-02-21] MEDS: Cholecalciferol (Vitamin D3) 10 MCG TABLET PO (08:23)
[2022-02-21] MEDS: risperiDONE 0.5 MG TABLET PO (08:23)
[2022-02-21 08:45] LABS: Folate 10.3 ng/mL (> or = 4.0); Vitamin B12 243 pg/mL (200-900)
[2022-02-21] MEDS: Fluticasone Propionate Nasal 16 GM SPRAY 2 SPRAY NOSTRIL-B (10:20)
--- NOTE | 2022-02-21 12:27 | P.PNPSI_ITS ---
Subjective Subjective Date of Service: 02/21/22 Reason For Visit: dementia Subjective Notes: Conditional Voluntary Interim History: The nursing staff reported the patient refused her medications in the morning but later took it with a lot encouragement, she remains pleasantly confused. On interview the patient denies new symptoms she looks pleasantly confused. Mental Status Exam Mental Status Exam Patient Appearance: Well Grooomed Patient Orientation: Person and Situation Level of Consciousness: Awake Patient Behavior: Cooperative Mood Description: Suspicious Affect Description: Labile Patient Cognition Impaired: Yes Ability to Follow Directions: Good Speech Pattern: Clear Hallucinations: None Delusions: Ideas of Reference Thought Process: Distracted Thought Content: positive for [place] and positive for Circumstantial Judgement: Fair Diagnostics Vital Signs (24Hr): Vital Signs - 24 hr 02/20/22 19:07 02/21/22 07:30 Temperature 98.9 F 97.6 F Pulse Rate 80 67 Respiratory Rate 16 16 Blood Pressure 114/56 L 116/57 L Pulse Oximetry 93 90 L Oxygen Delivery Method Room Air Room Air BMI result Body Mass Index 25.4 Labs Results: 02/20/22 06:52 02/20/22 06:52 Labs: Laboratory Results - last 48 hr 02/20/22 02/20/22 02/20/22 06:52 06:52 06:52 WBC 9.2 RBC 3.74 L Hgb 12.2 Hct 35.7 L MCV 95.5 MCH 32.6 MCHC 34.2 RDW 12.6 Plt Count 219 MPV 10.7 Immature Gran % (Auto) 1.6 H Neut % (Auto) 57.3 Lymph % (Auto) 24.5 [place] % (Auto) 12.4 H Eos % (Auto) 3.5 Baso % (Auto) 0.7 Lymph # (Auto) 2.2 [place] # (Auto) 1.1 Eos # (Auto) 0.3 Baso # (Auto) 0.1 Abs Immat Gran (auto) 0.15 H Absolute Neuts (auto) 5.3 Absolute Nucleated RBC 0.000 Nucleated RBC % (auto) 0.0 Sodium 137 Potassium 4.1 Chloride 104 Carbon Dioxide 23 Anion Gap 14 BUN 14 Creatinine 0.72 Estim Creat Clear Calc 49.0 Estimated GFR > 60 Fasting Glucose 88 Estimat Average Glucose 108 Hemoglobin A1c % 5.4 Calcium 8.4 Magnesium 2.1 Total Bilirubin 0.4 AST 19 ALT 15 Alkaline Phosphatase 62 Total Protein 5.8 L Albumin 3.2 L Triglycerides 319 Cholesterol 234 LDL Cholesterol, Calc 143 HDL Cholesterol 28 Vitamin B12 Folate TSH 6.56 H Free T4 0.77 02/20/22 06:52 WBC RBC Hgb Hct MCV MCH MCHC RDW Plt Count MPV Immature Gran % (Auto) Neut % (Auto) Lymph % (Auto) [place] % (Auto) Eos % (Auto) Baso % (Auto) Lymph # (Auto) [place] # (Auto) Eos # (Auto) Baso # (Auto) Abs Immat Gran (auto) Absolute Neuts (auto) Absolute Nucleated RBC Nucleated RBC % (auto) Sodium Potassium Chloride Carbon Dioxide Anion Gap BUN Creatinine Estim Creat Clear Calc Estimated GFR Fasting Glucose Estimat Average Glucose Hemoglobin A1c % Calcium Magnesium Total Bilirubin AST ALT Alkaline Phosphatase Total Protein Albumin Triglycerides Cholesterol LDL Cholesterol, Calc HDL Cholesterol Vitamin B12 243 Folate 10.3 TSH Free T4 Medications Medications Current Medications Acetaminophen (Acetaminophen 325 Mg Tablet) 650 mg PO Q6H PRN PRN Reason: Headache/Pain Mild Scale (1-3) Al Hydroxide/Mg Hydroxide (Magnesium Hydrox/Alum Hydrox 30 Ml Oral.Susp) 30 ml PO Q6H PRN PRN Reason: Heartburn/Nausea Divalproex Sodium (Divalproex Sodium 250 Mg Tablet.Dr) 250 mg PO TID [facility] Last Admin: 02/21/22 08:23 Dose: 250 mg Fluticasone Propionate (Fluticasone Propionate Nasal 16 Gm [place]) 2 spray NOSTRIL-B DAILY [facility] Last Admin: 02/21/22 10:20 Dose: 2 spray Hydroxyzine HCl (Hydroxyzine Hcl 25 Mg Tablet) 25 mg PO Q6H PRN PRN Reason: Anxiety Latanoprost (Latanoprost 0.005 % Ophth [place] 2.5 Ml Drops) 1 drop EYE-BOTH BEDTIME [facility] Last Admin: 02/20/22 20:21 Dose: Not Given Levothyroxine Sodium (Levothyroxine Sodium 50 Mcg Tablet) 50 mcg PO DAILY@0600 [facility] Last Admin: 02/21/22 05:57 Dose: 50 mcg Magnesium Hydroxide (Milk Of Magnesia 30 Ml Oral.Susp) 30 ml PO DAILY PRN PRN Reason: Constipation Risperidone (Risperidone 0.5 Mg Tablet) 0.5 mg PO BID@0830,1430 [facility] Last Admin: 08/08/22 08:23 Dose: 0.5 mg Risperidone (Risperidone 1 Mg Tablet) 1 mg PO BEDTIME [facility] Last Admin: 02/20/22 20:16 Dose: 1 mg Sertraline HCl (Sertraline Hcl 50 Mg Tablet) 50 mg PO DAILY [facility] Last Admin: 02/21/22 08:23 Dose: 50 mg Trazodone HCl (Trazodone Hcl 50 Mg Tablet) 50 mg PO BEDTIME [facility] Last Admin: 02/20/22 20:16 Dose: 50 mg Vitamin D (Cholecalciferol (Vitamin D3) 10 Mcg Tablet) 10 mcg PO DAILY [facility] Last Admin: 02/21/22 08:23 Dose: 10 mcg Allergies Allergies Allergy/AdvReac Type Severity Reaction Status Date / Time codeine Allergy Mild Hives Verified 01/25/22 16:47 Sulfa (Sulfonamide Allergy Mild HIVES Verified 01/25/22 16:47 Antibiotics) Assessment & Plan Assessment & Plan (1) Alzheimer's dementia with behavioral disturbance: Status: Acute Code(s): G30.9 - Alzheimer's disease, unspecified; F02.81 - Dementia in other diseases classified elsewhere with behavioral disturbance Plan The patient is an 86-year-old female, with a history of dementia and aggressive behavior in the context of delirium, readmitted since she refused to go back to his [facility]. Plan Continue with medications as per discharge on 02/18/2022: Risperdal 0.5 mg twice daily 1 mg at bedtime, Depakote 250 mg 3 times per day, Zoloft 50 mg and trazodone 50 mg as needed. Primary treatment team to reengage with family Blood work for tomorrow I spent ___20___ minutes with the patient and/or on the patient floor today, greater than?50% of which was spent counseling/coordinating care. Informed Consent: further education needed Reason for contiued inpatient stay Substantial Risk for: inability to function, rapid decompensation and med/psych decompensation
[2022-02-21 18:00] VITALS: BP 110/59; PULSE 85; TEMP 36.8; O2SAT 96
[2022-02-22 07:30] VITALS: BP 129/56; PULSE 80; RESP 18; TEMP 36.8; O2SAT 92
[2022-02-22 08:02] LABS: MANUAL DIFF FLAG NO
[2022-02-22] MEDS: Cholecalciferol (Vitamin D3) 10 MCG TABLET PO (08:05)
[2022-02-22 08:11] LABS: Basophils Absolute Auto 0.1 X10*3/uL (0.0-0.2); Basophils Percent Auto 0.8 % (0-2); Eosinophils Absolute Auto 0.3 X10*3/uL (0.0-0.4); Eosinophils Percent Auto 3.7 % (0-4); Hematocrit 39.7 % (37.0-47.0); Hemoglobin 13.5 g/dl (12.0-16.0); Imm Gran Abs Auto 0.07 X10*3/uL (0.00-0.03); Imm Gran Pct Auto 0.8 % (0.0-0.4); Lymphocytes Absolute Auto 2.2 X10*3/uL (1.2-4.9); Lymphocytes Percent Auto 23.5 % (20-40); Mean Corpuscular Hemoglobin 31.8 pg (27.0-33.0); Mean Corpuscular Volume 93.4 fL (80.0-98.0); Mean Platelet Volume 10.4 fL (9.4-12.3); Monocytes Percent Auto 10.5 % (2-11); Neutrophils Absolute Auto 5.6 x10*3/uL (2.0-8.3); Neutrophils Percent Auto 60.7 % (45-73); Platelet Count 255 X10*3/uL (160-400); Red Blood Count 4.25 X10*6/uL (4.20-5.50); Red Cell Distribution Width 12.5 % (11.0-16.0); White Blood Count 9.2 X10*3/uL (4.8-10.8)
[2022-02-22 08:18] LABS: Estimated Average Glucose 111 mg/dL; Hemoglobin A1c % 5.5 %
[2022-02-22 08:41] LABS: Alanine Aminotransferase 16 U/L (0-31); Albumin Level 3.6 g/dL (3.5-5.0); Alkaline Phosphatase 68 U/L (39-117); Anion Gap 15 (12-20); Aspartate Amino Transferase 21 U/L (5-31); Bilirubin Direct < 0.2 mg/dL (0.0-0.5); Bilirubin Total 0.4 mg/dL (0.0-1.0); Blood Urea Nitrogen 13 mg/dL (9-16); Calcium 8.6 mg/dL (8.4-10.2); Carbon Dioxide 21 mmol/L (22-29); Chloride 108 mmol/L (96-108); Cholesterol 259 mg/dL; Estimated Glomerular Filt Rate > 60; Glucose Random 95 mg/dL (60-115); HDL Cholesterol 29 mg/dL; LDL Cholesterol Calculated 162 mg/dl; Potassium 4.3 mmol/L (3.3-5.1); Sodium 140 mmol/L (135-145); Total Protein 6.3 g/dL (6.5-8.0); Triglycerides 344 mg/dL
--- NOTE | 2022-02-22 10:03 | P.PNPSI_ITS ---
Subjective Subjective Date of Service: 02/22/22 Reason For Visit: dementia Subjective Notes: Conditional Voluntary Interim History: The nursing staff reported the patient refused her medications in the morning as yesterday. Even though, she has been easily redirectable. The high school social studies tutor talk with his family and they are going to visit a new assisted living facility. The staff reported that her nose was staffed and we did a COVID test today. On interview the patient denies new symptoms Mental Status Exam Mental Status Exam Patient Appearance: Well Grooomed Patient Orientation: Person and Situation Level of Consciousness: Awake Patient Behavior: Cooperative Mood Description: Calm Affect Description: Constricted Patient Cognition Impaired: Yes Ability to Follow Directions: Good Speech Pattern: Clear Hallucinations: None Delusions: Paranoid Ideation Thought Process: Distracted and Evasive Thought Content: positive for [place] Judgement: Fair Diagnostics Vital Signs (24Hr): Vital Signs - 24 hr 02/21/22 18:00 02/22/22 07:30 Temperature 98.3 F 98.3 F Pulse Rate 85 80 Respiratory Rate 18 Blood Pressure 110/59 L 129/56 L Pulse Oximetry 96 92 Oxygen Delivery Method Room Air BMI result Body Mass Index 25.4 Labs Results: 02/22/22 07:54 02/22/22 07:54 Labs: Laboratory Results - last 48 hr 02/20/22 02/22/22 02/22/22 06:52 07:54 07:54 WBC 9.2 RBC 4.25 Hgb 13.5 Hct 39.7 MCV 93.4 MCH 31.8 MCHC 34.0 RDW 12.5 Plt Count 255 MPV 10.4 Immature Gran % (Auto) 0.8 H Neut % (Auto) 60.7 Lymph % (Auto) 23.5 [place] % (Auto) 10.5 Eos % (Auto) 3.7 Baso % (Auto) 0.8 Lymph # (Auto) 2.2 [place] # (Auto) 1.0 Eos # (Auto) 0.3 Baso # (Auto) 0.1 Abs Immat Gran (auto) 0.07 H Absolute Neuts (auto) 5.6 Absolute Nucleated RBC 0.000 Nucleated RBC % (auto) 0.0 Sodium 140 Potassium 4.3 Chloride 108 Carbon Dioxide 21 L Anion Gap 15 BUN 13 Creatinine 0.72 Estim Creat Clear Calc 49.0 Estimated GFR > 60 Random Glucose 95 Estimat Average Glucose Hemoglobin A1c % Calcium 8.6 Total Bilirubin 0.4 Direct Bilirubin < 0.2 AST 21 ALT 16 Alkaline Phosphatase 68 Total Protein 6.3 L Albumin 3.6 Triglycerides 344 Cholesterol 259 LDL Cholesterol, Calc 162 HDL Cholesterol 29 Vitamin B12 243 Folate 10.3 Valproic Acid 30.0 L 02/22/22 07:54 WBC RBC Hgb Hct MCV MCH MCHC RDW Plt Count MPV Immature Gran % (Auto) Neut % (Auto) Lymph % (Auto) [place] % (Auto) Eos % (Auto) Baso % (Auto) Lymph # (Auto) [place] # (Auto) Eos # (Auto) Baso # (Auto) Abs Immat Gran (auto) Absolute Neuts (auto) Absolute Nucleated RBC Nucleated RBC % (auto) Sodium Potassium Chloride Carbon Dioxide Anion Gap BUN Creatinine Estim Creat Clear Calc Estimated GFR Random Glucose Estimat Average Glucose 111 Hemoglobin A1c % 5.5 Calcium Total Bilirubin Direct Bilirubin AST ALT Alkaline Phosphatase Total Protein Albumin Triglycerides Cholesterol LDL Cholesterol, Calc HDL Cholesterol Vitamin B12 Folate Valproic Acid Medications Medications Current Medications Acetaminophen (Acetaminophen 325 Mg Tablet) 650 mg PO Q6H PRN PRN Reason: Headache/Pain Mild Scale (1-3) Al Hydroxide/Mg Hydroxide (Magnesium Hydrox/Alum Hydrox 30 Ml Oral.Susp) 30 ml PO Q6H PRN PRN Reason: Heartburn/Nausea Divalproex Sodium (Divalproex Sodium 250 Mg Tablet.Dr) 250 mg PO TID [facility] Last Admin: 02/22/22 09:37 Dose: Not Given Fluticasone Propionate (Fluticasone Propionate Nasal 16 Gm [place]) 2 spray NOSTRIL-B DAILY [facility] Last Admin: 02/22/22 09:36 Dose: Not Given Hydroxyzine HCl (Hydroxyzine Hcl 25 Mg Tablet) 25 mg PO Q6H PRN PRN Reason: Anxiety Latanoprost (Latanoprost 0.005 % Ophth [place] 2.5 Ml Drops) 1 drop EYE-BOTH BEDTIME [facility] Last Admin: 02/21/22 22:33 Dose: Not Given Levothyroxine Sodium (Levothyroxine Sodium 50 Mcg Tablet) 50 mcg PO DAILY@0600 [facility] Last Admin: 02/22/22 06:21 Dose: Not Given Magnesium Hydroxide (Milk Of Magnesia 30 Ml Oral.Susp) 30 ml PO DAILY PRN PRN Reason: Constipation Risperidone (Risperidone 0.5 Mg Tablet) 0.5 mg PO BID@0830,1430 [facility] Last Admin: 02/22/22 09:35 Dose: Not Given Risperidone (Risperidone 1 Mg Tablet) 1 mg PO BEDTIME [facility] Last Admin: 02/21/22 22:33 Dose: Not Given Sertraline HCl (Sertraline Hcl 50 Mg Tablet) 50 mg PO DAILY [facility] Last Admin: 02/22/22 09:37 Dose: Not Given Trazodone HCl (Trazodone Hcl 50 Mg Tablet) 50 mg PO BEDTIME [facility] Last Admin: 02/21/22 22:33 Dose: Not Given Vitamin D (Cholecalciferol (Vitamin D3) 10 Mcg Tablet) 10 mcg PO DAILY [facility] Last Admin: 02/22/22 08:05 Dose: 10 mcg Allergies Allergies Allergy/AdvReac Type Severity Reaction Status Date / Time codeine Allergy Mild Hives Verified 01/25/22 16:47 Sulfa (Sulfonamide Allergy Mild HIVES Verified 01/25/22 16:47 Antibiotics) Assessment & Plan Assessment & Plan (1) Alzheimer's dementia with behavioral disturbance: Status: Acute Code(s): G30.9 - Alzheimer's disease, unspecified; F02.81 - Dementia in other diseases classified elsewhere with behavioral disturbance Plan The patient is an 86-year-old female, with a history of dementia and aggressive behavior in the context of delirium, readmitted since she refused to go back to his [facility]. Plan Continue with medications as per discharge on 02/18/2022: Risperdal 0.5 mg twice daily 1 mg at bedtime, Depakote 250 mg 3 times per day, Zoloft 50 mg and trazodone 50 mg as needed. Primary treatment team to reengage with family Blood work VALP subtherapeutic. Change Depakote to ER at since she is more compliant at bedtime. I spent __20____ minutes with the patient and/or on the patient floor today, greater than?50% of which was spent counseling/coordinating care. Reason for contiued inpatient stay Substantial Risk for: inability to function, rapid decompensation and med/psych decompensation
[2022-02-22 10:09] LABS: COVID-19 Test Negative (Negative); IDNOW Serial# 55D5AD1C
--- NOTE | 2022-02-22 11:59 | P.CNHOSGPS_ITS ---
History of Present Illness Data of Consult Service Date: 02/22/22 Requesting physician: Francisco Ortega Primary Care Provider: Sammy Gill MD HPI Reason for consult: H&P 86-year-old female with hypothyroidism, Alzheimer's dementia and unspecified mood disorder being admitted to Geriatric Psychiatry after being transferred from [facility] ED due to increased aggression reported at the [facility] where she had been previously residing. The patient is pleasantly confused in the exam room and is unable to provide much history. She has no complaints and has not reported any complaints to staff. Review of Systems Review of Systems: ROS: Unable to obtain due to patient mental status [facility] Medical History (Updated 02/22/22 @ 12:15 by IRIS Busby) Aggression Alzheimer's dementia with behavioral disturbance Dementia Glaucoma Hypothyroidism Mood disorder Family History (Updated 02/22/22 @ 12:05 by IRIS Busby) Other Family history unknown Pertinent family history: Unable to obtain due to mental status Surgical History (Updated 02/22/22 @ 12:08 by IRIS Busby) Surgical history unknown Social History Household Members: Other Housing: Assisted Living Facility Do you presently have visiting nurse or other home services: No (It is likely that pt. has services in the home due to dementia.) Unable to assess alcohol history related to: Unknown Patient Tobacco Use Status: Former Tobacco user Tobacco use type: Cigarette Smoked in Last 30 Days: No e-Cigarette/Vaping Use: Never Used Frequency of e-Cigarette/Vaping Use: n/a Second Hand Smoke Exposure: No Use of substances other than those prescribed or required for medical reasons: Unknown Last Used Substance: Unknown Currently Displaying Signs/Symptoms of Drug Intoxication Withdrawal: No Other Past Substance Use Problem:: Pt. unable to respond due to cognitive impairment Have you been hit, kicked, punched, or otherwise hurt by someone within the past year? If so, by whom?: No (Unknown due to cognitive impairment) Do you feel safe in your current relationship?: No Current Relationship Is there a partner from a previous relationship who is making you feel unsafe now?: No (Unknown due to cognitive impairment) Are you made to feel afraid or neglected: No (Unknown due to cognitive impairment) Spiritual Healthcare Practices: n/a Mormon Healthcare Practices: n/a Cultural Healthcare Practices: n/a Advance Directives: Yes Advance Directives Information Provided: No (Pt. unable to understand due to dementia.) Advance Directives on File: No Do you have thoughts of harming others: None Do you have a plan to hurt others: No Plan Recently lost weight without trying: No Eating poorly because of decreased appetite: No Nutrition Risks: No Nutritional Risk Patient : No : No Poor oral hygiene: No service: No Sexual orientation: Straight/Heterosexual Meds Allergies Allergy/AdvReac Type Severity Reaction Status Date / Time codeine Allergy Mild Hives Verified 01/25/22 16:47 Sulfa (Sulfonamide Allergy Mild HIVES Verified 01/25/22 16:47 Antibiotics) Active Medications: Current Medications Acetaminophen (Acetaminophen 325 Mg Tablet) 650 mg PO Q6H PRN PRN Reason: Headache/Pain Mild Scale (1-3) Al Hydroxide/Mg Hydroxide (Magnesium Hydrox/Alum Hydrox 30 Ml Oral.Susp) 30 ml PO Q6H PRN PRN Reason: Heartburn/Nausea Divalproex Sodium (Divalproex Sodium Er 250 Mg Tab.Er.24h) 750 mg PO BEDTIME [facility] Fluticasone Propionate (Fluticasone Propionate Nasal 16 Gm [place]) 2 spray NOSTR [place]-B DAILY [facility] Last Admin: 02/22/22 09:36 Dose: Not Given Hydroxyzine HCl (Hydroxyzine Hcl 25 Mg Tablet) 25 mg PO Q6H PRN PRN Reason: Anxiety Latanoprost (Latanoprost 0.005 % Ophth [place] 2.5 Ml Drops) 1 drop EYE-BOTH BEDTIME [facility] Last Admin: 02/21/22 22:33 Dose: Not Given Levothyroxine Sodium (Levothyroxine Sodium 50 Mcg Tablet) 50 mcg PO DAILY@0600 [facility] Last Admin: 02/22/22 06:21 Dose: Not Given Magnesium Hydroxide (Milk Of Magnesia 30 Ml Oral.Susp) 30 ml PO DAILY PRN PRN Reason: Constipation Risperidone (Risperidone 0.5 Mg Tablet) 0.5 mg PO BID@0830,1430 [facility] Last Admin: 02/22/22 09:35 Dose: Not Given Risperidone (Risperidone 1 Mg Tablet) 1 mg PO BEDTIME [facility] Last Admin: 02/21/22 22:33 Dose: Not Given Sertraline HCl (Sertraline Hcl 50 Mg Tablet) 50 mg PO DAILY [facility] Last Admin: 02/22/22 09:37 Dose: Not Given Trazodone HCl (Trazodone Hcl 50 Mg Tablet) 50 mg PO BEDTIME [facility] Last Admin: 02/21/22 22:33 Dose: Not Given Vitamin D (Cholecalciferol (Vitamin D3) 10 Mcg Tablet) 10 mcg PO DAILY [facility] Last Admin: 02/22/22 08:05 Dose: 10 mcg Home Medications Medication Instructions Recorded Confirmed Last Taken Type cholecalciferol (vitamin D3) 25 25 mcg PO DAILY 02/19/22 02/19/22 02/19/22 History mcg (1,000 unit) tablet fluticasone propionate 50 2 spray intranasal DAILY 02/19/22 02/19/22 02/19/22 Hi story mcg/actuation nasal spray,suspension latanoprost 0.005 % eye drops 1 drp ophthalmic (eye) QPM 02/19/22 02/19/22 02/19/22 History levothyroxine 50 mcg tablet 1 tab PO DAILY 02/19/22 02/19/22 02/19/22 History timolol maleate 0.5 % once daily 1 drp ophthalmic (eye) DAILY 02/19/22 02/19/22 02/19/22 History eye drops Results Labs CBC and Chem 7: 02/22/22 07:54 02/22/22 07:54 Labs: Laboratory Results - last 24 hr 02/22/22 02/22/22 02/22/22 07:54 07:54 07:54 MCV 93.4 MCH 31.8 MCHC 34.0 RDW 12.5 Plt Count 255 MPV 10.4 Immature Gran % (Auto) 0.8 H Neut % (Auto) 60.7 Lymph % (Auto) 23.5 [place] % (Auto) 10.5 Eos % (Auto) 3.7 Baso % (Auto) 0.8 Lymph # (Auto) 2.2 [place] # (Auto) 1.0 Eos # (Auto) 0.3 Baso # (Auto) 0.1 Abs Immat Gran (auto) 0.07 H Absolute Neuts (auto) 5.6 Absolute Nucleated RBC 0.000 Nucleated RBC % (auto) 0.0 Anion Gap 15 Estim Creat Clear Calc 49.0 Estimated GFR > 60 Random Glucose 95 Estimat Average Glucose 111 Hemoglobin A1c % 5.5 Calcium 8.6 Total Bilirubin 0.4 Direct Bilirubin < 0.2 AST 21 ALT 16 Alkaline Phosphatase 68 Total Protein 6.3 L Albumin 3.6 Triglycerides 344 Cholesterol 259 LDL Cholesterol, Calc 162 HDL Cholesterol 29 Valproic Acid 30.0 L COVID-19 ([facility]) COVID-19 Clin Com 02/22/22 09:37 MCV MCH MCHC RDW Plt Count MPV Immature Gran % (Auto) Neut % (Auto) Lymph % (Auto) [place] % (Auto) Eos % (Auto) Baso % (Auto) Lymph # (Auto) [place] # (Auto) Eos # (Auto) Baso # (Auto) Abs Immat Gran (auto) Absolute Neuts (auto) Absolute Nucleated RBC Nucleated RBC % (auto) Anion Gap Estim Creat Clear Calc Estimated GFR Random Glucose Estimat Average Glucose Hemoglobin A1c % Calcium Total Bilirubin Direct Bilirubin AST ALT Alkaline Phosphatase Total Protein Albumin Triglycerides Cholesterol LDL Cholesterol, Calc HDL Cholesterol Valproic Acid COVID-19 ([facility]) Negative COVID-19 Clin Com See Note Assessment and Plan (1) Alzheimer's dementia with behavioral disturbance: Status: Acute (2) Aggression: Status: Acute (3) Mood disorder: Status: Acute (4) Hypothyroidism: Status: Acute Plan Patient wtih alzheimer's dementia, aggression, unspecified mood disorder, and hy pothyroidism admitted for aggressive behavior with recent discharge from [facility] ago. 1-Alzheimer's dementia with behavioral disturbance -Former resident at [facility] unable to remain in residence due to aggression. -Pleasant but confused on exam. Continue plan per psychiatry 2- Hypothyroidism - Continue levothyroxine 3- Glaucoma -Continue timolol and latanoprost Thank you for allowing me to participate in this consult. Signing off at this time. Please do not hesitate to call for further questions. Physical Exam Vital Signs: Last Vital Signs Temp 98.3 F 02/22/22 07:30 Pulse 80 02/22/22 07:30 Resp 18 02/22/22 07:30 BP 129/56 L 02/22/22 07:30 Pulse Ox 92 02/22/22 07:30 O2 Del Method 02/22/22 07:30 BMI result Body Mass Index 25.4 Constitutional - Awake and Alert, No apparent distress Eyes - PERRLA, EOMI Cardiovascular - S1S2, RRR, No edema Respiratory - Normal lung expansion, Normal respiratory effort, No respiratory distress, CTA bilaterally Gastrointestinal - NT / ND; +BS; No rebound or guarding - No CVA tenderness Extremities - no calf tenderness bilaterally, no swelling Skin - Warm/Dry Neurological - Alert & oriented to self. Pleasantly confused, able to answer simple questions, CN II-XII in tact, 5/5 strength BUE and BLE Psychological - Flat affect. Non aggressive Neuro Cranial nerves: Yes CN's II-XII intact bilaterally
[2022-02-22] MEDS: risperiDONE 0.5 MG TABLET PO (14:02)
[2022-02-22 20:10] VITALS: BP 151/66; PULSE 76; RESP 18; TEMP 36.6; O2SAT 96
[2022-02-22] MEDS: Latanoprost 0.005 % Ophth Sol 2.5 ML DROPS 1 DROP EYE-BOTH (20:37)
[2022-02-22] MEDS: Divalproex Sodium ER 250 MG TAB.ER.24H 750 MG PO (20:37)
[2022-02-22] MEDS: traZODone HCL 50 MG TABLET PO (20:37)
[2022-02-22] MEDS: risperiDONE 1 MG TABLET PO (20:41)
[2022-02-23] MEDS: Levothyroxine Sodium 50 MCG TABLET PO (05:17)
[2022-02-23 07:00] VITALS: BP 142/70; PULSE 68; RESP 15; TEMP 36.4; O2SAT 97
[2022-02-23] MEDS: Fluticasone Propionate Nasal 16 GM SPRAY 2 SPRAY NOSTRIL-B (08:28)
--- NOTE | 2022-02-23 12:02 | P.PNPSI_ITS ---
Subjective Subjective Date of Service: 02/23/22 Reason For Visit: dementia Subjective Notes: Conditional Voluntary Interim History: The nursing staff reported the patient refused her medications in the morning, she usually refused her meds in the morning but she take it at bedtime so we change the Depakote at bedtime. Yesterday she had a court and guardianship was granted. Today she is screen by an assisted living facility. On interview the patient is pleasantly confused. Mental Status Exam Mental Status Exam Patient Appearance: Appropriate Patient Orientation: Person and Situation Level of Consciousness: Awake Patient Behavior: Cooperative Mood Description: Calm Affect Description: Labile Patient Cognition Impaired: Yes Ability to Follow Directions: Good Speech Pattern: Monotone Hallucinations: None Delusions: Not Present Thought Process: Illogical and Distracted Thought Content: positive for Slowed Thinking Judgement: Poor Diagnostics Vital Signs (24Hr): Vital Signs - 24 hr 02/22/22 20:10 02/23/22 07:00 Temperature 98 F 97.5 F Pulse Rate 76 68 Respiratory Rate 18 15 Blood Pressure 151/66 H 142/70 H Pulse Oximetry 96 97 Oxygen Delivery Method Room Air Room Air BMI result Body Mass Index 25.4 Labs Results: 02/22/22 07:54 02/22/22 07:54 Labs: Laboratory Results - last 48 hr 02/22/22 02/22/22 02/22/22 07:54 07:54 07:54 WBC 9.2 RBC 4.25 Hgb 13.5 Hct 39.7 MCV 93.4 MCH 31.8 MCHC 34.0 RDW 12.5 Plt Count 255 MPV 10.4 Immature Gran % (Auto) 0.8 H Neut % (Auto) 60.7 Lymph % (Auto) 23.5 [place] % (Auto) 10.5 Eos % (Auto) 3.7 Baso % (Auto) 0.8 Lymph # (Auto) 2.2 [place] # (Auto) 1.0 Eos # (Auto) 0.3 Baso # (Auto) 0.1 Abs Immat Gran (auto) 0.07 H Absolute Neuts (auto) 5.6 Absolute Nucleated RBC 0.000 Nucleated RBC % (auto) 0.0 Sodium 140 Potassium 4.3 Chloride 108 Carbon Dioxide 21 L Anion Gap 15 BUN 13 Creatinine 0.72 Estim Creat Clear Calc 49.0 Estimated GFR > 60 Random Glucose 95 Estimat Average Glucose 111 Hemoglobin A1c % 5.5 Calcium 8.6 Total Bilirubin 0.4 Direct Bilirubin < 0.2 AST 21 ALT 16 Alkaline Phosphatase 68 Total Protein 6.3 L Albumin 3.6 Triglycerides 344 Cholesterol 259 LDL Cholesterol, Calc 162 HDL Cholesterol 29 Valproic Acid 30.0 L COVID-19 ([facility]) COVID-19 Clin Com 02/22/22 09:37 WBC RBC Hgb Hct MCV MCH MCHC RDW Plt Count MPV Immature Gran % (Auto) Neut % (Auto) Lymph % (Auto) [place] % (Auto) Eos % (Auto) Baso % (Auto) Lymph # (Auto) [place] # (Auto) Eos # (Auto) Baso # (Auto) Abs Immat Gran (auto) Absolute Neuts (auto) Absolute Nucleated RBC Nucleated RBC % (auto) Sodium Potassium Chloride Carbon Dioxide Anion Gap BUN Creatinine Estim Creat Clear Calc Estimated GFR Random Glucose Estimat Average Glucose Hemoglobin A1c % Calcium Total Bilirubin Direct Bilirubin AST ALT Alkaline Phosphatase Total Protein Albumin Triglycerides Cholesterol LDL Cholesterol, Calc HDL Cholesterol Valproic Acid COVID-19 ([facility]) Negative COVID-19 Clin Com See Note Medications Medications Current Medications Acetaminophen (Acetaminophen 325 Mg Tablet) 650 mg PO Q6H PRN PRN Reason: Headache/Pain Mild Scale (1-3) Al Hydroxide/Mg Hydroxide (Magnesium Hydrox/Alum Hydrox 30 Ml Oral.Susp) 30 ml PO Q6H PRN PRN Reason: Heartburn/Nausea Divalproex Sodium (Divalproex Sodium Er 250 Mg Tab.Er.24h) 750 mg PO BEDTIME [facility] BEDS AT [facility] Last Admin: 02/22/22 20:37 Dose: 750 mg Fluticasone Propionate (Fluticasone Propionate Nasal 16 Gm [place]) 2 spray NOSTRIL-B DAILY [facility]S [facility] 234 BEDS AT [facility] Last Admin: 02/23/22 08:28 Dose: 2 spray Hydroxyzine HCl (Hydroxyzine Hcl 25 Mg Tablet) 25 mg PO Q6H PRN PRN Reason: Anxiety Latanoprost (Latanoprost 0.005 % Ophth [place] 2.5 Ml Drops) 1 drop EYE-BOTH BEDTIME [facility]S [facility]CLUDE 234 BEDS AT THE [facility] Last Admin: 02/22/22 20:37 Dose: 1 drop Levothyroxine Sodium (Levothyroxine Sodium 50 Mcg Tablet) 50 mcg PO DAILY@0600 COUNTS [facility]CLUDE 234 BEDS AT THE [facility] Last Admin: 02/23/22 05:17 Dose: 50 mcg Magnesium Hydroxide (Milk Of Magnesia 30 Ml Oral.Susp) 30 ml PO DAILY PRN PRN Reason: Constipation Risperidone (Risperidone 0.5 Mg Tablet) 0.5 mg PO BID@0830,1430 [facility]S [facility]CLUDE 234 BEDS AT THE [facility] Last Admin: 02/23/22 08:33 Dose: Not Given Risperidone (Risperidone 1 Mg Tablet) 1 mg PO BEDTIME [facility]S [facility]CLUDE 234 BEDS AT [facility] Last Admin: 02/22/22 20:41 Dose: 1 mg Sertraline HCl (Sertraline Hcl 50 Mg Tablet) 50 mg PO DAILY [facility]S [facility]CLUDE 234 BEDS AT THE [facility] Last Admin: 02/23/22 10:09 Dose: Not Given Trazodone HCl (Trazodone Hcl 50 Mg Tablet) 50 mg PO BEDTIME [facility]S INCLUDE 234 BEDS AT THE [facility] Last Admin: 02/22/22 20:37 Dose: 50 mg Vitamin D (Cholecalciferol (Vitamin D3) 10 Mcg Tablet) 10 mcg PO DAILY [facility]S INCLUDE 234 BEDS AT THE [facility] Last Admin: 02/23/22 10:09 Dose: Not Given Allergies Allergies Allergy/AdvReac Type Severity Reaction Status Date / Time codeine Allergy Mild Hives Verified 01/25/22 16:47 Sulfa (Sulfonamide Allergy Mild HIVES Verified 01/25/22 16:47 Antibiotics) Assessment & Plan Assessment & Plan (1) Alzheimer's dementia with behavioral disturbance: Status: Acute Code(s): G30.9 - Alzheimer's disease, unspecified; F02.81 - Dementia in other diseases classified elsewhere with behavioral disturbance (2) Aggression: Status: Acute Code(s): R46.89 - Other symptoms and signs involving appearance and behavior (3) Mood disorder: Status: Acute Code(s): F39 - Unspecified mood [affective] disorder (4) Hypothyroidism: Status: Acute Code(s): E03.9 - Hypothyroidism, unspecified Plan Patient wtih alzheimer's dementia, aggression, unspecified mood disorder, and hypothyroidism admitted for aggressive behavior with recent discharge from [facility] ago. 1-Alzheimer's dementia with behavioral disturbance -Former resident at [facility] unable to remain in residence due to aggression. -Pleasant but confused on exam. Continue plan per psychiatry 2- Hypothyroidism - Continue levothyroxine 3- Glaucoma -Continue timolol and latanoprost Thank you for allowing me to participate in this consult. Signing off at this time. Please do not hesitate to call for further questions. I spent __20____ minutes with the patient and/or on the patient floor today, greater than?50% of which was spent counseling/coordinating care. Reason for contiued inpatient stay Substantial Risk for: inability to function, rapid decompensation and med/psych decompensation
--- NOTE | 2022-02-23 14:28 | PC.NURSE ---
Patient pleasantly confused. Evaluated by [facility] for placement. Exhibiting good behavioral control.
[2022-02-23] MEDS: risperiDONE 0.5 MG TABLET PO (15:21)
[2022-02-23 18:00] VITALS: BP 116/58; PULSE 76; RESP 16; TEMP 37; O2SAT 95
[2022-02-23] MEDS: traZODone HCL 50 MG TABLET PO (20:31)
[2022-02-23] MEDS: Divalproex Sodium ER 250 MG TAB.ER.24H 750 MG PO (20:31)
[2022-02-23] MEDS: Latanoprost 0.005 % Ophth Sol 2.5 ML DROPS 1 DROP EYE-BOTH (20:32)
[2022-02-23] MEDS: risperiDONE 1 MG TABLET PO (20:32)
[2022-02-24 06:00] VITALS: BP 130/73; PULSE 66; RESP 16; TEMP 36.7; O2SAT 93
[2022-02-24] MEDS: Levothyroxine Sodium 50 MCG TABLET PO (06:24)
[2022-02-24 07:00] VITALS: BMI 25.4
[2022-02-24] MEDS: Sertraline HCL 50 MG TABLET PO (09:37)
[2022-02-24] MEDS: Cholecalciferol (Vitamin D3) 10 MCG TABLET PO (09:38)
[2022-02-24] MEDS: risperiDONE 0.5 MG TABLET PO (09:38)
--- NOTE | 2022-02-24 11:11 | HO.PSYCHPN ---
Subjective Subjective Date of Service: 02/24/22 Reason For Visit: dementia Subjective Notes: Conditional Voluntary Interim History: The nursing staff reported the patient slept well, she has been compliant with medications. She has attended a few groups and she is confused regarding her room, easily redirectable. On interview the patient was pleasantly confused Mental Status Exam Mental Status Exam Patient Appearance: Well Grooomed Patient Orientation: Person and Situation Level of Consciousness: Awake Patient Behavior: Cooperative and Passive Mood Description: Withdrawn Affect Description: Labile Patient Cognition Impaired: Yes Ability to Follow Directions: Good Speech Pattern: Clear Hallucinations: None Delusions: Not Present Thought Process: Illogical and Distracted Thought Content: positive for [place] and positive for Loose Associations Judgement: Poor Diagnostics Vital Signs (24Hr): Vital Signs - 24 hr 02/23/22 18:00 02/24/22 06:00 Temperature 98.6 F 98.1 F Pulse Rate 76 66 Respiratory Rate 16 16 Blood Pressure 116/58 L 130/73 Pulse Oximetry 95 93 Oxygen Delivery Method Room Air Room Air BMI result Body Mass Index 25.4 Labs Results: 02/22/22 07:54 02/22/22 07:54 Medications Medications Current Medications Acetaminophen (Acetaminophen 325 Mg Tablet) 650 mg PO Q6H PRN PRN Reason: Headache/Pain Mild Scale (1-3) Al Hydroxide/Mg Hydroxide (Magnesium Hydrox/Alum Hydrox 30 Ml Oral.Susp) 30 ml PO Q6H PRN PRN Reason: Heartburn/Nausea Divalproex Sodium (Divalproex Sodium Er 250 Mg Tab.Er.24h) 750 mg PO BEDTIME [facility] Last Admin: 02/23/22 20:31 Dose: 750 mg Fluticasone Propionate (Fluticasone Propionate Nasal 16 Gm [place]) 2 spray NOSTRIL-B DAILY [facility] Last Admin: 02/24/22 09:38 Dose: Not Given Hydroxyzine HCl (Hydroxyzine Hcl 25 Mg Tablet) 25 mg PO Q6H PRN PRN Reason: Anxiety Latanoprost (Latanoprost 0.005 % Ophth [place] 2.5 Ml Drops) 1 drop EYE-BOTH BEDTIME [facility] Last Admin: 02/23/22 20:32 Dose: 1 drop Levothyroxine Sodium (Levothyroxine Sodium 50 Mcg Tablet) 50 mcg PO DAILY@0600 [facility] Last Admin: 02/24/22 06:24 Dose: 50 mcg Magnesium Hydroxide (Milk Of Magnesia 30 Ml Oral.Susp) 30 ml PO DAILY PRN PRN Reason: Constipation Risperidone (Risperidone 0.5 Mg Tablet) 0.5 mg PO BID@0830,1430 [facility] Last Admin: 02/24/22 09:38 Dose: 0.5 mg Risperidone (Risperidone 1 Mg Tablet) 1 mg PO BEDTIME [facility] Last Admin: 02/23/22 20:32 Dose: 1 mg Sertraline HCl (Sertraline Hcl 50 Mg Tablet) 50 mg PO DAILY [facility] Last Admin: 02/24/22 09:37 Dose: 50 mg Trazodone HCl (Trazodone Hcl 50 Mg Tablet) 50 mg PO BEDTIME [facility] Last Admin: 02/23/22 20:31 Dose: 50 mg Vitamin D (Cholecalciferol (Vitamin D3) 10 Mcg Tablet) 10 mcg PO DAILY [facility] Last Admin: 02/24/22 09:38 Dose: 10 mcg Allergies Allergies Allergy/AdvReac Type Severity Reaction Status Date / Time codeine Allergy Mild Hives Verified 01/25/22 16:47 Sulfa (Sulfonamide Allergy Mild HIVES Verified 01/25/22 16:47 Antibiotics) Assessment & Plan Assessment & Plan (1) Alzheimer's dementia with behavioral disturbance: Status: Acute Code(s): G30.9 - Alzheimer's disease, unspecified; F02.81 - Dementia in other diseases classified elsewhere with behavioral disturbance (2) Aggression: Status: Acute Code(s): R46.89 - Other symptoms and signs involving appearance and behavior (3) Mood disorder: Status: Acute Code(s): F39 - Unspecified mood [affective] disorder (4) Hypothyroidism: Status: Acute Code(s): E03.9 - Hypothyroidism, unspecified Plan Patient wtih alzheimer's dementia, aggression, unspecified mood disorder, and hypothyroidism admitted for aggressive behavior with recent discharge from [facility] ago. 1-Alzheimer's dementia with behavioral disturbance -Former resident at [facility] unable to remain in residence due to aggression. -Pleasant but confused on exam. Continue plan per psychiatry 2- Hypothyroidism - Continue levothyroxine 3- Glaucoma -Continue timolol and latanoprost Number for discharge planning Daily sure as has the night more coverage on inpatient. Yesterday she was assessment new assisted living facility and discharge planning will be arranged pretty soon. I spent ___20___ minutes with the patient and/or on the patient floor today, greater than?50% of which was spent counseling/coordinating care. Reason for contiued inpatient stay Substantial Risk for: inability to function, rapid decompensation and med/psych decompensation
[2022-02-24 18:00] VITALS: BP 100/52; PULSE 70; RESP 16; TEMP 37.2; O2SAT 96
[2022-02-24] MEDS: Latanoprost 0.005 % Ophth Sol 2.5 ML DROPS 1 DROP EYE-BOTH (19:56)
[2022-02-24] MEDS: Divalproex Sodium ER 250 MG TAB.ER.24H 750 MG PO (19:56)
[2022-02-24] MEDS: traZODone HCL 50 MG TABLET PO (19:57)
[2022-02-24] MEDS: risperiDONE 1 MG TABLET PO (19:57)
[2022-02-25 06:00] VITALS: BP 122/78; PULSE 70; RESP 16; TEMP 37; O2SAT 98
[2022-02-25] MEDS: Levothyroxine Sodium 50 MCG TABLET PO (06:23)
[2022-02-25] MEDS: Cholecalciferol (Vitamin D3) 10 MCG TABLET PO (09:56)
[2022-02-25] MEDS: risperiDONE 0.5 MG TABLET PO (09:56)
[2022-02-25] MEDS: Sertraline HCL 50 MG TABLET PO (09:56)
--- NOTE | 2022-02-25 17:34 | P.PNPSI_ITS ---
Subjective Subjective Date of Service: 02/25/22 Reason For Visit: dementia Interim History: I spoke with pt's team. They report she remains demented, poor historian. I spoke with pt, she says she slept well last night. says her mood is good. No questions or concerns. Says she is eating well. Denies physical health concerns. Pt does not know what meds she is on, says she doesnt need her medications anymore except levothyroxine, any of the other stuff i dont need unless i get to be a looney tune and then i take it. Will schedule a rapid covid test for tomorrow, as pt is leaving for the [facility], on Monday. No med changes. Medication Compliance: Yes Side effects from medications: No Attending Groups: Intermittent Review of Systems Acute medical concerns: No Medical Review of Systems: unchanged Mental Status Exam Mental Status Exam Narrative: Patient Appearance: Well Grooomed Patient Orientation: Person and Situation Level of Consciousness: Awake Patient Behavior: Cooperative and Passive Mood Description: Withdrawn Affect Description: Labile Patient Cognition Impaired: Yes Ability to Follow Directions: Good Speech Pattern: Clear Hallucinations: None Delusions: Not Present Thought Process: Illogical and Distracted Thought Content: positive for [place] and positive for Loose Associations Judgement: Poor Diagnostics Vital Signs (24Hr): Vital Signs - 24 hr 02/24/22 18:00 02/25/22 06:00 Temperature 98.9 F 98.6 F Pulse Rate 70 70 Respiratory Rate 16 16 Blood Pressure 100/52 L 122/78 Pulse Oximetry 96 98 Oxygen Delivery Method Room Air Room Air BMI result Body Mass Index 25.4 Labs Results: 02/22/22 07:54 02/22/22 07:54 Medications Medications Current Medications Acetaminophen (Acetaminophen 325 Mg Tablet) 650 mg PO Q6H PRN PRN Reason: Headache/Pain Mild Scale (1-3) Al Hydroxide/Mg Hydroxide (Magnesium Hydrox/Alum Hydrox 30 Ml Oral.Susp) 30 ml PO Q6H PRN PRN Reason: Heartburn/Nausea Divalproex Sodium (Divalproex Sodium Er 250 Mg Tab.Er.24h) 750 mg PO BEDTIME [facility] Last Admin: 02/24/22 19:56 Dose: 750 mg Fluticasone Propionate (Fluticasone Propionate Nasal 16 Gm [place]) 2 spray NOSTRIL-B DAILY [facility] Last Admin: 02/25/22 10:00 Dose: Not Given Hydroxyzine HCl (Hydroxyzine Hcl 25 Mg Tablet) 25 mg PO Q6H PRN PRN Reason: Anxiety Latanoprost (Latanoprost 0.005 % Ophth [place] 2.5 Ml Drops) 1 drop EYE-BOTH BEDTIME [facility] Last Admin: 02/24/22 19:56 Dose: 1 drop Levothyroxine Sodium (Levothyroxine Sodium 50 Mcg Tablet) 50 mcg PO DAILY@0600 [facility] Last Admin: 02/25/22 06:23 Dose: 50 mcg Magnesium Hydroxide (Milk Of Magnesia 30 Ml Oral.Susp) 30 ml PO DAILY PRN PRN Reason: Constipation Risperidone (Risperidone 0.5 Mg Tablet) 0.5 mg PO BID@0830,1430 [facility] Last Admin: 02/25/22 15:17 Dose: Not Given Risperidone (Risperidone 1 Mg Tablet) 1 mg PO BEDTIME [facility] Last Admin: 02/24/22 19:57 Dose: 1 mg Sertraline HCl (Sertraline Hcl 50 Mg Tablet) 50 mg PO DAILY [facility] Last Admin: 02/25/22 09:56 Dose: 50 mg Trazodone HCl (Trazodone Hcl 50 Mg Tablet) 50 mg PO BEDTIME [facility] Last Admin: 02/24/22 19:57 Dose: 50 mg Vitamin D (Cholecalciferol (Vitamin D3) 10 Mcg Tablet) 10 mcg PO DAILY [facility] Last Admin: 02/25/22 09:56 Dose: 10 mcg Allergies Allergies Allergy/AdvReac Type Severity Reaction Status Date / Time codeine Allergy Mild Hives Verified 01/25/22 16:47 Sulfa (Sulfonamide Allergy Mild HIVES Verified 01/25/22 16:47 Antibiotics) Assessment & Plan Assessment & Plan (1) Alzheimer's dementia with behavioral disturbance: Status: Acute Code(s): G30.9 - Alzheimer's disease, unspecified; F02.81 - Dementia in other diseases classified elsewhere with behavioral disturbance (2) Aggression: Status: Resolved Code(s): R46.89 - Other symptoms and signs involving appearance and behavior (3) Mood disorder: Status: Acute Code(s): F39 - Unspecified mood [affective] disorder (4) Hypothyroidism: Status: Acute Code(s): E03.9 - Hypothyroidism, unspecified Plan The patient is an 86-year-old female, with a history of dementia and aggressive behavior in the context of delirium, readmitted since she refused to go back to his [facility].? Plan ?Continue with medications as per discharge on 02/18/2022: Risperdal 0.5 mg twice daily 1 mg at bedtime, Depakote 250 mg 3 times per day, Zoloft 50 mg and trazodone 50 mg as needed.? Primary treatment team to reengage with family Blood work VALP subtherapeutic. Change Depakote to ER at since she is more compliant at bedtime. Per medical consult: Patient wtih alzheimer's dementia, aggression, unspecified mood disorder, and hypothyroidism admitted for aggressive behavior with recent discharge from [facility] 4 days ago. 1-Alzheimer's dementia with behavioral disturbance -Former resident at [facility] unable to remain in residence due to aggression. -Pleasant but confused on exam. Continue plan per psychiatry 2- Hypothyroidism - Continue levothyroxine 3- Glaucoma -Continue timolol and latanoprost Number for discharge planning Daily sure as has the night more coverage on inpatient. Yesterday she was assessment new assisted living facility and discharge planning will be arranged pretty soon. I spent minutes with the patient and/or on the patient floor today, greater than?50% of which was spent counseling/coordinating care. Patient educated on: medication risk/benefits and therapeutic strategies Reason for contiued inpatient stay Substantial Risk for: med/psych decompensation
[2022-02-25 18:00] VITALS: BP 124/59; PULSE 75; RESP 18; TEMP 36.4; O2SAT 95
[2022-02-25] MEDS: risperiDONE 1 MG TABLET PO (20:00)
[2022-02-25] MEDS: Latanoprost 0.005 % Ophth Sol 2.5 ML DROPS 1 DROP EYE-BOTH (20:00)
[2022-02-25] MEDS: Divalproex Sodium ER 250 MG TAB.ER.24H 750 MG PO (20:08)
[2022-02-25] MEDS: hydrOXYzine HCL 25 MG TABLET PO (23:02)
[2022-02-25] MEDS: traZODone HCL 50 MG TABLET PO (23:02)
[2022-02-26] MEDS: Levothyroxine Sodium 50 MCG TABLET PO (06:20)
[2022-02-26 07:30] VITALS: BP 145/75; PULSE 71; RESP 18; TEMP 36.5; O2SAT 97
[2022-02-26] MEDS: Sertraline HCL 50 MG TABLET PO (08:15)
[2022-02-26] MEDS: risperiDONE 0.5 MG TABLET PO ×2 (08:16→14:53)
[2022-02-26] MEDS: Cholecalciferol (Vitamin D3) 10 MCG TABLET PO (08:16)
--- NOTE | 2022-02-26 13:36 | P.PNPSI_ITS ---
Subjective Subjective Date of Service: 02/26/22 Reason For Visit: dementia Subjective Notes: Conditional Voluntary Healthcare Proxy: Yes Medical Problems Affecting Mental Status: No Interim History: pleasant and engaged. Clear cognitive impairment consistent with established dementia. No management or behavioral issues. Sleeping okay. No medication concerns. Plan discharge early this upcoming week to the [facility]. Medication Compliance: Yes Side effects from medications: No Attending Groups: Yes Review of Systems Acute medical concerns: No Review of Systems Review of Systems unremarkable Mental Status Exam Mental Status Exam Narrative: pleasant. Engage. Fairly presented. This euthymic. No SI. No HI. No psychosis or agitation. Clear cognitive impairment consistent with established dementia. Diagnostics Vital Signs (24Hr): Vital Signs - 24 hr 02/25/22 18:00 02/26/22 07:30 Temperature 97.5 F 97.7 F Pulse Rate 75 71 Respiratory Rate 18 18 Blood Pressure 124/59 L 145/75 H Pulse Oximetry 95 97 Oxygen Delivery Method Room Air Room Air BMI result Body Mass Index 25.4 Labs Results: 02/22/22 07:54 02/22/22 07:54 Medications Medications Current Medications Acetaminophen (Acetaminophen 325 Mg Tablet) 650 mg PO Q6H PRN PRN Reason: Headache/Pain Mild Scale (1-3) Al Hydroxide/Mg Hydroxide (Magnesium Hydrox/Alum Hydrox 30 Ml Oral.Susp) 30 ml PO Q6H PRN PRN Reason: Heartburn/Nausea Divalproex Sodium (Divalproex Sodium Er 250 Mg Tab.Er.24h) 750 mg PO BEDTIME [facility] Last Admin: 02/25/22 20:08 Dose: 250 mg Fluticasone Propionate (Fluticasone Propionate Nasal 16 Gm [place]) 2 spray NOSTRIL-B DAILY [facility] Last Admin: 02/26/22 10:03 Dose: Not Given Hydroxyzine HCl (Hydroxyzine Hcl 25 Mg Tablet) 25 mg PO Q6H PRN PRN Reason: Anxiety Last Admin: 02/25/22 23:02 Dose: 25 mg Latanoprost (Latanoprost 0.005 % Ophth [place] 2.5 Ml Drops) 1 drop EYE-BOTH BEDTIME [facility] Last Admin: 02/25/22 20:00 Dose: 1 drop Levothyroxine Sodium (Levothyroxine Sodium 50 Mcg Tablet) 50 mcg PO DAILY@0600 [facility] Last Admin: 02/26/22 06:20 Dose: 50 mcg Magnesium Hydroxide (Milk Of Magnesia 30 Ml Oral.Susp) 30 ml PO DAILY PRN PRN Reason: Constipation Risperidone (Risperidone 0.5 Mg Tablet) 0.5 mg PO BID@0830,1430 [facility] Last Admin: 02/26/22 08:16 Dose: 0.5 mg Risperidone (Risperidone 1 Mg Tablet) 1 mg PO BEDTIME [facility] Last Admin: 02/25/22 20:00 Dose: 1 mg Sertraline HCl (Sertraline Hcl 50 Mg Tablet) 50 mg PO DAILY [facility] Last Admin: 02/26/22 08:15 Dose: 50 mg Trazodone HCl (Trazodone Hcl 50 Mg Tablet) 50 mg PO BEDTIME [facility] Last Admin: 02/25/22 23:02 Dose: 50 mg Vitamin D (Cholecalciferol (Vitamin D3) 10 Mcg Tablet) 10 mcg PO DAILY [facility] Last Admin: 02/26/22 08:16 Dose: 10 mcg Allergies Allergies Allergy/AdvReac Type Severity Reaction Status Date / Time codeine Allergy Mild Hives Verified 01/25/22 16:47 Sulfa (Sulfonamide Allergy Mild HIVES Verified 01/25/22 16:47 Antibiotics) Assessment & Plan Assessment & Plan (1) Alzheimer's dementia with behavioral disturbance: Status: Acute Code(s): G30.9 - Alzheimer's disease, unspecified; F02.81 - Dementia in other diseases classified elsewhere with behavioral disturbance (2) Aggression: Status: Resolved Code(s): R46.89 - Other symptoms and signs involving appearance and behavior (3) Mood disorder: Status: Acute Code(s): F39 - Unspecified mood [affective] disorder (4) Hypothyroidism: Status: Acute Code(s): E03.9 - Hypothyroidism, unspecified Plan The patient is an 86-year-old female, with a history of dementia and aggressive behavior in the context of delirium, readmitted since she refused to go back to his [facility].? Plan ?Continue with medications as per discharge on 02/18/2022: Risperdal 0.5 mg twice daily 1 mg at bedtime, Depakote 250 mg 3 times per day, Zoloft 50 mg and trazodone 50 mg as needed.? Primary treatment team to reengage with family Blood work VALP subtherapeutic. Change Depakote to ER at since she is more compliant at bedtime. Per medical consult: Patient wtih alzheimer's dementia, aggression, unspecified mood disorder, and hypothyroidism admitted for aggressive behavior with recent discharge from [facility] days ago. 1-Alzheimer's dementia with behavioral disturbance -Former resident at [facility] unable to remain in residence due to aggression. -Pleasant but confused on exam. Continue plan per psychiatry 2- Hypothyroidism - Continue levothyroxine 3- Glaucoma -Continue timolol and latanoprost Number for discharge planning Daily sure as has the night more coverage on inpatient. Yesterday she was assessment new assisted living facility and discharge planning will be arranged pretty soon. 02/26/2022: No changes to treatment plan I spent minutes with the patient and/or on the patient floor today, greater than?50% of which was spent counseling/coordinating care. Reason for contiued inpatient stay Substantial Risk for: rapid decompensation
[2022-02-26 19:30] VITALS: BP 124/59; PULSE 70; RESP 16; TEMP 36.8; O2SAT 94
[2022-02-26] MEDS: Divalproex Sodium ER 250 MG TAB.ER.24H 750 MG PO (20:07)
[2022-02-26] MEDS: risperiDONE 1 MG TABLET PO (20:07)
[2022-02-27] MEDS: Levothyroxine Sodium 50 MCG TABLET PO (05:39)
[2022-02-27 07:30] VITALS: BP 134/60; PULSE 73; RESP 18; TEMP 36.7; O2SAT 96
--- NOTE | 2022-02-27 09:49 | P.PNPSI_ITS ---
Subjective Subjective Date of Service: 02/27/22 Reason For Visit: dementia Subjective Notes: Conditional Voluntary Interim History: Pleasant and engaged. Participated in group today. No management or behavioral issues. Sleeping okay. No medication concerns. Plan discharge early this upcoming week to the [facility]. Medication Compliance: Yes Side effects from medications: No Attending Groups: Yes Review of Systems Acute medical concerns: No Review of Systems Review of Systems unremarkable Mental Status Exam Mental Status Exam Narrative: pleasant. Engaged. Fairly presented. This euthymic. No SI. No HI. No psychosis or agitation. Clear cognitive impairment consistent with established dementia. Diagnostics Vital Signs (24Hr): Vital Signs - 24 hr 02/26/22 19:30 02/27/22 07:30 Temperature 98.2 F 98.1 F Pulse Rate 70 73 Respiratory Rate 16 18 Blood Pressure 124/59 L 134/60 Pulse Oximetry 94 96 Oxygen Delivery Method Room Air Room Air BMI result Body Mass Index 25.4 Labs Results: 02/22/22 07:54 02/22/22 07:54 Medications Medications Current Medications Acetaminophen (Acetaminophen 325 Mg Tablet) 650 mg PO Q6H PRN PRN Reason: Headache/Pain Mild Scale (1-3) Al Hydroxide/Mg Hydroxide (Magnesium Hydrox/Alum Hydrox 30 Ml Oral.Susp) 30 ml PO Q6H PRN PRN Reason: Heartburn/Nausea Divalproex Sodium (Divalproex Sodium Er 250 Mg Tab.Er.24h) 750 mg PO BEDTIME [facility] Last Admin: 02/26/22 20:07 Dose: 750 mg Fluticasone Propionate (Fluticasone Propionate Nasal 16 Gm [place]) 2 spray NOSTRIL-B DAILY [facility] Last Admin: 02/27/22 09:00 Dose: Not Given Hydroxyzine HCl (Hydroxyzine Hcl 25 Mg Tablet) 25 mg PO Q6H PRN PRN Reason: Anxiety Last Admin: 02/25/22 23:02 Dose: 25 mg Latanoprost (Latanoprost 0.005 % Ophth [place] 2.5 Ml Drops) 1 drop EYE-BOTH BEDTIME [facility] Last Admin: 02/26/22 22:17 Dose: Not Given Levothyroxine Sodium (Levothyroxine Sodium 50 Mcg Tablet) 50 mcg PO DAILY@0600 [facility] Last Admin: 02/27/22 05:39 Dose: 50 mcg Magnesium Hydroxide (Milk Of Magnesia 30 Ml Oral.Susp) 30 ml PO DAILY PRN PRN Reason: Constipation Risperidone (Risperidone 0.5 Mg Tablet) 0.5 mg PO BID@0830,1430 [facility] Last Admin: 02/27/22 08:59 Dose: Not Given Risperidone (Risperidone 1 Mg Tablet) 1 mg PO BEDTIME [facility] Last Admin: 02/26/22 20:07 Dose: 1 mg Sertraline HCl (Sertraline Hcl 50 Mg Tablet) 50 mg PO DAILY [facility] Last Admin: 02/27/22 09:00 Dose: Not Given Trazodone HCl (Trazodone Hcl 50 Mg Tablet) 50 mg PO BEDTIME [facility] Last Admin: 02/26/22 22:17 Dose: Not Given Vitamin D (Cholecalciferol (Vitamin D3) 10 Mcg Tablet) 10 mcg PO DAILY [facility] Last Admin: 02/27/22 09:00 Dose: Not Given Allergies Allergies Allergy/AdvReac Type Severity Reaction Status Date / Time codeine Allergy Mild Hives Verified 01/25/22 16:47 Sulfa (Sulfonamide Allergy Mild HIVES Verified 01/25/22 16:47 Antibiotics) Assessment & Plan Assessment & Plan (1) Alzheimer's dementia with behavioral disturbance: Status: Acute Code(s): G30.9 - Alzheimer's disease, unspecified; F02.81 - Dementia in other diseases classified elsewhere with behavioral disturbance (2) Aggression: Status: Resolved Code(s): R46.89 - Other symptoms and signs involving appearance and behavior (3) Mood disorder: Status: Acute Code(s): F39 - Unspecified mood [affective] disorder (4) Hypothyroidism: Status: Acute Code(s): E03.9 - Hypothyroidism, unspecified Plan The patient is an 86-year-old female, with a history of dementia and aggressive behavior in the context of delirium, readmitted since she refused to go back to his [facility].? Plan ?Continue with medications as per discharge on 02/18/2022: Risperdal 0.5 mg twice daily 1 mg at bedtime, Depakote 250 mg 3 times per day, Zoloft 50 mg and trazodone 50 mg as needed.? Primary treatment team to reengage with family Blood work VALP subtherapeutic. Change Depakote to ER at since she is more compliant at bedtime. Per medical consult: Patient wtih alzheimer's dementia, aggression, unspecified mood disorder, and hypothyroidism admitted for aggressive behavior with recent discharge from [facility] 4 days ago. 1-Alzheimer's dementia with behavioral disturbance -Former resident at [facility] unable to remain in residence due to aggression. -Pleasant but confused on exam. Continue plan per psychiatry 2- Hypothyroidism - Continue levothyroxine 3- Glaucoma -Continue timolol and latanoprost Number for discharge planning Daily sure as has the night more coverage on inpatient. Yesterday she was assessment new assisted living facility and discharge planning will be arranged pretty soon. 02/27/2022: No changes to treatment plan I spent minutes with the patient and/or on the patient floor today, greater than?50% of which was spent counseling/coordinating care. Reason for contiued inpatient stay Substantial Risk for: inability to function
[2022-02-27 18:00] VITALS: BP 136/63; PULSE 72; RESP 16; TEMP 37; O2SAT 95
--- NOTE | 2022-02-27 18:28 | PC.NURSE ---
PATIENT VISIBLE ON UNIT THROUGHOUT SHIFT. PRESENTED UNCHARACTERISTICALLY QUIET THIS MORNING BRIGHTENING UP THE SHIFT PROGRESSED. PATIENT INTERACTS WITH PEERS IN A CHEERFUL MANNER. PARTICIPATES IN GROUPS AND ENJOYS FRESH AIR BREAKS ON THE PATIO. PATIENT WAS NOT MED COMPLIANT THIS SHIFT REFUSING ALL MEDS. PATIENT REMAINS PROFOUNDLY CONFUSED OFTEN NEEDING TO BE DIRECTED TO HER ROOM.
[2022-02-27] MEDS: traZODone HCL 50 MG TABLET PO (20:39)
[2022-02-27] MEDS: Divalproex Sodium ER 250 MG TAB.ER.24H 750 MG PO (20:39)
[2022-02-27] MEDS: risperiDONE 1 MG TABLET PO (20:40)
[2022-02-27] MEDS: Latanoprost 0.005 % Ophth Sol 2.5 ML DROPS 1 DROP EYE-BOTH (20:40)
[2022-02-28 06:00] VITALS: BP 117/55; PULSE 62; RESP 16; TEMP 36.6; O2SAT 97
[2022-02-28] MEDS: Levothyroxine Sodium 50 MCG TABLET PO (06:32)
[2022-02-28] MEDS: risperiDONE 0.5 MG TABLET PO (09:15)
[2022-02-28] MEDS: Sertraline HCL 50 MG TABLET PO (09:15)
[2022-02-28] MEDS: Cholecalciferol (Vitamin D3) 10 MCG TABLET PO (09:15)
--- NOTE | 2022-02-28 14:56 | HO.PSYCHPN ---
Subjective Subjective Date of Service: 02/28/22 Reason For Visit: dementia Subjective Notes: Conditional Voluntary Interim History: The nursing staff reported the patient has been pleasantly confused, compliant with treatment. On interview the patient denies new symptoms. Team we discussed that probably she will discharge tomorrow. Mental Status Exam Mental Status Exam Patient Appearance: Well Grooomed Patient Orientation: Person and Situation Level of Consciousness: Awake Patient Behavior: Guarded and Passive Mood Description: Withdrawn Affect Description: Labile Patient Cognition Impaired: Yes Ability to Follow Directions: Good Speech Pattern: Clear Hallucinations: None Delusions: Not Present Thought Process: Distracted Judgement: Fair Diagnostics Vital Signs (24Hr): Vital Signs - 24 hr 02/27/22 18:00 02/28/22 06:00 Temperature 98.6 F 98 F Pulse Rate 72 62 Respiratory Rate 16 16 Blood Pressure 136/63 117/55 L Pulse Oximetry 95 97 Oxygen Delivery Method Room Air Room Air BMI result Body Mass Index 25.4 Labs Results: 02/22/22 07:54 02/22/22 07:54 Medications Medications Current Medications Acetaminophen (Acetaminophen 325 Mg Tablet) 650 mg PO Q6H PRN PRN Reason: Headache/Pain Mild Scale (1-3) Al Hydroxide/Mg Hydroxide (Magnesium Hydrox/Alum Hydrox 30 Ml Oral.Susp) 30 ml PO Q6H PRN PRN Reason: Heartburn/Nausea Divalproex Sodium (Divalproex Sodium Er 250 Mg Tab.Er.24h) 750 mg PO BEDTIME [facility] Last Admin: 02/27/22 20:39 Dose: 750 mg Fluticasone Propionate (Fluticasone Propionate Nasal 16 Gm [place]) 2 spray NOSTRIL-B DAILY [facility] Last Admin: 02/28/22 09:16 Dose: Not Given Hydroxyzine HCl (Hydroxyzine Hcl 25 Mg Tablet) 25 mg PO Q6H PRN PRN Reason: Anxiety Last Admin: 02/25/22 23:02 Dose: 25 mg Latanoprost (Latanoprost 0.005 % Ophth [place] 2.5 Ml Drops) 1 drop EYE-BOTH BEDTIME [facility] Last Admin: 02/27/22 20:40 Dose: 1 drop Levothyroxine Sodium (Levothyroxine Sodium 50 Mcg Tablet) 50 mcg PO DAILY@0600 [facility] Last Admin: 02/28/22 06:32 Dose: 50 mcg Magnesium Hydroxide (Milk Of Magnesia 30 Ml Oral.Susp) 30 ml PO DAILY PRN PRN Reason: Constipation Risperidone (Risperidone 0.5 Mg Tablet) 0.5 mg PO BID@0830,1430 [facility] Last Admin: 02/28/22 09:15 Dose: 0.5 mg Risperidone (Risperidone 1 Mg Tablet) 1 mg PO BEDTIME [facility] Last Admin: 02/27/22 20:40 Dose: 1 mg Sertraline HCl (Sertraline Hcl 50 Mg Tablet) 50 mg PO DAILY [facility] Last Admin: 02/28/22 09:15 Dose: 50 mg Trazodone HCl (Trazodone Hcl 50 Mg Tablet) 50 mg PO BEDTIME [facility] Last Admin: 02/27/22 20:39 Dose: 50 mg Vitamin D (Cholecalciferol (Vitamin D3) 10 Mcg Tablet) 10 mcg PO DAILY [facility] Last Admin: 02/28/22 09:15 Dose: 10 mcg Allergies Allergies Allergy/AdvReac Type Severity Reaction Status Date / Time codeine Allergy Mild Hives Verified 01/25/22 16:47 Sulfa (Sulfonamide Allergy Mild HIVES Verified 01/25/22 16:47 Antibiotics) Assessment & Plan Assessment & Plan (1) Alzheimer's dementia with behavioral disturbance: Status: Acute Code(s): G30.9 - Alzheimer's disease, unspecified; F02.81 - Dementia in other diseases classified elsewhere with behavioral disturbance (2) Aggression: Status: Resolved Code(s): R46.89 - Other symptoms and signs involving appearance and behavior (3) Mood disorder: Status: Acute Code(s): F39 - Unspecified mood [affective] disorder (4) Hypothyroidism: Status: Acute Code(s): E03.9 - Hypothyroidism, unspecified Plan The patient is an 86-year-old female, with a history of dementia and aggressive behavior in the context of delirium, readmitted since she refused to go back to his [facility].? Plan ?Continue with medications as per discharge on 02/18/2022: Risperdal 0.5 mg twice daily 1 mg at bedtime, Depakote 250 mg 3 times per day, Zoloft 50 mg and trazodone 50 mg as needed.? Primary treatment team to reengage with family Blood work VALP subtherapeutic. Change Depakote to ER at since she is more compliant at bedtime. Per medical consult: Patient wtih alzheimer's dementia, aggression, unspecified mood disorder, and hypothyroidism admitted for aggressive behavior with recent discharge from [facility] 4 days ago. 1-Alzheimer's dementia with behavioral disturbance -Former resident at [facility] unable to remain in residence due to aggression. -Pleasant but confused on exam. Continue plan per psychiatry 2- Hypothyroidism - Continue levothyroxine 3- Glaucoma -Continue timolol and latanoprost 4. Discharge planning I spent ___20___ minutes with the patient and/or on the patient floor today, greater than?50% of which was spent counseling/coordinating care. Reason for contiued inpatient stay Substantial Risk for: inability to function, rapid decompensation and med/psych decompensation
[2022-02-28 18:00] VITALS: BP 140/60; PULSE 74; RESP 16; TEMP 36.8; O2SAT 96
[2022-02-28] MEDS: Divalproex Sodium ER 250 MG TAB.ER.24H 750 MG PO (19:43)
[2022-02-28] MEDS: risperiDONE 1 MG TABLET PO (19:44)
[2022-02-28] MEDS: traZODone HCL 50 MG TABLET PO (19:44)
[2022-02-28] MEDS: Latanoprost 0.005 % Ophth Sol 2.5 ML DROPS 1 DROP EYE-BOTH (19:48)
[2022-03-01 06:00] VITALS: BP 114/60; PULSE 73; RESP 16; TEMP 37; O2SAT 94
[2022-03-01] MEDS: risperiDONE 0.5 MG TABLET PO (10:06)
[2022-03-01] MEDS: Sertraline HCL 50 MG TABLET PO (10:06)
[2022-03-01] MEDS: Cholecalciferol (Vitamin D3) 10 MCG TABLET PO (10:07)
--- NOTE | 2022-03-01 11:25 | PM.PSYDC ---
DS: Providers Provider Date of Service: 03/01/22 Date of admission: 02/19/22 20:01 Date of discharge: 03/01/22 Primary care physician: Sammy Gill MD Consults: 02/19/22 21:29 Consult to Hospitalist Routine Consulting Provider: Hospitalist Reason For Exam: Transfer from [facility]. H&P DS: Diagnosis Discharge Diagnosis (1) Alzheimer's dementia with behavioral disturbance: Status: Acute (2) Aggression: Status: Resolved (3) Mood disorder: Status: Acute (4) Hypothyroidism: Status: Acute DS: Medications Discharge Medications Home Medications: Home Medications Medication Instructions Recorded Confirmed cholecalciferol (vitamin D3) 25 25 mcg PO DAILY 02/19/22 02/19/22 mcg (1,000 unit) tablet fluticasone propionate 50 2 spray intranasal DAILY 02/19/22 02/19/22 mcg/actuation nasal spray,suspension latanoprost 0.005 % eye drops 1 drp ophthalmic (eye) QPM 02/19/22 02/19/22 levothyroxine 50 mcg tablet 1 tab PO DAILY 02/19/22 02/19/22 timolol maleate 0.5 % once daily 1 drp ophthalmic (eye) DAILY 02/19/22 02/19/22 eye drops Previous Rx's Medication Instructions Recorded divalproex 125 mg capsule,delayed 250 mg PO TID 30 days #180 caps 02/18/22 release sprinkle risperidone 0.5 mg tablet 0.5 mg PO BID@0800,1500 30 days 02/18/22 #60 tabs risperidone 1 mg tablet 1 mg PO BEDTIME 30 days #30 tabs 02/18/22 sertraline 50 mg tablet 50 mg PO DAILY 30 days #30 tabs 02/18/22 trazodone 50 mg tablet 50 mg PO BEDTIME PRN Insomnia 30 02/18/22 days #30 tabs cholecalciferol (vitamin D3) 10 10 mcg PO DAILY 30 days #30 tabs 02/28/22 mcg (400 unit) tablet (Vitamin D3) divalproex 250 mg tablet,extended 750 mg PO BEDTIME 30 days #90 tabs 02/28/22 release 24 hr fluticasone propionate 50 2 spray intranasal DAILY 30 days 02/28/22 mcg/actuation nasal #1 units spray,suspension latanoprost 0.005 % eye drops 1 drp ophthalmic (eye) BEDTIME 30 02/28/22 days #5 mL levothyroxine 50 mcg tablet 50 mcg PO DAILY@0600 30 days #30 02/28/22 tabs risperidone 0.5 mg tablet 0.5 mg PO BID@0830,1430 30 days 02/28/22 #60 tabs risperidone 1 mg tablet 1 mg PO BEDTIME 30 days #30 tabs 02/28/22 sertraline 50 mg tablet 50 mg PO DAILY 30 days #30 tabs 02/28/22 trazodone 50 mg tablet 50 mg PO BEDTIME 30 days #30 tabs 02/28/22 Mental Status Exam Mental Status Exam Patient Appearance: Appropriate Patient Orientation: Person Level of Consciousness: Awake Patient Behavior: Cooperative and Passive Mood Description: Calm Affect Description: Labile Patient Cognition Impaired: Yes Ability to Follow Directions: Good Speech Pattern: Clear Hallucinations: None Delusions: Not Present Thought Content: positive for [place] Judgement: Poor DS: Summary Hospital Course Hospital Course: The patient was readmitted into the facility after a failed discharged to an assisted living facility. On admission the patient was exactly as she was discharged before, chronically confused with dementia but easily redirectable. She was continue her regular medications and we start working on discharge plan again. The social insurance analyst contact her family and we refer her to a different assisted living facility. Since there were no safety concerns discharge planning was continue. At baseline, the patient is confused with advanced dementia, easily redirectable and very pleasant. No side effects with the use of psychotropics. Time spent discussing smoking cessation with patient: 3 to 10 minutes Status at Discharge Cognitive/behavioral status at discharge: Impaired at baseline Functional status at discharge: independent ambulation Overall status at discharge: patient is back to baseline Time Spent with Patient Time attestation: Total time spent providing and/or coordinating discharge services: Time spent: Less than 30 minutes Discharge Plan Discharge Patient Disposition: er [facility] Discharge Diagnosis: Mood disorder Dementia Referrals: Sammy Gill MD [Primary Care Provider] - 1 Week Discharge Medications: New latanoprost 0.005 % Drops 1 drp ophthalmic (eye) BEDTIME 30 Days Qty: 5 0RF trazodone 50 mg Tablet 50 mg PO BEDTIME 30 Days Qty: 30 0RF levothyroxine 50 mcg Tablet 50 mcg PO DAILY@0600 30 Days Qty: 30 0RF fluticasone propionate 50 mcg/actuation [place],Suspension 2 spray intranasal DAILY 30 Days Qty: 1 0RF sertraline 50 mg Tablet 50 mg PO DAILY 30 Days Qty: 30 0RF risperidone 1 mg Tablet 1 mg PO BEDTIME 30 Days Qty: 30 0RF cholecalciferol (vitamin D3) [Vitamin D3] 10 mcg (400 unit) Tablet 10 mcg PO DAILY 30 Days Qty: 30 0RF risperidone 0.5 mg Tablet 0.5 mg PO BID@0830,1430 30 Days Qty: 60 0RF divalproex 250 mg Tablet Extended Release 24 Hr 750 mg PO BEDTIME 30 Days Qty: 90 0RF Discontinued latanoprost 0.005 % drops 1 drp ophthalmic (eye) QPM levothyroxine 50 mcg tablet 1 tab PO DAILY fluticasone propionate 50 mcg/actuation [place],Suspension 2 spray INTRANASAL DAILY Rx Instructions: administer into each nostril timolol maleate 0.5 % Drops, Once Daily 1 drp OPHTHALMIC (EYE) DAILY cholecalciferol (vitamin D3) 25 mcg (1,000 unit) Tablet 25 mcg PO DAILY trazodone 50 mg Tablet 50 mg PO BEDTIME PRN (Reason: Insomnia) 30 Days Qty: 30 0RF divalproex 125 mg Capsule, Delayed Rel Sprinkle 250 mg PO TID 30 Days Qty: 180 0RF risperidone 1 mg Tablet 1 mg PO BEDTIME 30 Days Qty: 30 0RF risperidone 0.5 mg Tablet 0.5 mg PO BID@0800,1500 30 Days Qty: 60 0RF sertraline 50 mg tablet 50 mg PO DAILY 30 Days Qty: 30 0RF Discharge Orders: Discharge Order (Routine); Ordered 03/01/22 Ordered By: Ino Crouch Diet: Advance to usual diet Activity on Discharge: As tolerated Stand Alone Forms: Patient Portal Discharge page Care Plan Goals: Care plan goals achieved in this admission Health Concerns: Continue treatment by primary care physician as an outpatient Plan of Treatment: Continue medication management as an outpatient Assessment: Elderly female with a long history of dementia that has progressed with behavioral disturbances. The patient becomes more delirious whenever she has a UTI or any other infection. Currently she is safe for discharge.
[2022-03-01] MEDS: LORazepam 1 MG TABLET 2 MG PO (12:37)
== END 2022-03-01 13:08 | DRG 885 ==
PROVIDERS: Admitting Provider Psychiatry & Neurology Psychiatry; PCP Internal Medicine; Visit Provider Psychiatry & Neurology Psychiatry
DX: F39 Unspecified mood [affective] disorder (principal); E03.9 Hypothyroidism, unspecified; G30.9 Alzheimer's disease, unspecified; F02.80 Dementia in other diseases classified elsewhere, unspecified severity, without behavioral disturbance, psychotic disturbance, mood disturbance, and anxiety; Z20.822 Contact with and (suspected) exposure to COVID-19; Z88.2 Allergy status to sulfonamides; Z88.5 Allergy status to narcotic agent; Z79.51 Long term (current) use of inhaled steroids; Z79.890 Hormone replacement therapy; Z79.899 Other long term (current) drug therapy
CPT/HCPCS: 36415; 80048; 80053; 80061; 80076; 80164; 82607; 82746; 83036; 83735; 84439; 84443; 85025; 87635